=== PATIENT | male | born 1980 | race Caucasian/White ===

== ENCOUNTER 2022-09-04 14:53 | Inpatient (IN) | payer OTHER ==
[2022-09-04] MEDS ORDERED: MORPHINE SULFATE 4 MG/ML SYRINGE IV STA (15:35)
[2022-09-04] MEDS ORDERED: ACETAMINOPHEN IV (For NPO) 1,000 MG in EMPTY BAG 1 BAG IVPB STA ×2 (15:35→20:22)
--- NOTE | 2022-09-04 15:41 | ED ---
General Adult HPI - General Chief complaint: Abdominal Pain Stated complaint: Abd pain Time Seen by Provider: 09/04/22 15:05 Source: patient, EMS Mode of arrival: EMS Limitations: no limitations - History of Present Illness Initial comments: Dictation was produced using [employer] dictation software. please excuse any grammatical, word or spelling errors. Chief Complaint: 41-year-old male presents to the emergency department for abdominal pain. He is 24 hours status post colonoscopy History of Present Illness: Patient is a 41-year-old male yesterday he had a colonoscopy. He had 2 polyps removed. He does report that there were a couple clips placed. Patient states that shortly after he began experiencing severe abdominal pain. He also complains of fevers. Prior to the procedure patient has felt at baseline. Patient complains of nausea and diarrhea. Patient denies any respiratory infectious symptoms. The ROS documented in this emergency department record has been reviewed and confirmed by me. Those systems with pertinent positive or negative responses have been documented in the HPI. All other systems are other negative and/or noncontributory. PHYSICAL EXAM: General Impression: Alert and oriented x3, acute distress secondary to pain HEENT: Normocephalic atraumatic, extra-ocular movements intact, pupils equal and reactive to light bilaterally, mucous membranes moist. Cardiovascular: Heart regular rate and rhythm Chest: Able to complete full sentences, no retractions, no tachypnea Abdomen: guarding, diffuse abdominal tenderness worse in the left lower quadrant, non-distended, no organomegaly Musculoskeletal: Pulses present and equal in all extremities, no peripheral edema Motor: no focal deficits noted Neurological: CN II-XII grossly intact, no focal motor or sensory deficits noted Skin: Intact with no visualized rashes Psych: Normal affect and mood ED course: 41 y Old male presents emergency Department with fever of abdominal pain status post colonoscopy yesterday vital signs upon arrival shows temperature 101.8, rest of vital signs within acceptable limits. Nursing notes and chart review was performed My EKG interpretation: Ventricular rate 97, sinus rhythm,. 152, QRS 76, QTC 361. No MT prolongation, no QTC prolongation, no ST or T-wave changes noted. No old EKG for comparison Overall, this EKG is unremarkable Laboratory evaluation obtained. CBC, coag panel, walk panel was obtained. Of note patient has mild lactic acidosis 2.4. Slightly elevated liver enzymes. 4 panel viral PCR is negative. Computed tomography scan abdomen and pelvis shows limited pneumoperitoneum with fat stranding and wall thickening around the sigmoid colon site for colitis first diverticulitis. Case was discussed with Dr. Montague who is stone decorator for Dr. Adams the GI specialist that performed the colonoscopy yesterday. 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 He does however request the patient be admitted with antibiotics and medical monitoring.Case is also discussed with Dr. Sapp, on-call surgeon who is willing to consult on the patient. She did come and evaluate the patient at the bedside. Further recommendations pending Was pt. sent in by a medical professional or institution (, PA, TUBER HELPER, urgent care, hospital, or shelter...) When possible be specific @ -No Did you speak to anyone other than the patient for history (EMS, parent, family, police, friend...)? What history was obtained from this source @ -EMS Did you review nursing and triage notes (agree or disagree)? Why? @ -I reviewed and agree with nursing and triage notes Were old charts reviewed (outside hosp., previous admission, EMS record, old EKG, old radiological studies, urgent care reports/EKG's, shelter records)? Report findings @ -No old charts were reviewed Differential Diagnosis (chest pain, altered mental status, abdominal pain women, abdominal pain men, vaginal bleeding, weakness, fever, dyspnea, syncope, headache, dizziness, GI bleed, back pain, seizure, CVA, palpatations, mental health)? @ -Differential Abdominal Pain Men: Appendicitis, cholecystitis, diverticulosis, ischemic bowel, pancreatitis, hepatitis, UTI, gastroenteritis, AAA, incarcerated hernia, bowel obstruction, constipation, inflammatory bowel, hepatitis, peptic ulcer disease, splenic infarction, perforated viscus, testicular torsion, this is not meant to be an all-inclusive list EKG interpreted by me (3pts min.). @ -As above X-rays interpreted by me (1pt min.). @ -None done CT interpreted by me (1pt min.). @ -As above U/S interpreted by me (1pt. min.). @ -None done What testing was considered but not performed or refused? (CT, X-rays, U/S, labs)? Why? @ -X-ray was considered however patient is getting a computed tomography scan What meds were considered but not given or refused? Why? @ -None Did you discuss the management of the patient with other professionals (professionals i.e. , PA, TUBER HELPER, lab, RT, psych nurse, protective services social worker, molasses preparer, teacher, risk control officer, pillowcase cleaner)? Give summary @ -See above Was smoking cessation discussed for >3mins.? @ -No Was critical care preformed (if so, how long)? @ -No Were there social determinants of health that impacted care today? How? (Ho melessness, low income, unemployed, alcoholism, drug addiction, transportation, low edu. Level, literacy, decrease access to med. care, care home, rehab)? @ -No Was there de-escalation of care discussed even if they declined (Discuss DNR or withdrawal of care, Hospice)? DNR status @ -No What co-morbidities impacted this encounter? (DM, HTN, Smoking, COPD, CAD, Cancer, CVA, ARF, Chemo, Hep., AIDS, mental health diagnosis, sleep apnea, morbid obesity)? @ -None Was patient admitted / discharged? Hospital course, mention meds given and route, prescriptions, significant lab abnormalities, going to OR and other pertinent info. @ -See above Undiagnosed new problem with uncertain prognosis? @ -No Drug Therapy requiring intensive monitoring for toxicity (Heparin, Nitro, Insulin, Cardizem)? @ -No Were any procedures done? @ -No Diagnosis/symptom? @ -Post-polypectomy syndrome, iatrogenic pneumoperitoneum versus peritonitis Acute, or Chronic, or Acute on Chronic? @ -Acute Uncomplicated (without systemic symptoms) or Complicated (systemic symptoms)? @ -Complicated Side effects of treatment? @ -No Exacerbation, Progression, or Severe Exacerbation? @ -No Poses a threat to life or bodily function? How? (Chest pain, [place], [place], pneumonia, PE, COPD, DKA, ARF, appy, cholecystitis, CVA, Diverticulitis, Homicidal, Suicidal, threat to staff... and all critical care pts) @ -Yes - Related Data Allergies Allergy/AdvReac Type Severity Reaction Status Date / Time No Known Allergies Allergy Verified 09/04/22 16:26 Review of Systems ROS Statement: Those systems with pertinent positive or pertinent negative responses have been documented in the HPI. ROS Other: All systems not noted in ROS Statement are negative. General Exam Limitations: no limitations Course Vital Signs 09/04/22 09/04/22 09/04/22 14:59 15:00 15:01 Temperature 101.8 F H Pulse Rate 99 102 H 101 H Respiratory 24 20 20 Rate Blood Pressure 141/93 O2 Sat by Pulse 96 96 Oximetry 09/04/22 09/04/22 09/04/22 15:30 16:00 16:30 Temperature Pulse Rate 98 100 100 Respiratory 20 20 20 Rate Blood Pressure 133/90 148/96 135/92 O2 Sat by Pulse 97 98 Oximetry 09/04/22 09/04/22 17:00 17:46 Temperature 100.3 F H Pulse Rate 106 H Respiratory Rate Blood Pressure 123/88 O2 Sat by Pulse 95 Oximetry Medical Decision Making - Lab Data Result diagrams: 09/04/22 15:31 09/04/22 15:31 Lab Results 09/04/22 09/04/22 09/04/22 Range/Units 15:31 15:31 15:31 WBC 6.5 (3.8-10.6) k/uL RBC 3.93 L (4.30-5.90) m/uL Hgb 13.4 (13.0-17.5) gm/dL Hct 40.1 (39.0-53.0) % MCV 102.1 H (80.0-100.0) fL MCH 34.0 (25.0-35.0) pg MCHC 33.3 (31.0-37.0) g/dL RDW 14.2 (11.5-15.5) % Plt Count 174 (150-450) k/uL MPV 8.1 Neutrophils % 87 % Lymphocytes % 6 % Monocytes % 5 % Eosinophils % 1 % Basophils % 0 % Neutrophils # 5.7 (1.3-7.7) k/uL Lymphocytes # 0.4 L (1.0-4.8) k/uL Monocytes # 0.3 (0-1.0) k/uL Eosinophils # 0.0 (0-0.7) k/uL Basophils # 0.0 (0-0.2) k/uL Macrocytosis Slight PT 10.6 (9.0-12.0) sec INR 1.0 (<1.2) APTT 23.2 (22.0-30.0) sec Sodium 134 L (137-145) mmol/L Potassium 5.4 H (3.5-5.1) mmol/L Chloride 102 (98-107) mmol/L Carbon Dioxide 25 (22-30) mmol/L Anion Gap 7 mmol/L BUN 11 (9-20) mg/dL Creatinine 1.19 (0.66-1.25) mg/dL Est GFR (CKD-EPI)AfAm 88 (>60 ml/min/1.73 sqM) Est GFR (CKD-EPI)NonAf 76 (>60 ml/min/1.73 sqM) Glucose 151 H (74-99) mg/dL Lactic Ac Sepsis Rflx Plasma Lactic Acid Jose Angel (0.7-2.0) mmol/L Calcium 9.0 (8.4-10.2) mg/dL Total Bilirubin 3.0 H (0.2-1.3) mg/dL AST 124 H (17-59) U/L ALT 90 H (4-49) U/L Alkaline Phosphatase 152 H (38-126) U/L Total Protein 8.2 (6.3-8.2) g/dL Albumin 4.5 (3.5-5.0) g/dL Lipase 18 L (23-300) U/L Influenza Type A (PCR) (Not Detectd) Influenza Type B (PCR) (Not Detectd) RSV (PCR) (Not Detectd) SARS-CoV-2 (PCR) (Not Detectd) 09/04/22 09/04/22 09/04/22 Range/Units 15:31 15:31 16:57 WBC (3.8-10.6) k/uL RBC (4.30-5.90) m/uL Hgb (13.0-17.5) gm/dL Hct (39.0-53.0) % MCV (80.0-100.0) fL MCH (25.0-35.0) pg MCHC (31.0-37.0) g/dL RDW (11.5-15.5) % Plt Count (150-450) k/uL MPV Neutrophils % % Lymphocytes % % Monocytes % % Eosinophils % % Basophils % % Neutrophils # (1.3-7.7) k/uL Lymphocytes # (1.0-4.8) k/uL Monocytes # (0-1.0) k/uL Eosinophils # (0-0.7) k/uL Basophils # (0-0.2) k/uL Macrocytosis PT (9.0-12.0) sec INR (<1.2) APTT (22.0-30.0) sec Sodium (137-145) mmol/L Potassium (3.5-5.1) mmol/L Chloride (98-107) mmol/L Carbon Dioxide (22-30) mmol/L Anion Gap mmol/L BUN (9-20) mg/dL Creatinine (0.66-1.25) mg/dL Est GFR (CKD-EPI)AfAm (>60 ml/min/1.73 sqM) Est GFR (CKD-EPI)NonAf (>60 ml/min/1.73 sqM) Glucose (74-99) mg/dL Lactic Ac Sepsis Rflx Y Plasma Lactic Acid Jose Angel 2.4 H* (0.7-2.0) mmol/L Calcium (8.4-10.2) mg/dL Total Bilirubin (0.2-1.3) mg/dL AST (17-59) U/L ALT (4-49) U/L Alkaline Phosphatase (38-126) U/L Total Protein (6.3-8.2) g/dL Albumin (3.5-5.0) g/dL Lipase (23-300) U/L Influenza Type A (PCR) Not Detected (Not Detectd) Influenza Type B (PCR) Not Detected (Not Detectd) RSV (PCR) Not Detected (Not Detectd) SARS-CoV-2 (PCR) Not Detected (Not Detectd) Critical Care Time Critical Care Time: Yes Total Critical Care Time: 33 Disposition Clinical Impression: Abdominal pain, Pneumoperitoneum Disposition: ADMITTED IP TO THIS [facility] Condition: Serious Referrals: None,Stated [Primary Care Provider] - 1-2 days Decision Time: 19:03
[2022-09-04 16:41] LABS: Albumin 4.5 g/dL (3.5-5.0); Potassium 5.4 mmol/L (3.5-5.1); Total Protein 8.2 g/dL (6.3-8.2)
[2022-09-04 16:51] LABS: Partial Thromboplastin Time 23.2 sec (22.0-30.0); Prothrombin Time 10.6 sec (9.0-12.0)
[2022-09-04 16:56] LABS: Basophils % (A) 0 %; Eosinophils % (A) 1 %; HCT 40.1 % (39.0-53.0); HGB 13.4 gm/dL (13.0-17.5); Lymphocytes # (A) 0.4 k/uL (1.0-4.8); Lymphocytes % (A) 6 %; MCHC 33.3 g/dL (31.0-37.0); MCV 102.1 fL (80.0-100.0); Macrocytosis Slight; Mean Platelet Volume 8.1; Monocytes # (A) 0.3 k/uL (0-1.0); Monocytes % (A) 5 %; Neutrophils # (A) 5.7 k/uL (1.3-7.7); Neutrophils % (A) 87 %; Platelet Count 174 k/uL (150-450); RBC 3.93 m/uL (4.30-5.90); RDW 14.2 % (11.5-15.5); WBC 6.5 k/uL (3.8-10.6)
[2022-09-04] MEDS ORDERED: ONDANSETRON 4 MG/2 ML VIAL IVP STA (17:09)
[2022-09-04] MEDS ORDERED: PIPERACILLIN-TAZOBACTAM 3.375 GM in SODIUM CHLORIDE 0.9% 100 ML IVPB STA ×2 (17:30→20:21)
--- NOTE | 2022-09-04 17:35 | CT ---
EXAMINATION TYPE: CT abdomen pelvis w con DATE OF EXAM: 09/04/2022 COMPARISON: None HISTORY: abd pain, post op colonoscopy with clip placement CT DLP: 1709.8 mGycm Automated exposure control for dose reduction was used. CONTRAST: Performed with IV Contrast, patient injected with 100 mL of Isovue 300. Images obtained from the diaphragm to the floor the pelvis with the IV contrast. There is some patchy atelectasis at the lung bases. Heart size is normal. No pericardial effusion. Th ere are clips from cholecystectomy. Bile ducts are not dilated. No focal liver defect. Spleen is inta ct. The stomach is intact. There is no pancreatic mass. There is no adrenal mass. Kidneys show satisfactory contrast opacification. No hydronephrosis. Ureter s are not dilated. No retroperitoneal adenopathy. There is bilateral hip prosthesis. Bony pelvis is i ntact. The bladder distends smoothly. No evidence of a pelvic mass. There are a few sigmoid diverticu la. There is mild wall thickening and fat stranding around the proximal sigmoid colon and the descend ing colon. There is small amount of free air on the left side adjacent to the splenic flexure and the stomach. There is minimal free air anterior to the stomach. The lumbar vertebrae have normal alignment. Posterior elements are intact. No compression fracture. B deangelo pelvis is intact. IMPRESSION: There is limited pneumoperitoneum. Fat stranding and wall thickening involving the sigmoid colon cons istent with diverticulitis or colitis. Single surgical clip noted in the mid sigmoid colon consistent with the history of colonoscopy and surgical clip. Mild subsegmental atelectasis at the lung bases. Exam was discussed with emergency room attending staff at 5:30 PM.
[2022-09-04] MEDS ORDERED: HYDROmorphone 1 MG/ML 1 ML SYRINGE IVP STA (17:59)
[2022-09-04] MEDS ORDERED: ONDANSETRON 4 MG/2 ML VIAL IVP PRN (18:55)
[2022-09-04] MEDS ORDERED: NALOXONE 0.4 MG/ML 1 ML VIAL IV PRN (18:55)
[2022-09-04] MEDS: SODIUM CHLORIDE 0.9% 1,000 ML IV SCH (19:35)
--- NOTE | 2022-09-04 19:43 | P.GSHP ---
History of Present Illness H&P Date: 09/04/22 Chief Complaint: foci of free air on CT s/p colonoscopy 41 M who underwent colonoscopy on 09/03 at [facility] as part of an ongoing work up for electrolyte dyscrasia, joint pain & diarrhea. Underwent hot snare polypectomy at the time of colonoscopy. Yesterday on drive home felt cramping diffuse abdominal pain, which increased in severity this morning. Hasn't eaten since prior to colonoscopy prep; had a bit of water this morning. Passing clear liquid stools. Associated nausea. Pain progressively got worse throughout the day & came to ER to get evaluated. CT was concerning for foci of free air along sigmoid colon. ER physician was in touch with endoscopist at [facility]; suspected post polypectomy syndrome. On ride to hospital, bumps in road worsened pain. Dilaudid helped briefly with pain. - Constitutional Comment: sweating Constitutional: Reports anorexia, Reports fever, Reports poor appetite, Reports weakness - Cardiovascular Cardiovascular: Reports high blood pressure, Reports shortness of breath - Respiratory Respiratory: Reports pain on inspiration - Gastrointestinal Gastrointestinal: Reports abdominal pain, Reports loss of appetite, Reports nausea - Musculoskeletal Comment: Chronic pain. Severe gout. - Psychiatric Psychiatric: Reports anxiety - Endocrine Comment: Electrolyte dyscrasia. Past Medical History Additional Past Medical History / Comment(s): Gout, HTN, Electrolyte abnormality Past Surgical History: Joint Replacement Additional Past Surgical History / Comment(s): Bilateral hip replacement, Left shoulder replacement, Denies abdominal surgeries, Colonoscopy Past Psychological History: Anxiety Smoking Status: Vaper Past Alcohol Use History: Occasional Past Drug Use History: Marijuana - Past Family History Father Additional Family Medical History / Comment(s): Diverticulitis, Gout, HTN Medications and Allergies Home Medications Medication Instructions Recorded Confirmed Type Calcium Carbonate [Tums] 1,000 mg PO BID 09/04/22 09/04/22 History Gabapentin [Neurontin] 300 mg PO BID 09/04/22 09/04/22 History Magnesium Oxide [Mag-Ox] 400 mg PO BID 09/04/22 09/04/22 History Multivitamins, Thera [Multivitamin 1 tab PO DAILY 09/04/22 09/04/22 History (formulary)] Potassium Chloride [Potassium 30 meq PO BID 09/04/22 09/04/22 History Chloride ER] Sildenafil Citrate 50 mg PO DAILY PRN 09/04/22 09/04/22 History allopurinoL [Zyloprim] 200 mg PO DAILY 09/04/22 09/04/22 History calcitrioL [Calcitriol] 0.25 mcg PO DAILY 09/04/22 09/04/22 History hydrOXYzine HCL [Atarax] 25 mg PO TID PRN 09/04/22 09/04/22 History lisinopriL [Zestril] 20 mg PO DAILY 09/04/22 09/04/22 History Allergies Allergy/AdvReac Type Severity Reaction Status Date / Time No Known Allergies Allergy Verified 09/04/22 19:08 Surgical - Exam Vital Signs Pulse Resp 99 24 09/04/22 14:59 09/04/22 14:59 - General moderate distress, severe pain - Eyes no icteric - ENT poor pen[facility] - Respiratory normal respiratory effort, clear to auscultation - Cardiovascular Rhythm: regular - Abdomen Diffuse tenderness to palpation, peritoneal. Abdomen: tender, no surgical scars, guarding, distended - Integumentary Diaphoretic - Psychiatric oriented to person, oriented to place, memory intact Results - Labs 09/04/22 15:31 09/04/22 15:31 Abnormal Lab Results - Last 24 Hours (Table) 09/04/22 09/04/22 09/04/22 Range/Units 15:31 15:31 15:31 RBC 3.93 L (4.30-5.90) m/uL MCV 102.1 H (80.0-100.0) fL Lymphocytes # 0.4 L (1.0-4.8) k/uL Sodium 134 L (137-145) mmol/L Potassium 5.4 H (3.5-5.1) mmol/L Glucose 151 H (74-99) mg/dL Plasma Lactic Acid Jose Angel 2.4 H* (0.7-2.0) mmol/L Total Bilirubin 3.0 H (0.2-1.3) mg/dL AST 124 H (17-59) U/L ALT 90 H (4-49) U/L Alkaline Phosphatase 152 H (38-126) U/L Lipase 18 L (23-300) U/L Diabetes panel 09/04/22 Range/Units 15:31 Sodium 134 L (137-145) mmol/L Potassium 5.4 H (3.5-5.1) mmol/L Chloride 102 (98-107) mmol/L Carbon Dioxide 25 (22-30) mmol/L BUN 11 (9-20) mg/dL Creatinine 1.19 (0.66-1.25) mg/dL Glucose 151 H (74-99) mg/dL Calcium 9.0 (8.4-10.2) mg/dL AST 124 H (17-59) U/L ALT 90 H (4-49) U/L Alkaline Phosphatase 152 H (38-126) U/L Total Protein 8.2 (6.3-8.2) g/dL Albumin 4.5 (3.5-5.0) g/dL Calcium panel 09/04/22 Range/Units 15:31 Calcium 9.0 (8.4-10.2) mg/dL Albumin 4.5 (3.5-5.0) g/dL Pituitary panel 09/04/22 Range/Units 15:31 Sodium 134 L (137-145) mmol/L Potassium 5.4 H (3.5-5.1) mmol/L Chloride 102 (98-107) mmol/L Carbon Dioxide 25 (22-30) mmol/L BUN 11 (9-20) mg/dL Creatinine 1.19 (0.66-1.25) mg/dL Glucose 151 H (74-99) mg/dL Calcium 9.0 (8.4-10.2) mg/dL Adrenal panel 09/04/22 Range/Units 15:31 Sodium 134 L (137-145) mmol/L Potassium 5.4 H (3.5-5.1) mmol/L Chloride 102 (98-107) mmol/L Carbon Dioxide 25 (22-30) mmol/L BUN 11 (9-20) mg/dL Creatinine 1.19 (0.66-1.25) mg/dL Glucose 151 H (74-99) mg/dL Calcium 9.0 (8.4-10.2) mg/dL Total Bilirubin 3.0 H (0.2-1.3) mg/dL AST 124 H (17-59) U/L ALT 90 H (4-49) U/L Alkaline Phosphatase 152 H (38-126) U/L Total Protein 8.2 (6.3-8.2) g/dL Albumin 4.5 (3.5-5.0) g/dL - Imaging Abdominal x-ray: report reviewed, image reviewed (CT shows foci of free air along colon & anterior stomach. Diverticula present.) Assessment and Plan Assessment: Abdominal pain with signs of peritonitis Foci of pneumoperitoneum on CT S/P colonoscopy with polypectomy 09/03 ([facility]) Plan: To OR for diagnostic laparoscopy, possible laparotomy, possible bowel resection, possible ostomy. Post-op admission. Time with Patient: Less than 30 (About 30 minutes spent discussing history, diagnosis & surgery. Details of procedure along with risks & benefits disucssed with patient & his girlfriend. Need for possible colostomy also discussed. Quesions answered.)
[2022-09-04] MEDS: HYDROmorphone 1 MG/ML 1 ML SYRINGE IVP PRN ×2 (19:45→23:39)
[2022-09-04] MEDS ORDERED: DEXAMETHASONE SOD PHOSPHATE 4 MG/ML 1 ML VIAL IV ONE (20:00)
[2022-09-04] MEDS ORDERED: LIDOCAINE 1% (10MG/ML) FOR IV START INTRADERMA PRN (20:00)
[2022-09-04] MEDS ORDERED: LACTATED RINGERS 1,000 ML IV SCH (20:00)
[2022-09-04] MEDS ORDERED: PROPOFOL 10 MG/ML 20 ML VIAL IV ONE (20:10)
[2022-09-04] MEDS ORDERED: MIDAZOLAM 2 MG/2 ML VIAL ONE (20:10)
[2022-09-04] MEDS ORDERED: GLYCOPYRROLATE 0.2 MG/ML 2 ML VIAL ONE (20:10)
[2022-09-04] MEDS ORDERED: fentaNYL (PF) 50 MCG/ML 2 ML AMP ONE (20:10)
[2022-09-04] MEDS ORDERED: LACTATED RINGERS 1,000 ML IV ONE ×3 (20:10→22:38)
[2022-09-04] MEDS ORDERED: SODIUM CHLORIDE 0.9% 1,000 ML IV ONE (20:10)
[2022-09-04] MEDS ORDERED: SUCCINYLCHOLINE CHLORIDE 200 MG/10 ML VIAL IV ONE (20:10)
[2022-09-04] MEDS ORDERED: NEOSTIGMINE 1 MG/ML 10 ML VIAL ONE (20:10)
[2022-09-04] MEDS ORDERED: LIDOCAINE 2% INJ 20 MG/ML (2 ML VIAL) ONE (20:10)
[2022-09-04] MEDS ORDERED: ROCURONIUM 10 MG/ML (5 ML VIAL) IV ONE (20:10)
[2022-09-04] MEDS ORDERED: KETAMINE 10 MG/ML 20 ML VIAL ONE (20:10)
[2022-09-04] MEDS ORDERED: KETOROLAC 15 MG/ML 1 ML VIAL IVP PRN (22:38)
--- NOTE | 2022-09-04 22:48 | P.OP ---
Date of Procedure: 09/04/22 Preoperative Diagnosis: Abdominal pain with signs of peritonitis Focal pneumoperitoneum on CT S/P Colonoscopy 09/03 Postoperative Diagnosis: Pin hole perforation of sigmoid colon Procedure(s) Performed: Diagnostic laparoscopy, converted to laparotomy with oversew of pinpoint perforation Anesthesia: GETA Surgeon: Sylwia Sapp Estimated Blood Loss (ml): 25 Pathology: none sent Condition: stable Disposition: PACU (Please see dictation for full details.)
[2022-09-05 01:00] LABS: Appearance,Urine Clear (Clear); Bilirubin,Urine Negative (Negative); Blood,Urine Negative (Negative); Color,Urine Yellow; Glucose,Urine (UA) 1+ (Negative); Ketones,Urine Negative (Negative); Leukocyte Esterase,Urine Negative (Negative); Nitrite,Urine Negative (Negative); Protein,Urine Negative (Negative); Specific Gravity,Urine 1.037 (1.001-1.035); Urobilinogen,Urine <2.0 mg/dL (<2.0)
[2022-09-05] MEDS: HYDROmorphone 1 MG/ML 1 ML SYRINGE IVP PRN ×8 (02:38→23:42)
[2022-09-05] MEDS: PIPERACILLIN-TAZOBACTAM 3.375 GM in SODIUM CHLORIDE 0.9% 100 ML IVPB SCH ×3 (04:31→20:06)
[2022-09-05] MEDS: SODIUM CHLORIDE 0.9% 1,000 ML IV SCH ×5 (04:31→15:51)
[2022-09-05] MEDS ORDERED: HYDROmorphone 0.5 MG/0.5 ML SYRINGE IVP PRN (07:00)
[2022-09-05] MEDS ORDERED: ONDANSETRON 4 MG/2 ML VIAL IVP PRN (07:00)
[2022-09-05] MEDS: PANTOPRAZOLE 40 MG/10 ML VIAL IV SCH (08:34)
[2022-09-05] MEDS ORDERED: ENOXAPARIN 30 MG/0.3 ML SYRINGE SQ SCH (09:00)
[2022-09-05 09:29] LABS: African American GFR (CKD) 72.3 (60.0-200.0); Albumin 3.6 g/dL (3.8-4.9); Albumin/Globulin Ratio 1.44 (1.60-3.17); Anion Gap 9.9 mmol/L (10.00-18.00); BUN/Creat Ratio 10.14 Ratio (12.00-20.00); Blood Urea Nitrogen 14.2 mg/dL (9.0-27.0); Calcium 7.9 mg/dL (8.7-10.3); Carbon Dioxide 23.1 mmol/L (20.0-27.5); Globulin 2.5 g/dL (1.6-3.3); Magnesium 1.2 mg/dL (1.5-2.4); Non-African American GFR(CKD) 62.4 (60.0-200.0); Phosphorus 4.4 mg/dL (2.4-5.1); Potassium 5.3 mmol/L (3.5-5.5); Total Bilirubin 2.3 mg/dL (0.30-1.20); Total Protein 6.1 g/dL (6.2-8.2)
[2022-09-05 10:51] LABS: Basophils # (A) 0.02 X 10*3/uL (0.00-0.10); Basophils % (A) 0.2 %; Eosinophils # (A) 0 X 10*3/uL (0.04-0.35); Eosinophils % (A) 0 %; HCT 32.8 % (39.6-50.0); HGB 10.7 g/dL (13.0-17.0); Immature Grans, Automated 0.2 %; Lymphocytes # (A) 0.52 X 10*3/uL (0.90-5.00); Lymphocytes % (A) 5.2 %; MCH 34.3 pg (27.0-32.0); MCHC 32.6 g/dL (32.0-37.0); MCV 105.1 fL (80.0-97.0); Mean Platelet Volume 10.3 fL (9.5-12.2); Monocytes # (A) 0.78 X 10*3/uL (0.20-1.00); Monocytes % (A) 7.8 %; NRBC Per 100 WBC 0 /100 WBCS (0.0-0.0); Neutrophils # (A) 8.62 X 10*3/uL (1.80-7.70); Neutrophils % (A) 86.6 %; Platelet Count 164 X 10*3/uL (140-440); RBC 3.12 X 10*6/uL (4.40-5.60); RBC Morphology NORMAL; RDW 13.9 % (11.5-14.5); WBC 9.96 X 10*3/uL (4.50-10.00)
[2022-09-05] MEDS: GABAPENTIN 300 MG CAP PO SCH ×2 (11:35→20:48)
[2022-09-05] MEDS: allopurinoL 100 MG TAB PO SCH (11:35)
[2022-09-05] MEDS: lisinopriL 20 MG TAB PO SCH (11:35)
[2022-09-05] MEDS ORDERED: MAGNESIUM OXIDE 400 MG TAB PO STA (12:24)
--- NOTE | 2022-09-05 12:35 | P.PN ---
Subjective Progress Note Date: 09/05/22 Principal diagnosis: Microperforation of sigmoid colon S/P Colonoscopy 09/03 ([facility]) 41 M who underwent colonoscopy on 09/[address] [facility] as part of an ongoing work up for electrolyte dyscrasia, joint pain & diarrhea. Underwent hot snare polypectomy at the time of colonoscopy. Yesterday on drive home felt cramping diffuse abdominal pain, which increased in severity this morning. Hasn't eaten since prior to colonoscopy prep; had a bit of water this morning. Passing clear liquid stools. Associated nausea. Pain progressively got worse throughout the day & came to ER to get evaluated. CT was concerning for foci of free air along sigmoid colon. ER physician was in touch with endoscopist at [facility]; suspected post polypectomy syndrome. On ride to hospital, bumps in road worsened pain. Dilaudid helped briefly with pain. Taken to OR for diagnostic laparoscopy, succus noted in the pelvis & converted to open. Small pin point perforation with liquid stool spillage noted. Perforation was tiny & oversewn. Liver was noted to be extensively nodular & cirrhotic appearing. Overnight did well. Pain as expected. Feels better than he did yesterday. No nausea. Objective - Vital Signs Vital signs: Vital Signs Temp 98.3 F 09/05/22 06:50 Pulse 84 09/05/22 06:50 Resp 17 09/05/22 06:50 BP 118/81 09/05/22 06:50 Pulse Ox 98 09/05/22 06:50 FiO2 Intake & Output 09/04/22 09/05/22 09/05/22 18:59 06:59 18:59 Intake Total 2250 100 Output Total 1075 Balance 1175 100 Weight 83.915 kg 83.915 kg Intake: IV 2250 Intake, IV Titration 100 Amount Piperacillin-Tazobactam 3 100 .375 gm In Sodium Chloride 0.9% 100 ml @ 25 mls/hr IVPB Q8H [facility] Rx#: [id number] Output: Urine 1050 Estimated Blood Loss 25 Other: Voiding Method Indwelling Catheter Indwelling Catheter - Constitutional Constitutional Comment(s): Non toxic appearing General appearance: Present: cooperative - EENT Eyes: Absent: scleral icterus ENT: Present: hearing grossly normal. Absent: hard of hearing - Respiratory Respiratory: bilateral: CTA - Cardiovascular Rhythm: regular - Gastrointestinal Gastrointestinal Comment(s): Appropriately tender to palpation, much improved from yesterday; no longer peritoneal. General gastrointestinal: Present: soft. Absent: distended - Genitourinary Genitourinary Comment(s): Bishop in place. Concentrated urine. - Integumentary Integumentary Comment(s): Dry, no longer diaphoretic. - Neurologic Neurologic Comment(s): No gross deficits - Psychiatric Psychiatric Comment(s): Alert & oriented, cooperative - Labs CBC & Chem 7: 09/05/22 04:07 09/05/22 04:07 Labs: Abnormal Lab Results - Last 24 Hours (Table) 09/04/22 09/04/22 09/04/22 Range/Units 15:31 15:31 15:31 RBC 3.93 L (4.30-5.90) m/uL MCV 102.1 H (80.0-100.0) fL Lymphocytes # 0.4 L (1.0-4.8) k/uL Sodium 134 L (137-145) mmol/L Potassium 5.4 H (3.5-5.1) mmol/L Anion Gap (10.00-18.00) mmol/L BUN/Creatinine Ratio (12.00-20.00) Ratio Glucose 151 H (74-99) mg/dL Plasma Lactic Acid Jose Angel 2.4 H* (0.7-2.0) mmol/L Calcium (8.7-10.3) mg/dL Magnesium (1.5-2.4) mg/dL Total Bilirubin 3.0 H (0.2-1.3) mg/dL AST 124 H (17-59) U/L ALT 90 H (4-49) U/L Alkaline Phosphatase 152 H (38-126) U/L Total Protein (6.2-8.2) g/dL Albumin (3.8-4.9) g/dL Albumin/Globulin Ratio (1.60-3.17) g/dL Lipase 18 L (23-300) U/L Ur Specific Proctor (1.001-1.035) Urine Glucose (UA) (Negative) 09/04/22 09/05/22 09/05/22 Range/Units 18:57 00:45 04:07 RBC (4.30-5.90) m/uL MCV (80.0-100.0) fL Lymphocytes # (1.0-4.8) k/uL Sodium (137-145) mmol/L Potassium (3.5-5.1) mmol/L Anion Gap 9.90 L (10.00-18.00) mmol/L BUN/Creatinine Ratio 10.14 L (12.00-20.00) Ratio Glucose 158 H (74-99) mg/dL Plasma Lactic Acid Jose Angel 2.3 H* (0.7-2.0) mmol/L Calcium 7.9 L (8.7-10.3) mg/dL Magnesium 1.2 L (1.5-2.4) mg/dL Total Bilirubin 2.30 H (0.2-1.3) mg/dL AST 52 H (17-59) U/L ALT 62 H (4-49) U/L Alkaline Phosphatase (38-126) U/L Total Protein 6.1 L (6.2-8.2) g/dL Albumin 3.6 L (3.8-4.9) g/dL Albumin/Globulin Ratio 1.44 L (1.60-3.17) g/dL Lipase (23-300) U/L Ur Specific Proctor 1.037 H (1.001-1.035) Urine Glucose (UA) 1+ H (Negative) Assessment and Plan Assessment: Abdominal pain with signs of peritonitis Foci of pneumoperitoneum on CT S/P colonoscopy with polypectomy 09/03 ([facility]) Plan: OK for NPO x medications. Continue NGT to LIS for another 24 hours. Will optimize pain control by adding Ultram, Flexeril; will avoid Tylenol products due to liver. Bishop to be removed. IVF to continue while NPO. Encourage IS, ambulation; discussed goal is to get out of bed into chair today. IS while awake; deep breathing. AM labs ordered. Magnesium supplementation. Time with Patient: Less than 30
[2022-09-05] MEDS: BENZOCAINE SPRAY 1 CAN MUCOUS MEM PRN ×2 (12:59→20:08)
[2022-09-05] MEDS: CYCLOBENZAPRINE 5 MG TAB PO SCH ×2 (17:09→22:08)
[2022-09-05] MEDS: metroNIDAZOLE-NS PMX 500 MG in SALINE 1 100ML.BAG IVPB SCH ×2 (17:42→23:43)
--- NOTE | 2022-09-05 17:46 | P.CONS ---
History of Present Illness - Reason for Consult Consult date: 09/05/22 Medical management Requesting physician: Sylwia Sapp - Chief Complaint Abdominal pain - History of Present Illness This is a pleasant 41-year-old patient who is from out of town. Chronic stable medical conditions include gout, hypertension, anxiety and chronic pain for which he takes Neurontin. Patient yesterday underwent colonoscopy in [facility]. Polyp was removed.. Following that patient drove up to [place] on with his girlfriend. Yesterday evening started having increasing abdominal pain. Started becoming uncomfortable. Nausea. Decided to come to the ER. Computed tomography scan the ER showed limited pneumoperitoneum. Single surgical clip was noted in the mid sigmoid colon. Fat stranding and wall thickening involving the sigmoid colon was also noted. underwent laparotomy with oversew of the pinpoint perforation by . She did notice some spillage of stool in the abdomen. Today patient has NG tube to suction. Having abdominal pain. No flatus. On IV Zosyn. Patient is also noted to have a cirrhotic liver. Review of systems: GEN.: Tired EYES: None HEENT: NG tube NECK: None RESPIRATORY: None CARDIOVASCULAR: None GASTROINTESTINAL: As above GENITOURINARY: None MUSCULOSKELETAL: None LYMPHATICS: None HEMATOLOGICAL: None PSYCHIATRY: None NEUROLOGICAL: None Past medical history to include: Hypertension, gout, chronic pain Social history: Works at [employer]. Alcohol rarely. Smoking. Does use marijuana Physical examination: VITAL SIGNS: 101.8, 101, 20, 147/93, 96% room air upon presentation GENERAL: BMI 25.1, resting in bed uncomfortable. EYES: Pupils equal. Conjunctiva normal. HEENT: External appearance of nose and ears normal, oral cavity grossly normal. NECK: JVD not raised; masses not palpable. HEART: First and second heart sounds are normal; no edema. LUNGS: Respiratory rate normal; clear to auscultation. ABDOMEN: Soft, tender, no guarding rigidity, dressing over the midline incision, liver spleen not palpable, no masses palpable. PSYCH: Alert and oriented x3; mood and affect anxiousl. MUSCULOSKELETAL:No Clubbing/cyanosis;muscles-grossly intact NEUROLOGICAL: Cranial nerves grossly intact; no facial asymmetry, power and sensation grossly intact. LYMPHATICS: No lymph nodes palpable in the axilla and neck INVESTIGATIONS, reviewed in the clinical context: White count 6.5 hemoglobin 13.4 platelets 174 sodium 134 potassium 5.4 creatinine 1.19 Lactic acid 2.4 AST 124 ALT 90 Influenza type A/type B/RSV/COVID-19: Not detected EKG tracing personally reviewed by me-normal sinus rhythm Assessment and plan: -Acute microperforation of the colon following removal of large polyp at an outside facility.oversew of the microperforation. Surgeon:Dr Church -Secondary peritonitis secondary to stool overspill IV Zosyn. IV Flagyl. -Cirrhosis discovered during laboratory. Abdominal ultrasound for fatty liver screening. Ferritin. Also check for hepatitis B surface antigen, antibody to hepatitis B surface antigen, hepatitis B core antibody, hepatitis C virus antibody. -Chronic gout Allopurinol -Essential hypertension Zestril -Chronic pain Neurontin Care was discussed with the patient. Questions answered. IV fluids. IV Zosyn. IV Flagyl. Resume home medications. Workup for cirrhosis. Care was discussed with the surgeon on the case. Thank you Past Medical History Past Medical History: Osteoarthritis (OA) Additional Past Medical History / Comment(s): Gout, HTN, Electrolyte abnormality History of Any Multi-Drug Resistant Organisms: None Reported Past Surgical History: Joint Replacement Additional Past Surgical History / Comment(s): Bilateral hip replacement, Left shoulder replacement, Denies abdominal surgeries, Colonoscopy Past Psychological History: Anxiety Smoking Status: Vaper Past Alcohol Use History: Occasional Past Drug Use History: Marijuana - Past Family History Father Additional Family Medical History / Comment(s): Diverticulitis, Gout, HTN Medications and Allergies Home Medications Medication Instructions Recorded Confirmed Type Calcium Carbonate [Tums] 1,000 mg PO BID 09/04/22 09/04/22 History Gabapentin [Neurontin] 300 mg PO BID 09/04/22 09/04/22 History Magnesium Oxide [Mag-Ox] 400 mg PO BID 09/04/22 09/04/22 History Multivitamins, Thera [Multivitamin 1 tab PO DAILY 09/04/22 09/04/22 History (formulary)] Potassium Chloride [Potassium 30 meq PO BID 09/04/22 09/04/22 History Chloride ER] Sildenafil Citrate 50 mg PO DAILY PRN 09/04/22 09/04/22 History allopurinoL [Zyloprim] 200 mg PO DAILY 09/04/22 09/04/22 History calcitrioL [Calcitriol] 0.25 mcg PO DAILY 09/04/22 09/04/22 History hydrOXYzine HCL [Atarax] 25 mg PO TID PRN 09/04/22 09/04/22 History lisinopriL [Zestril] 20 mg PO DAILY 09/04/22 09/04/22 History Allergies Allergy/AdvReac Type Severity Reaction Status Date / Time No Known Allergies Allergy Verified 09/04/22 19:08 Physical Exam Vitals: Vital Signs Temp Pulse Pulse Pulse Resp BP BP 09/05/22 06:50 98.3 F 84 17 118/81 09/05/22 01:13 95 102/64 09/05/22 00:58 98 115/75 09/05/22 00:43 99 136/84 09/05/22 00:28 99 116/72 09/05/22 00:13 99 117/78 09/04/22 23:58 91 121/66 09/04/22 23:43 93 121/87 09/04/22 23:35 98.1 F 91 20 124/87 09/04/22 23:28 92 124/87 09/04/22 23:16 18 09/04/22 23:03 103 H 18 09/04/22 22:48 111 H 18 09/04/22 22:33 97.3 F L 130 H 18 09/04/22 19:00 98 16 111/80 09/04/22 18:30 103 H 18 119/80 09/04/22 18:00 102 H 16 125/76 09/04/22 17:46 100.3 F H 09/04/22 17:30 104 H 20 122/72 09/04/22 17:00 106 H 123/88 09/04/22 16:30 100 20 135/92 09/04/22 16:00 100 20 148/96 09/04/22 15:30 98 20 133/90 09/04/22 15:01 101.8 F H 101 H 20 141/93 09/04/22 15:00 102 H 20 09/04/22 14:59 99 24 BP Pulse Ox 09/05/22 06:50 98 09/05/22 01:13 95 09/05/22 00:58 95 09/05/22 00:43 92 L 09/05/22 00:28 98 09/05/22 00:13 95 09/04/22 23:58 95 09/04/22 23:43 92 L 09/04/22 23:35 95 09/04/22 23:28 94 L 09/04/22 23:16 138/88 98 09/04/22 23:03 143/86 09/04/22 22:48 140/83 100 09/04/22 22:33 155/84 100 09/04/22 19:00 95 09/04/22 18:30 95 09/04/22 18:00 96 09/04/22 17:46 09/04/22 17:30 95 09/04/22 17:00 95 09/04/22 16:30 98 09/04/22 16:00 09/04/22 15:30 97 09/04/22 15:01 96 09/04/22 15:00 96 09/04/22 14:59 Intake and Output 09/04/22 09/05/22 09/05/22 22:59 06:59 14:59 Intake Total 2250 100 Output Total 525 550 Balance 1725 -550 100 Intake: IV 2250 Intake, IV Titration 100 Amount Piperacillin-Tazobactam 3 100 .375 gm In Sodium Chloride 0.9% 100 ml @ 25 mls/hr IVPB Q8H [facility] Rx#: [id number] Output: Urine 500 550 Estimated Blood Loss 25 Other: Voiding Method Indwelling Catheter Indwelling Catheter Weight 83.915 kg Results CBC & Chem 7: 09/05/22 04:07 09/05/22 04:07 Labs: Abnormal Lab Results - Last 24 Hours (Table) 09/04/22 09/04/22 09/04/22 Range/Units 15:31 15:31 15:31 RBC 3.93 L (4.30-5.90) m/uL Hgb (13.0-17.0) g/dL Hct (39.6-50.0) % MCV 102.1 H (80.0-100.0) fL MCH (27.0-32.0) pg Neutrophils # (1.80-7.70) X 10*3/uL Lymphocytes # 0.4 L (1.0-4.8) k/uL Eosinophils # (0.04-0.35) X 10*3/uL Sodium 134 L (137-145) mmol/L Potassium 5.4 H (3.5-5.1) mmol/L Anion Gap (10.00-18.00) mmol/L BUN/Creatinine Ratio (12.00-20.00) Ratio Glucose 151 H (74-99) mg/dL Plasma Lactic Acid Jose Angel 2.4 H* (0.7-2.0) mmol/L Calcium (8.7-10.3) mg/dL Magnesium (1.5-2.4) mg/dL Total Bilirubin 3.0 H (0.2-1.3) mg/dL AST 124 H (17-59) U/L ALT 90 H (4-49) U/L Alkaline Phosphatase 152 H (38-126) U/L Total Protein (6.2-8.2) g/dL Albumin (3.8-4.9) g/dL Albumin/Globulin Ratio (1.60-3.17) g/dL Lipase 18 L (23-300) U/L Ur Specific Commiskey (1.001-1.035) Urine Glucose (UA) (Negative) 09/04/22 09/05/22 09/05/22 Range/Units 18:57 00:45 04:07 RBC 3.12 L (4.30-5.90) m/uL Hgb 10.7 L (13.0-17.0) g/dL Hct 32.8 L (39.6-50.0) % MCV 105.1 H (80.0-100.0) fL MCH 34.3 H (27.0-32.0) pg Neutrophils # 8.62 H (1.80-7.70) X 10*3/uL Lymphocytes # 0.52 L (1.0-4.8) k/uL Eosinophils # 0 L (0.04-0.35) X 10*3/uL Sodium (137-145) mmol/L Potassium (3.5-5.1) mmol/L Anion Gap (10.00-18.00) mmol/L BUN/Creatinine Ratio (12.00-20.00) Ratio Glucose (74-99) mg/dL Plasma Lactic Acid Jose Angel 2.3 H* (0.7-2.0) mmol/L Calcium (8.7-10.3) mg/dL Magnesium (1.5-2.4) mg/dL Total Bilirubin (0.2-1.3) mg/dL AST (17-59) U/L ALT (4-49) U/L Alkaline Phosphatase (38-126) U/L Total Protein (6.2-8.2) g/dL Albumin (3.8-4.9) g/dL Albumin/Globulin Ratio (1.60-3.17) g/dL Lipase (23-300) U/L Ur Specific [place] 1.037 H (1.001-1.035) Urine Glucose (UA) 1+ H (Negative) 09/05/22 Range/Units 04:07 RBC (4.30-5.90) m/uL Hgb (13.0-17.0) g/dL Hct (39.6-50.0) % MCV (80.0-100.0) fL MCH (27.0-32.0) pg Neutrophils # (1.80-7.70) X 10*3/uL Lymphocytes # (1.0-4.8) k/uL Eosinophils # (0.04-0.35) X 10*3/uL Sodium (137-145) mmol/L Potassium (3.5-5.1) mmol/L Anion Gap 9.90 L (10.00-18.00) mmol/L BUN/Creatinine Ratio 10.14 L (12.00-20.00) Ratio Glucose 158 H (74-99) mg/dL Plasma Lactic Acid Jose Angel (0.7-2.0) mmol/L Calcium 7.9 L (8.7-10.3) mg/dL Magnesium 1.2 L (1.5-2.4) mg/dL Total Bilirubin 2.30 H (0.2-1.3) mg/dL AST 52 H (17-59) U/L ALT 62 H (4-49) U/L Alkaline Phosphatase (38-126) U/L Total Protein 6.1 L (6.2-8.2) g/dL Albumin 3.6 L (3.8-4.9) g/dL Albumin/Globulin Ratio 1.44 L (1.60-3.17) g/dL Lipase (23-300) U/L Ur Specific [place] (1.001-1.035) Urine Glucose (UA) (Negative)
[2022-09-06] MEDS: HYDROmorphone 1 MG/ML 1 ML SYRINGE IVP PRN ×7 (02:42→21:57)
[2022-09-06] MEDS: SODIUM CHLORIDE 0.9% 1,000 ML IV SCH ×6 (03:16→15:18)
[2022-09-06] MEDS: PIPERACILLIN-TAZOBACTAM 3.375 GM in SODIUM CHLORIDE 0.9% 100 ML IVPB SCH ×3 (04:29→21:11)
[2022-09-06 06:51] LABS: Basophils % (A) 0 %; Eosinophils % (A) 0 %; HCT 28.1 % (39.0-53.0); Lymphocytes # (A) 0.9 k/uL (1.0-4.8); Lymphocytes % (A) 12 %; MCH 33.8 pg (25.0-35.0); MCHC 32.4 g/dL (31.0-37.0); MCV 104.2 fL (80.0-100.0); Macrocytosis Slight; Mean Platelet Volume 8.3; Monocytes # (A) 0.4 k/uL (0-1.0); Monocytes % (A) 6 %; Neutrophils # (A) 5.5 k/uL (1.3-7.7); Neutrophils % (A) 80 %; Platelet Count 143 k/uL (150-450); RDW 14.2 % (11.5-15.5); WBC 6.9 k/uL (3.8-10.6)
[2022-09-06 06:52] LABS: HGB 9.1 gm/dL (13.0-17.5)
[2022-09-06] MEDS: PANTOPRAZOLE 40 MG/10 ML VIAL IV SCH (08:14)
[2022-09-06] MEDS: metroNIDAZOLE-NS PMX 500 MG in SALINE 1 100ML.BAG IVPB SCH ×2 (08:39→15:13)
[2022-09-06] MEDS: allopurinoL 100 MG TAB PO SCH (08:40)
[2022-09-06] MEDS: CYCLOBENZAPRINE 5 MG TAB PO SCH ×3 (08:40→21:14)
[2022-09-06] MEDS: ENOXAPARIN 40 MG/0.4 ML SYRINGE SQ SCH (08:40)
[2022-09-06] MEDS: GABAPENTIN 300 MG CAP PO SCH ×2 (08:40→21:14)
[2022-09-06] MEDS: lisinopriL 20 MG TAB PO SCH (08:40)
--- NOTE | 2022-09-06 09:08 | US ---
EXAMINATION TYPE: US abdomen limited DATE OF EXAM: 09/06/2022 COMPARISON: NONE CLINICAL HISTORY: cirrhosis. pain exam limitations due to bowel gas and bandage from incision down mi ddle of abdomen. TECHNIQUE: Multiple sonographic images of the right upper quadrant are obtained. FINDINGS: EXAM MEASUREMENTS: Liver Length: 19.5 cm Gallbladder Wall: .3 cm CBD: .3 cm Right Kidney: 10.2 x 4.1 x 4.2 cm Pancreas: Obscured by bowel gas Liver: Increased attenuation Gallbladder: Stones visualized Evidence for sonographic Almanza's sign: no CBD: wnl Right Kidney: No hydronephrosis or masses seen IMPRESSION: 1. Contracted gallbladder with a single small gallstone. 2. Limited evaluation of pancreas. 3. Liver grossly normal.
[2022-09-06 09:59] LABS: Magnesium 1.5 mg/dL (1.5-2.4)
[2022-09-06 10:15] LABS: Hepatitis B Surface AB- Quant 3.5 mIU/mL; Hepatitis B Surface Antibody Nonreactive (Nonreactive)
[2022-09-06 10:28] LABS: Hepatitis B Surface Antigen Nonreactive (Nonreactive)
[2022-09-06 10:45] LABS: African American GFR (CKD) 96.8 (60.0-200.0); Anion Gap 8.4 mmol/L (10.00-18.00); BUN/Creat Ratio 13.91 Ratio (12.00-20.00); Blood Urea Nitrogen 15.3 mg/dL (9.0-27.0); Calcium 7.4 mg/dL (8.7-10.3); Carbon Dioxide 23.6 mmol/L (20.0-27.5); Non-African American GFR(CKD) 83.5 (60.0-200.0); Phosphorus 2.7 mg/dL (2.4-5.1); Potassium 3.7 mmol/L (3.5-5.5)
[2022-09-06] MEDS ORDERED: MAGNESIUM OXIDE 400 MG TAB PO STA (15:00)
--- NOTE | 2022-09-06 15:14 | P.PN ---
Subjective Progress Note Date: 09/06/22 Principal diagnosis: Microperforation of sigmoid colon S/P Colonoscopy 09/03 ([facility]) 41 M who underwent colonoscopy on 09/03 at [facility] as part of an ongoing work up for electrolyte dyscrasia, joint pain & diarrhea. Underwent hot snare polypectomy at the time of colonoscopy. Yesterday on drive home felt cramping diffuse abdominal pain, which increased in severity this morning. Hasn't eaten since prior to colonoscopy prep; had a bit of water this morning. Passing clear liquid stools. Associated nausea. Pain progressively got worse throughout the day & came to ER to get evaluated. CT was concerning for foci of free air along sigmoid colon. ER physician was in touch with endoscopist at [facility]; suspected post polypectomy syndrome. On ride to hospital, bumps in road worsened pain. Dilaudid helped briefly with pain. Taken to OR for diagnostic laparoscopy, succus noted in the pelvis & converted to open. Small pin point perforation with liquid stool spillage noted. Perforation was tiny & oversewn. Liver was noted to be extensively nodular & cirrhotic appearing. US completed yesterday; limited due to surgical dressings. Continues to feel better every day. OOB to chair yesterday; has not walked yet. Pain appears better controlled. Bishop out yesterday & urinating. Feels like he may have a BM today. Eager to have more water, maybe try clears. NGT with minimal output. Objective - Vital Signs Vital signs: Vital Signs Temp 99.2 F 09/06/22 06:49 Pulse 74 09/06/22 06:49 Resp 18 09/06/22 06:49 BP 133/84 09/06/22 06:49 Pulse Ox 95 09/06/22 06:49 FiO2 Intake & Output 09/05/22 09/06/22 09/06/22 18:59 06:59 18:59 Intake Total 100 Output Total 950 625 Balance -850 -625 Intake: Intake, IV Titration 100 Amount Piperacillin-Tazobactam 3 100 .375 gm In Sodium Chloride 0.9% 100 ml @ 25 mls/hr IVPB Q8H COUNTS INCLUDE 234 BEDS AT THE [facility] Rx#: [id number] Output: Urine 950 625 Other: Voiding Method Indwelling Catheter - Constitutional General appearance: Present: cooperative, no acute distress - EENT Eyes: Absent: scleral icterus - Respiratory Respiratory: bilateral: CTA - Cardiovascular Rhythm: regular - Gastrointestinal Gastrointestinal Comment(s): Active bowel sounds; appropriate post-operative/susannah-incisional abdominal pain. Incision with elisabeth; healing, no s/s infection. General gastrointestinal: Present: normal bowel sounds, soft. Absent: distended - Labs CBC & Chem 7: 09/06/22 05:28 09/06/22 05:28 Labs: Abnormal Lab Results - Last 24 Hours (Table) 09/05/22 09/06/22 Range/Units 04:07 05:28 RBC 3.12 L 2.70 L (4.40-5.60) X 10*6/uL Hgb 10.7 L 9.1 L D (13.0-17.0) g/dL Hct 32.8 L 28.1 L (39.6-50.0) % MCV 105.1 H 104.2 H (80.0-97.0) fL MCH 34.3 H (27.0-32.0) pg Plt Count 143 L (150-450) k/uL Neutrophils # 8.62 H (1.80-7.70) X 10*3/uL Lymphocytes # 0.52 L 0.9 L (0.90-5.00) X 10*3/uL Eosinophils # 0 L (0.04-0.35) X 10*3/uL Microbiology - Last 24 Hours (Table) 09/04/22 15:31 Blood Culture - Preliminary Blood No Growth after 24 hours - Imaging and Cardiology US - abdomen: report reviewed Assessment and Plan Assessment: Abdominal pain with signs of peritonitis Foci of pneumoperitoneum on CT S/P colonoscopy with polypectomy 09/03 ([facility]) S/P diagnostic laparoscopy converted to open laparotomy with oversew of pinpoint perforation 09/04 Plan: Will remove NGT. OK to start clear liquids. OK to saline/hep lock IVF once tolerating PO. AM labs ordered. Magnesium supplementation. Discussion regarding importance of ambulating & getting out of bed; PT consulted. Dressing removed; incision can stay open to air unless irritating against gown, then dressing can be place. Appreciate medical consultation & input. Time with Patient: Less than 30
--- NOTE | 2022-09-06 19:49 | P.OP ---
Date of Procedure: 09/04/22 Preoperative Diagnosis: Abdominal pain with signs of peritonitis Focal pneumoperitoneum on CT S/P Colonoscopy 09/03 ([facility]) Postoperative Diagnosis: Pin point perforation of sigmoid colon with spillage of stool Procedure(s) Performed: Diagnostic laparoscopy, converted to laparotomy with oversew of pinpoint perforation of sigmoid colon Anesthesia: JOSE Surgeon: Sylwia Sapp [employer] Developer #1: Beth Frost Estimated Blood Loss (ml): 25 Pathology: none sent Condition: stable Disposition: PACU Indications for Procedure: Was seen & evaluated in the ED. Underwent colonoscopy with hot snare polypectomy the day prior. Worsening abdominal pain since the procedure, which prompted the ED visit. CT concerning for microperforation. Clinically, patient showed signs of peritonitis. Surgery was discussed with patient & his significant other, along with risks & benefits. Questions encouraged & answered. Wished to proceed with surgery. Operative Findings: Diagnostic laparoscopy converted to laparotomy when succus was noted within the pelvis. Laparotomy was performed and small pin point perforation in the sigmoid colon was found with liquid stool leaking into abdominal cavity. Remainder of colon was pink & healthy; tissue around pin point perforation healthy. Small microperforation was oversewn & omtentum placed over the top. Description of Procedure: Brent was taken to the operative suite where he was placed in a supine position. General anesthesia was administered by the anesthesia team; his heart rate, blood pressure & pulse oximetry was monitored throughout the entire case. Standard timeout was taken & appropriate SCIP antibiotics were administered. Abdomen was prepped & draped in standard sterile fashion. An infraumbilical incision was made & dissected down to level of anterior abdominal fascia. Entrance into abdominal cavity was gained using the open modified Dolly technique. A 12 mm port was placed under direct supervision and abdomen was insufflated without issues. On inspection, there was no injury noted from initial trochar placement. On inspection of the abdomen, succus was immediately encountered within the pelvis. At this time the decision was made to convert to open. Midline incision was made & carried down through the subcutaneous tissue with electrocautery. Anterior abdominal wall was excised & entrance was made into the abdominal cavity. Incision was opened superiorly & inferiorly. Abdomen was irrigated & colon was inspected. The pinpoint perforation was noted. The left colon was mobilized using a combination of blunt & sharp dissection. Remainder of left colon appeared pink & healthy, no obvious pathology. Transverse & right colon were inspected & without pathology. Liver was palpated & noted to be extensively nodular & cirrhotic appearing; no pola masses palpated. Small bowel was run from Ligament of Treitz to terminal ileum; intact without pathology. Pinpoint perforation was so tiny with surrounding healthy colonic tissue, it was oversewn. Area of colon was manually stressed and no further spillage noted. The anterior stomach was evaluated and no pathology was noted. Abdomen was once again irrigated with copious amounts of sterile saline. On re-evaluation, no further spillage was appreciated. Area had a little inflammatory oozing noted so surgicell was placed. Adequate hemostasis was achieved. Midline fascia was closed using running bidirectional 1 PDS. Midline wound was irrigated & deep subcutaneous layer as well as dermal layer was closed using interrupted 2-0 PDS. Skin was closed with elisabeth & sterile dressing applied. Counts were reported to be correct. Tolerated procedure well & was extubated without incident. Was transferred from operating room to PACU in stable condition.
[2022-09-06] MEDS: KETOROLAC 15 MG/ML 1 ML VIAL IVP PRN (20:05)
--- NOTE | 2022-09-06 20:56 | P.PN ---
Progress Note - Text Progress Note Date: 09/06/22 - Chief Complaint Abdominal pain - History of Present Illness This is a pleasant 41-year-old patient who is from out of town. Chronic stable medical conditions include gout, hypertension, anxiety and chronic pain for which he takes Neurontin. Patient yesterday underwent colonoscopy in [facility], [place]. Polyp was removed.. Following that patient drove up to [place] on with his girlfriend. Yesterday evening started having increasing abdominal pain. Started becoming uncomfortable. Nausea. Decided to come to the ER. Computed tomography scan the ER showed limited pneumoperitoneum. Single surgical clip was noted in the mid sigmoid colon. Fat stranding and wall thickening involving the sigmoid colon was also noted. underwent laparotomy with oversew of the pinpoint perforation by . She did notice some spillage of stool in the abdomen. Today patient has NG tube to suction. Having abdominal pain. No flatus. On IV Zosyn. Patient is also noted to have a cirrhotic liver. 09/06/2022: NG tube discontinued. Started on clear liquids. Minimal flatus. Results of ultrasound liver discussed. Patient did confirm that he drank heavily for 3-4 years. Not prior to that. Following his divorce. He will follow-up with a biologist in [place]. Abdominal pain. On IV Zosyn and Flagyl. Active Medications Allopurinol (Allopurinol 100 Mg Tab) 200 mg PO DAILY [facility] Last Admin: 09/06/22 08:40 Dose: 200 mg Benzocaine (Benzocaine [place] 1 Can) 1 spray MUCOUS MEM QID PRN; Protocol PRN Reason: Mouth Irritation Last Admin: 09/05/22 20:08 Dose: 1 spray Cyclobenzaprine HCl (Cyclobenzaprine 5 Mg Tab) 5 mg PO TID [facility] Last Admin: 09/06/22 15:13 Dose: 5 mg Enoxaparin Sodium (Enoxaparin 40 Mg/0.4 Ml Syringe) 40 mg SQ DAILY [facility] Last Admin: 09/06/22 08:40 Dose: 40 mg Gabapentin (Gabapentin 300 Mg Cap) 300 mg PO BID [facility] Last Admin: 09/06/22 08:40 Dose: 300 mg Hydromorphone HCl (Hydromorphone 1 Mg/Ml 1 Ml Syringe) 1 mg IVP Q3HR PRN PRN Reason: Severe Pain (Scale 7 to 10) Last Admin: 09/06/22 17:54 Dose: 1 mg Piperacillin Sod/Tazobactam (Sod 3.375 gm/ Sodium Chloride) 100 mls @ 25 mls/hr IVPB Q8H [facility]; Protocol Last Admin: 09/06/22 11:30 Dose: 25 mls/hr Sodium Chloride (Saline 0.9%) 1,000 mls @ 130 mls/hr IV .[id number] [facility] Last Admin: 09/06/22 15:18 Dose: 130 mls/hr Metronidazole 500 mg/ IV (Solution) 100 mls @ 100 mls/hr IVPB Q8HR [facility]; Protoc ol Last Admin: 09/06/22 15:13 Dose: 100 mls/hr Ketorolac Tromethamine (Ketorolac 15 Mg/Ml 1 Ml Vial) 15 mg IVP Q8HR PRN PRN Reason: mild pain Stop: 09/09/22 19:49 Last Admin: 09/06/22 20:05 Dose: 15 mg Lisinopril (Lisinopril 20 Mg Tab) 20 mg PO DAILY [facility] Last Admin: 09/06/22 08:40 Dose: 20 mg Naloxone HCl (Naloxone 0.4 Mg/Ml 1 Ml Vial) 0.2 mg IV Q2M PRN PRN Reason: Opioid Reversal Ondansetron HCl (Ondansetron 4 Mg/2 Ml Vial) 4 mg IVP Q8HR PRN PRN Reason: Nausea And Vomiting Last Admin: 09/04/22 19:46 Dose: 4 mg Pantoprazole Sodium (Pantoprazole 40 Mg/10 Ml Vial) 40 mg IV DAILY [facility] Last Admin: 09/06/22 08:14 Dose: 40 mg Past medical history to include: Hypertension, gout, chronic pain Social history: Works at [employer]. Alcohol rarely. Smoking. Does use marijuana Physical examination: VITAL SIGNS: 97.9, 92, 18, 1 26 x 80, 94% room air GENERAL: in bed uncomfortable. EYES: Pupils equal. Conjunctiva normal. HEENT: External appearance of nose and ears normal, oral cavity grossly normal. NG tube discontinued NECK: JVD not raised; masses not palpable. HEART: First and second heart sounds are normal; no edema. LUNGS: Respiratory rate normal; clear to auscultation. ABDOMEN: Soft, tender, no guarding rigidity, dressing over the midline incision, liver spleen not palpable, no masses palpable. PSYCH: Alert and oriented x3; mood and affect anxiousl. INVESTIGATIONS, reviewed in the clinical context: Liver ultrasound: Contracted gallbladder with single small gallstone. Liver grossly normal reported. 09/06/2022: White count 6.9 hemoglobin 9.1 platelets 143 progression 3.7 creatinine 1.1 Hepatitis B surface antigen/hepatitis B surface antibody/hepatitis B core total antibody: Nonreactive White count 6.5 hemoglobin 13.4 platelets 174 sodium 134 potassium 5.4 creatinine 1.19 Lactic acid 2.4 AST 124 ALT 90 Influenza type A/type B/RSV/COVID-19: Not detected EKG tracing personally reviewed by me-normal sinus rhythm Assessment and plan: -Acute microperforation of the colon following removal of large polyp at an outside facility.oversew of the microperforation. Surgeon:Dr Church. Started on clear liquid diet. -Secondary peritonitis secondary to stool overspill IV Zosyn. IV Flagyl. -Cirrhosis discovered during surgery Abdominal ultrasound nonspecific.. Ferritin. Results discussed with the patient. He'll follow-up with a biologist [place] upon return. -Chronic gout Allopurinol -Essential hypertension Zestril -Chronic pain Neurontin Discussed with patient IV fluids. IV Zosyn. IV Flagyl. NG tube discontinued. Thank you
[2022-09-06] MEDS ORDERED: ACETAMINOPHEN TAB 500 MG TAB PO STA (22:37)
[2022-09-07] MEDS: metroNIDAZOLE-NS PMX 500 MG in SALINE 1 100ML.BAG IVPB SCH ×4 (00:01→23:11)
[2022-09-07] MEDS: HYDROmorphone 1 MG/ML 1 ML SYRINGE IVP PRN ×7 (01:08→22:30)
[2022-09-07] MEDS: PIPERACILLIN-TAZOBACTAM 3.375 GM in SODIUM CHLORIDE 0.9% 100 ML IVPB SCH ×3 (04:02→19:56)
[2022-09-07] MEDS: SODIUM CHLORIDE 0.9% 1,000 ML IV SCH ×3 (04:03→16:50)
[2022-09-07] MEDS: KETOROLAC 15 MG/ML 1 ML VIAL IVP PRN ×4 (04:03→23:10)
[2022-09-07 05:22] LABS: Ionized Calcium 4.3 mg/dL (4.5-5.3)
[2022-09-07] MEDS: CYCLOBENZAPRINE 5 MG TAB PO SCH ×3 (08:50→21:37)
[2022-09-07] MEDS: allopurinoL 100 MG TAB PO SCH (08:50)
[2022-09-07] MEDS: GABAPENTIN 300 MG CAP PO SCH ×2 (08:50→21:37)
[2022-09-07] MEDS: lisinopriL 20 MG TAB PO SCH (08:50)
[2022-09-07 08:51] LABS: HCT 33.8 % (39.6-50.0); HGB 10.5 g/dL (13.0-17.0); MCHC 31.1 g/dL (32.0-37.0); MCV 109.4 fL (80.0-97.0); Mean Platelet Volume 10.8 fL (9.5-12.2); NRBC Per 100 WBC 0 /100 WBCS (0.0-0.0); Platelet Count 162 X 10*3/uL (140-440); RBC 3.09 X 10*6/uL (4.40-5.60); RDW 14.1 % (11.5-14.5); WBC 7.32 X 10*3/uL (4.50-10.00)
[2022-09-07] MEDS: PANTOPRAZOLE 40 MG/10 ML VIAL IV SCH (08:51)
[2022-09-07] MEDS: ENOXAPARIN 40 MG/0.4 ML SYRINGE SQ SCH (08:53)
[2022-09-07 08:59] LABS: African American GFR (CKD) 84.6 (60.0-200.0); Anion Gap 13.3 mmol/L (10.00-18.00); BUN/Creat Ratio 10.98 Ratio (12.00-20.00); Blood Urea Nitrogen 13.5 mg/dL (9.0-27.0); Calcium 7.3 mg/dL (8.7-10.3); Carbon Dioxide 19.9 mmol/L (20.0-27.5); Magnesium 1.4 mg/dL (1.5-2.4); Phosphorus 2.7 mg/dL (2.4-5.1); Potassium 3.6 mmol/L (3.5-5.5)
--- NOTE | 2022-09-07 09:01 | XR ---
EXAMINATION TYPE: XR chest 2V DATE OF EXAM: 09/07/2022 COMPARISON: None HISTORY: Rule out pneumonia TECHNIQUE: Frontal and lateral views of the chest are obtained. FINDINGS: The heart is not enlarged and there is no pulmonary vascular congestion. There is a patchy airspace opacity in the right lower lobe. Bandlike opacity in the left lung likely atelectasis or sc ar. No pneumothorax. No free intraperitoneal air. Left shoulder prosthesis, degenerative changes of t he right shoulder and spine, but no acute osseous abnormality. IMPRESSION: Right lower lobe pneumonia.
[2022-09-07] MEDS: CALCIUM CARB-VIT D 500 MG-5 MCG TAB PO SCH ×2 (11:42→18:03)
[2022-09-07] MEDS: MAGNESIUM OXIDE 400 MG TAB PO SCH ×2 (11:42→21:37)
[2022-09-07 12:22] LABS: Appearance,Urine Clear (Clear); Bilirubin,Urine Negative (Negative); Blood,Urine Negative (Negative); Color,Urine Yellow; Glucose,Urine (UA) Negative (Negative); Ketones,Urine Trace (Negative); Leukocyte Esterase,Urine Small (Negative); Nitrite,Urine Negative (Negative); Protein,Urine 1+ (Negative); RBC,Urine <1 /hpf (0-5); Specific Gravity,Urine 1.024 (1.001-1.035); Urobilinogen,Urine <2.0 mg/dL (<2.0); WBC,Urine 1 /hpf (0-5)
--- NOTE | 2022-09-07 12:30 | P.PN ---
Subjective Progress Note Date: 09/07/22 Principal diagnosis: Microperforation of sigmoid colon S/P Colonoscopy 09/03 ([facility]) 41 M who underwent colonoscopy on 09/03 at [facility] as part of an ongoing work up for electrolyte dyscrasia, joint pain & diarrhea. Underwent hot snare polypectomy at the time of colonoscopy. Yesterday on drive home felt cramping diffuse abdominal pain, which increased in severity this morning. Hasn't eaten since prior to colonoscopy prep; had a bit of water this morning. Passing clear liquid stools. Associated nausea. Pain progressively got worse throughout the day & came to ER to get evaluated. CT was concerning for foci of free air along sigmoid colon. ER physician was in touch with endoscopist at [facility]; suspected post polypectomy syndrome. On ride to hospital, bumps in road worsened pain. Dilaudid helped briefly with pain. Taken to OR for diagnostic laparoscopy, succus noted in the pelvis & converted to open. Small pin point perforation with liquid stool spillage noted. Perforation was tiny & oversewn. Liver was noted to be extensively nodular & cirrhotic appearing. Continues to not want to get out of bed. Not working with IS. Fevers overnight; CXR obtained. Appears to be developing pneumonia. Incisional pain control continues to be an issue. Objective - Vital Signs Vital signs: Vital Signs Temp 100.6 F H 09/07/22 08:22 Pulse 94 09/07/22 07:27 Resp 17 09/07/22 07:27 BP 149/97 09/07/22 07:27 Pulse Ox 91 L 09/07/22 07:27 FiO2 Intake & Output 09/06/22 09/07/22 09/07/22 18:59 06:59 18:59 Output Total 800 Balance -800 Output: Urine 800 Other: Voiding Method Toilet # Voids 1 # Bowel Movements 1 - Constitutional General appearance: Present: no acute distress - EENT Eyes: Present: anicteric sclerae, poor dentition - Respiratory Respiratory: bilateral: CTA - Cardiovascular Rhythm: regular - Gastrointestinal Gastrointestinal Comment(s): Tenderness to palpation, mostly along midline incision. No signs of peritonitis. General gastrointestinal: Present: normal bowel sounds, soft. Absent: distended - Neurologic Neurologic Comment(s): No gross deficits. - Labs CBC & Chem 7: 09/07/22 03:38 09/07/22 03:38 Labs: Abnormal Lab Results - Last 24 Hours (Table) 09/06/22 09/07/22 09/07/22 Range/Units 05:28 03:38 03:38 RBC 3.09 L (4.40-5.60) X 10*6/uL Hgb 10.5 L (13.0-17.0) g/dL Hct 33.8 L (39.6-50.0) % MCV 109.4 H (80.0-97.0) fL MCH 34.0 H (27.0-32.0) pg MCHC 31.1 L (32.0-37.0) g/dL Carbon Dioxide 19.9 L (20.0-27.5) mmol/L Anion Gap 8.40 L (10.00-18.00) mmol/L BUN/Creatinine Ratio 10.98 L (12.00-20.00) Ratio Calcium 7.4 L 7.3 L (8.7-10.3) mg/dL Ionized Calcium Harleen 4.3 L (4.5-5.3) mg/dL Magnesium 1.4 L (1.5-2.4) mg/dL Ferritin 851.0 H (22.0-322.0) ng/mL Microbiology - Last 24 Hours (Table) 09/04/22 15:31 Blood Culture - Preliminary Blood No Growth after 48 hours - Imaging and Cardiology Chest x-ray: report reviewed, image reviewed Assessment and Plan Assessment: Abdominal pain with signs of peritonitis Foci of pneumoperitoneum on CT S/P colonoscopy with polypectomy 09/03 ([facility]) S/P diagnostic laparoscopy converted to open laparotomy with oversew of pinpoint perforation 09/04 Right pneumonia, new Plan: Continue clears for now. OK to saline/hep lock IVF once tolerating PO. AM labs ordered. Magnesium & calcium supplementation ordered. Discussion regarding importance of ambulating & getting out of bed; PT consulted. UA, Sputum Cx ordered 2/2 fevers, new signs of PNA on CXR. On zosyn, flagyl. Regimented pain schedule. If no improvement over next 24-48 hours, will repeat CT abdomen. Appreciate medical consultation & input. Time with Patient: Less than 30
--- NOTE | 2022-09-07 18:16 | P.PN ---
Progress Note - Text Progress Note Date: 09/07/22 - Chief Complaint Abdominal pain Hospital course This is a pleasant 41-year-old patient who is from out of town. Chronic stable medical conditions include gout, hypertension, anxiety and chronic pain for which he takes Neurontin. Patient yesterday underwent colonoscopy in [facility]. Polyp was removed.. Following that patient drove up to [place] on with his girlfriend. Yesterday evening started having increasing abdominal pain. Started becoming uncomfortable. Nausea. Decided to come to the ER. Computed tomography scan the ER showed limited pneumoperitoneum. Single surgical clip was noted in the mid sigmoid colon. Fat stranding and wall thickening involving the sigmoid colon was also noted. underwent laparotomy with oversew of the pinpoint perforation by . She did notice some spillage of stool in the abdomen. Today patient has NG tube to suction. Having abdominal pain. No flatus. On IV Zosyn. Patient is also noted to have a cirrhotic liver. 09/06/2022: NG tube discontinued. Started on clear liquids. Minimal flatus. Results of ultrasound liver discussed. Patient did confirm that he drank heavily for 3-4 years. Not prior to that. Following his divorce. He will follow-up with a squeegee finisher in [place]. Abdominal pain. On IV Zosyn and Flagyl. September 07: had some loose BM. NG tube discontinued. Started on clear liquids. Asked sit up in a chair. Abdominal pain. Having low-grade fever. On IV Zosyn and Flagyl. Active Medications Allopurinol (Allopurinol 100 Mg Tab) 200 mg PO DAILY [facility] Last Admin: 09/07/22 08:50 Dose: 200 mg Benzocaine (Benzocaine [place] 1 Can) 1 spray MUCOUS MEM QID PRN; Protocol PRN Reason: Mouth Irritation Last Admin: 09/05/22 20:08 Dose: 1 spray Cyclobenzaprine HCl (Cyclobenzaprine 5 Mg Tab) 5 mg PO TID [facility] Last Admin: 09/07/22 16:54 Dose: 5 mg Enoxaparin Sodium (Enoxaparin 40 Mg/0.4 Ml Syringe) 40 mg SQ DAILY [facility] Last Admin: 09/07/22 08:53 Dose: 40 mg Gabapentin (Gabapentin 300 Mg Cap) 300 mg PO BID [facility] Last Admin: 09/07/22 08:50 Dose: 300 mg Hydromorphone HCl (Hydromorphone 1 Mg/Ml 1 Ml Syringe) 1 mg IVP Q3HR PRN PRN Reason: Severe Pain (Scale 7 to 10) Last Admin: 09/07/22 16:49 Dose: 1 mg Piperacillin Sod/Tazobactam (Sod 3.375 gm/ Sodium Chloride) 100 mls @ 25 mls/hr IVPB Q8H [facility]; Protocol Last Admin: 09/07/22 13:24 Dose: 25 mls/hr Sodium Chloride (Saline 0.9%) 1,000 mls @ 130 mls/hr IV .Q7H42M [facility] Last Admin: 09/07/22 16:50 Dose: 130 mls/hr Metronidazole 500 mg/ IV (Solution) 100 mls @ 100 mls/hr IVPB Q8HR [facility]; Protocol Last Admin: 09/07/22 18:04 Dose: 100 mls/hr Ketorolac Tromethamine (Ketorolac 15 Mg/Ml 1 Ml Vial) 15 mg IVP Q6HR PRN PRN Reason: mild pain Stop: 09/11/22 19:47 Last Admin: 09/07/22 18:05 Dose: 15 mg Lisinopril (Lisinopril 20 Mg Tab) 20 mg PO DAILY [facility] Last Admin: 09/07/22 08:50 Dose: 20 mg Magnesium Oxide (Magnesium Oxide 400 Mg Tab) 400 mg PO BID [facility] Last Admin: 09/07/22 11:42 Dose: 400 mg Naloxone HCl (Naloxone 0.4 Mg/Ml 1 Ml Vial) 0.2 mg IV Q2M PRN PRN Reason: Opioid Reversal Ondansetron HCl (Ondansetron 4 Mg/2 Ml Vial) 4 mg IVP Q8HR PRN PRN Reason: Nausea And Vomiting Last Admin: 09/04/22 19:46 Dose: 4 mg Pantoprazole Sodium (Pantoprazole 40 Mg/10 Ml Vial) 40 mg IV DAILY [facility] Last Admin: 09/07/22 08:51 Dose: 40 mg Past medical history to include: Hypertension, gout, chronic pain Social history: Works at [employer]. Alcohol rarely. Smoking. Does use marijuana Physical examination: VITAL SIGNS: 100.8, 94, 17, 149/97, 91% room air GENERAL: in bed EYES: Pupils equal. Conjunctiva normal. HEENT: External appearance of nose and ears normal, oral cavity grossly normal. NG tube discontinued NECK: JVD not raised; masses not palpable. HEART: First and second heart sounds are normal; no edema. LUNGS: Respiratory rate normal; clear to auscultation. ABDOMEN: Soft, tender, no guarding rigidity, dressing over the midline incision, liver spleen not palpable, no masses palpable. PSYCH: Alert and oriented x3; mood and affect anxiousl. INVESTIGATIONS, reviewed in the clinical context: September 07: White count 7.3 hemoglobin 10.5 potassium 3.6 creatinine 1.2 magnesium 1.4 Liver ultrasound: Contracted gallbladder with single small gallstone. Liver grossly normal reported. 09/06/2022: White count 6.9 hemoglobin 9.1 platelets 143 progression 3.7 creatinine 1.1 Hepatitis B surface antigen/hepatitis B surface antibody/hepatitis B core total antibody: Nonreactive White count 6.5 hemoglobin 13.4 platelets 174 sodium 134 potassium 5.4 creatinine 1.19 Lactic acid 2.4 AST 124 ALT 90 Influenza type A/type B/RSV/COVID-19: Not detected EKG tracing personally reviewed by me-normal sinus rhythm Assessment and plan: -Acute microperforation of the colon following removal of large polyp at an outside facility.oversew of the microperforation. Surgeon:Dr Church. clear liquid diet. -Secondary peritonitis secondary to stool overspill, having low-grade fever: Slow to respond IV Zosyn. IV Flagyl. -Cirrhosis discovered during surgery Abdominal ultrasound nonspecific.. Results discussed with the patient. He'll follow-up with a squeegee finisher in [place] upon return. -Chronic gout Allopurinol -Essential hypertension Zestril -Chronic pain Neurontin -Hypoalbuminemia Replace IV fluids. IV Zosyn. IV Flagyl. Clear liquids
[2022-09-08] MEDS: metroNIDAZOLE-NS PMX 500 MG in SALINE 1 100ML.BAG IVPB SCH ×3 (00:37→15:04)
[2022-09-08 01:16] LABS: Appearance,Urine Clear (Clear); Bilirubin,Urine Negative (Negative); Blood,Urine Negative (Negative); Color,Urine Yellow; Glucose,Urine (UA) Negative (Negative); Ketones,Urine Trace (Negative); Leukocyte Esterase,Urine Trace (Negative); Mucus,Urine Rare /hpf; Nitrite,Urine Negative (Negative); Protein,Urine 1+ (Negative); RBC,Urine <1 /hpf (0-5); Specific Gravity,Urine 1.022 (1.001-1.035); Squamous Epithelial Cell,Urine <1 /hpf (0-4); Urobilinogen,Urine <2.0 mg/dL (<2.0); WBC,Urine 1 /hpf (0-5)
[2022-09-08] MEDS: HYDROmorphone 1 MG/ML 1 ML SYRINGE IVP PRN ×7 (01:27→21:11)
[2022-09-08] MEDS: SODIUM CHLORIDE 0.9% 1,000 ML IV SCH ×3 (02:33→16:48)
[2022-09-08] MEDS: KETOROLAC 15 MG/ML 1 ML VIAL IVP PRN ×4 (04:18→22:47)
[2022-09-08] MEDS: PIPERACILLIN-TAZOBACTAM 3.375 GM in SODIUM CHLORIDE 0.9% 100 ML IVPB SCH ×3 (04:19→21:11)
[2022-09-08] MEDS ORDERED: DEXTROSE 5% IVPB STA ×2 (08:27)
[2022-09-08] MEDS ORDERED: MAGNESIUM SULFATE IVPB STA ×2 (08:27)
[2022-09-08] MEDS ORDERED: WATER IVPB STA ×2 (08:27)
[2022-09-08] MEDS: GABAPENTIN 300 MG CAP PO SCH ×2 (08:37→21:11)
[2022-09-08] MEDS: CYCLOBENZAPRINE 5 MG TAB PO SCH ×3 (08:37→21:11)
[2022-09-08] MEDS: lisinopriL 20 MG TAB PO SCH (08:37)
[2022-09-08] MEDS: MAGNESIUM OXIDE 400 MG TAB PO SCH ×2 (08:37→21:11)
[2022-09-08] MEDS: allopurinoL 100 MG TAB PO SCH (08:37)
[2022-09-08] MEDS: ENOXAPARIN 40 MG/0.4 ML SYRINGE SQ SCH (08:37)
[2022-09-08] MEDS: traMADol 50 MG TAB PO PRN ×2 (08:52→15:04)
[2022-09-08] MEDS: PANTOPRAZOLE 40 MG/10 ML VIAL IV SCH (08:53)
[2022-09-08] MEDS ORDERED: traMADol 50 MG TAB PO SCH (09:00)
--- NOTE | 2022-09-08 09:06 | XR ---
EXAMINATION TYPE: XR chest 2V DATE OF EXAM: 09/08/2022 COMPARISON: 09/07/2022 HISTORY: Iatrogenic pneumoperitoneum, fever TECHNIQUE: Frontal and lateral views of the chest are obtained. FINDINGS: There is no focal air space opacity, pleural effusion, or pneumothorax seen. The cardiac silhouette size is within normal limits left shoulder arthroplasty. No acute osseous abnormalities. N o pneumoperitoneum visualized. IMPRESSION: No acute cardiopulmonary process.
[2022-09-08 10:21] LABS: Magnesium 1.3 mg/dL (1.5-2.4); Phosphorus 2.5 mg/dL (2.4-5.1)
[2022-09-08] MEDS: MAGNESIUM SULFATE-D5W PMX 1 GM in DEXTROSE/WATER 1 100ML.BAG IVPB SCH ×2 (10:33→11:58)
--- NOTE | 2022-09-08 10:47 | CT ---
EXAMINATION TYPE: CT abdomen pelvis w con DATE OF EXAM: 09/08/2022 COMPARISON: 09/04/2022 HISTORY: febrile, r/o colon leak CT DLP: combined dlp 2430.8 mGycm CONTRAST: CT scan of the abdomen and pelvis is performed without Oral Contrast and with IV Contrast, patient in jected with 100 cc mL of Isovue 370. FINDINGS: LUNG BASES-: There are small bilateral pleural effusions and compressive atelectasis. LIVER/GB: Small gallstone is identified. No space occupying hepatic lesion. Biliary tree is of nor mal caliber. PANCREAS: No inflammation. No distinct mass. SPLEEN: No splenic enlargement. No lesion seen. ADRENALS: No nodule. No thickening. KIDNEYS/BLADDER: No hydronephrosis. No nephrolithiasis. No distinct renal mass. Urinary bladder g rossly unremarkable. BOWEL: Midline skin elisabeth noted. Small amount of free air within the low abdomen at the level of th e urinary bladder and just superior to this level. There is mild distention and wall thickening of th e colon particularly at the distal transverse colon and descending colon may reflect ileus. There is free fluid noted adjacent to the liver and spleen as well as within the pelvis. Fluid collection with in the right lower quadrant measures 6.7 x 5.7 cm and does not appear to reflect an abscess at this t desiree. I cannot exclude leak. Small bowel appears normal caliber. GENITAL ORGANS: No gross abnormality. LYMPH NODES: No greater than 1cm abdominal or pelvic lymph nodes are appreciated. AORTA: No significant abnormality. OSSEOUS STRUCTURES: Bilateral hip prostheses resulting in pelvic streak artifact limiting portions of the study. OTHER: No significant additional abnormality is seen. IMPRESSION: 1. Small amount of free air within the pelvis and just superior to this level could be postoperative in nature however I cannot exclude a bowel leak. There is evidence of ascites since prior examination with more confluence component right lower quadrant however abscess is not believed to be present. A s noted above I cannot exclude leak at this time. Correlate for large bowel ileus.
[2022-09-08 10:50] LABS: African American GFR (CKD) 108.6 (60.0-200.0); Anion Gap 11.9 mmol/L (10.00-18.00); BUN/Creat Ratio 9.4 Ratio (12.00-20.00); Blood Urea Nitrogen 9.4 mg/dL (9.0-27.0); Calcium 6.9 mg/dL (8.7-10.3); Carbon Dioxide 17.1 mmol/L (20.0-27.5); Non-African American GFR(CKD) 93.7 (60.0-200.0); Potassium 2.7 mmol/L (3.5-5.5)
--- NOTE | 2022-09-08 11:13 | CT ---
EXAMINATION TYPE: CT angio chest DATE OF EXAM: 09/08/2022 COMPARISON: None HISTORY: febrile, r/o pneumonia CT DLP: combined dlp 2430.8 mGycm CONTRAST: CT chest with contrast and 3D reconstruction with MIP imaging is performed with IV Contrast, patient injected with 100 cc mL of Isovue 370. Contrast-enhanced CT of the chest was performed through the course of the pulmonary arteries with nasreen g and mediastinal window settings submitted. 3D reconstruction with MIP imaging was also performed. PULMONARY ARTERIES: The pulmonary arteries and their major tributaries are patent. I do not see matthias dence for sizable filling defect to suggest pulmonary embolic process. LUNGS: Small bilateral pleural effusions with compressive atelectasis seen at the lung bases. The nasreen gs are otherwise clear. MEDIASTINUM: Thoracic aorta is of normal caliber,however, evaluation is limited given timing of the contrast bolus. If there is concern for thoracic aortic pathology consider MUKUL. Correlate clinicall y . The heart is not enlarged. No evidence for mediastinal mass. No mediastinal lymph nodes greater than 1cm. HILAR STRUCTURES: No evidence for mass. No hilar lymph nodes greater than 1 cm. UPPER ABDOMEN: No significant abnormality is seen. IMPRESSION: 1. No evidence for Pulmonary embolism at this time.
[2022-09-08 11:35] VITALS: BMI 25.0
[2022-09-08 11:37] LABS: HCT 28.2 % (39.6-50.0); HGB 9.4 g/dL (13.0-17.0); MCH 33.8 pg (27.0-32.0); MCHC 33.3 g/dL (32.0-37.0); MCV 101.4 fL (80.0-97.0); Mean Platelet Volume 10.2 fL (9.5-12.2); NRBC Per 100 WBC 0 /100 WBCS (0.0-0.0); Platelet Count 142 X 10*3/uL (140-440); RBC 2.78 X 10*6/uL (4.40-5.60); RDW 13.1 % (11.5-14.5); WBC 6.64 X 10*3/uL (4.50-10.00)
[2022-09-08] MEDS: POTASSIUM CHLORIDE ER 20 MEQ TAB.ER PO SCH ×2 (11:48→13:05)
[2022-09-08] MEDS ORDERED: POTASSIUM BICARBONATE/CIT AC 20 MEQ TABLET.EFF PO SCH (12:00)
[2022-09-08] MEDS ORDERED: POTASSIUM CHLORIDE ER 20 MEQ TAB.ER PO STA (12:25)
--- NOTE | 2022-09-08 12:38 | P.PN ---
Subjective Progress Note Date: 09/08/22 Principal diagnosis: Microperforation of sigmoid colon S/P Colonoscopy 09/03 ([facility]) 41 M who underwent colonoscopy on 09/03 at [facility] as part of an ongoing work up for electrolyte dyscrasia, joint pain & diarrhea. Underwent hot snare polypectomy at the time of colonoscopy. Yesterday on drive home felt cramping diffuse abdominal pain, which increased in severity this morning. Hasn't eaten since prior to colonoscopy prep; had a bit of water this morning. Passing clear liquid stools. Associated nausea. Pain progressively got worse throughout the day & came to ER to get evaluated. CT was concerning for foci of free air along sigmoid colon. ER physician was in touch with endoscopist at [facility]; suspected post polypectomy syndrome. On ride to hospital, bumps in road worsened pain. Dilaudid helped briefly with pain. Taken to OR for diagnostic laparoscopy, succus noted in the pelvis & converted to open. Small pin point perforation with liquid stool spillage noted. Perforation was tiny & oversewn. Liver was noted to be extensively nodular & cirrhotic appearing. Continues to not want to get out of bed. Not working with IS. Fevers overnight. No leukocytosis, no tachycardia. Objective - Vital Signs Vital signs: Vital Signs Temp 100.5 F H 09/08/22 07:49 Pulse 83 09/08/22 06:54 Resp 18 09/08/22 06:54 BP 151/99 09/08/22 06:54 Pulse Ox 97 09/08/22 04:37 FiO2 Intake & Output 09/07/22 09/08/22 09/08/22 18:59 06:59 18:59 Intake Total 100 Balance 100 Intake: Oral 100 Other: Voiding Method Toilet Toilet # Voids 5 2 - Constitutional General appearance: Present: cooperative, no acute distress - EENT Eyes: Absent: scleral icterus - Respiratory Respiratory: bilateral: CTA - Cardiovascular Rhythm: regular - Gastrointestinal Gastrointestinal Comment(s): No tenderness to palpation when distracted. Midline incision healing well; elisabeth in place. No s/s infection. General gastrointestinal: Present: decreased bowel sounds, soft. Absent: distended, rigid - Integumentary Integumentary Comment(s): Dry, no diaphoresis. - Labs CBC & Chem 7: 09/08/22 05:52 09/08/22 05:52 Labs: Abnormal Lab Results - Last 24 Hours (Table) 09/07/22 09/07/22 09/07/22 Range/Units 03:38 03:38 11:50 RBC 3.09 L (4.40-5.60) X 10*6/uL Hgb 10.5 L (13.0-17.0) g/dL Hct 33.8 L (39.6-50.0) % MCV 109.4 H (80.0-97.0) fL MCH 34.0 H (27.0-32.0) pg MCHC 31.1 L (32.0-37.0) g/dL Carbon Dioxide 19.9 L (20.0-27.5) mmol/L BUN/Creatinine Ratio 10.98 L (12.00-20.00) Ratio Calcium 7.3 L (8.7-10.3) mg/dL Magnesium 1.4 L (1.5-2.4) mg/dL Urine Protein 1+ H (Negative) Urine Ketones Trace H (Negative) Ur Leukocyte Esterase Small H (Negative) Urine Mucus (None) /hpf 09/08/22 Range/Units 00:55 RBC (4.40-5.60) X 10*6/uL Hgb (13.0-17.0) g/dL Hct (39.6-50.0) % MCV (80.0-97.0) fL MCH (27.0-32.0) pg MCHC (32.0-37.0) g/dL Carbon Dioxide (20.0-27.5) mmol/L BUN/Creatinine Ratio (12.00-20.00) Ratio Calcium (8.7-10.3) mg/dL Magnesium (1.5-2.4) mg/dL Urine Protein 1+ H (Negative) Urine Ketones Trace H (Negative) Ur Leukocyte Esterase Trace H (Negative) Urine Mucus Rare H (None) /hpf Microbiology - Last 24 Hours (Table) 09/04/22 15:31 Blood Culture - Preliminary Blood No Growth after 72 hours - Imaging and Cardiology Chest x-ray: image reviewed Assessment and Plan Assessment: Abdominal pain with signs of peritonitis Foci of pneumoperitoneum on CT S/P colonoscopy with polypectomy 09/03 ([facility]) S/P diagnostic laparoscopy converted to open laparotomy with oversew of pinpoint perforation 09/04 Right pneumonia, new Plan: Continue clears for now. OK to saline/hep lock IVF once tolerating PO. AM labs ordered. Magnesium supplementation ordered. Discussion regarding importance of ambulating & getting out of bed; PT consulted. UA, Sputum Cx ordered 2/2 fevers, new signs of PNA on CXR. On zosyn, flagyl. Regimented pain schedule. Will consider pain mgmt consult if CTs negative. CT CAP with contrast ordered. Will need Endocrinology eval as an outpatient. Appreciate medical consultation & input. Time with Patient: Less than 30
[2022-09-08] MEDS ORDERED: POTASSIUM CHLORIDE 10 MEQ in WATER FOR INJECTION 1 100ML.BAG IVPB SCH (13:00)
--- NOTE | 2022-09-08 20:40 | P.PN ---
Progress Note - Text Progress Note Date: 09/08/22 - Chief Complaint Abdominal pain Hospital course This is a pleasant 41-year-old patient who is from out of town. Chronic stable medical conditions include gout, hypertension, anxiety and chronic pain for which he takes Neurontin. Patient yesterday underwent colonoscopy in [facility]. Polyp was removed.. Following that patient drove up to [place] on with his girlfriend. Yesterday evening started having increasing abdominal pain. Started becoming uncomfortable. Nausea. Decided to come to the ER. Computed tomography scan the ER showed limited pneumoperitoneum. Single surgical clip was noted in the mid sigmoid colon. Fat stranding and wall thickening involving the sigmoid colon was also noted. underwent laparotomy with oversew of the pinpoint perforation by . She did notice some spillage of stool in the abdomen. Today patient has NG tube to suction. Having abdominal pain. No flatus. On IV Zosyn. Patient is also noted to have a cirrhotic liver. 09/06/2022: NG tube discontinued. Started on clear liquids. Minimal flatus. Results of ultrasound liver discussed. Patient did confirm that he drank heavily for 3-4 years. Not prior to that. Following his divorce. He will follow-up with a comb setter in [place]. Abdominal pain. On IV Zosyn and Flagyl. September 07: had some loose BM. NG tube discontinued. Started on clear liquids. Asked sit up in a chair. Abdominal pain. Having low-grade fever. On IV Zosyn and Flagyl. September 08: Barely eating. On clear liquid diet. Abdominal pain persist. No nausea vomiting. Spiked fever this morning. ID consulted. On IV Zosyn and [place] gyl. Had some loose stools. Active Medications Allopurinol (Allopurinol 100 Mg Tab) 200 mg PO DAILY [facility] Last Admin: 09/08/22 08:37 Dose: 200 mg Benzocaine (Benzocaine [place] 1 Can) 1 spray MUCOUS MEM QID PRN; Protocol PRN Reason: Mouth Irritation Last Admin: 09/05/22 20:08 Dose: 1 spray Cyclobenzaprine HCl (Cyclobenzaprine 5 Mg Tab) 5 mg PO TID [facility] Last Admin: 09/08/22 15:04 Dose: 5 mg Enoxaparin Sodium (Enoxaparin 40 Mg/0.4 Ml Syringe) 40 mg SQ DAILY [facility] Last Admin: 09/08/22 08:37 Dose: 40 mg Gabapentin (Gabapentin 300 Mg Cap) 300 mg PO BID [facility] Last Admin: 09/08/22 08:37 Dose: 300 mg Hydromorphone HCl (Hydromorphone 1 Mg/Ml 1 Ml Syringe) 1 mg IVP Q3HR PRN PRN Reason: Severe Pain (Scale 7 to 10) Last Admin: 09/08/22 17:59 Dose: 1 mg Piperacillin Sod/Tazobactam (Sod 3.375 gm/ Sodium Chloride) 100 mls @ 25 mls/hr IVPB Q8H [facility]; Protocol Last Admin: 09/08/22 11:49 Dose: 25 mls/hr Sodium Chloride (Saline 0.9%) 1,000 mls @ 130 mls/hr IV .Q7H42M [facility] Last Admin: 09/08/22 16:48 Dose: 130 mls/hr Metronidazole 500 mg/ IV (Solution) 100 mls @ 100 mls/hr IVPB Q8HR [facility]; Protocol Last Admin: 09/08/22 15:04 Dose: 100 mls/hr Ketorolac Tromethamine (Ketorolac 15 Mg/Ml 1 Ml Vial) 15 mg IVP Q6HR PRN PRN Reason: mild pain Stop: 09/11/22 19:47 Last Admin: 09/08/22 16:48 Dose: 15 mg Lisinopril (Lisinopril 20 Mg Tab) 20 mg PO DAILY [facility] Last Admin: 09/08/22 08:37 Dose: 20 mg Magnesium Oxide (Magnesium Oxide 400 Mg Tab) 400 mg PO BID [facility] Last Admin: 09/08/22 08:37 Dose: 400 mg Naloxone HCl (Naloxone 0.4 Mg/Ml 1 Ml Vial) 0.2 mg IV Q2M PRN PRN Reason: Opioid Reversal Ondansetron HCl (Ondansetron 4 Mg/2 Ml Vial) 4 mg IVP Q8HR PRN PRN Reason: Nausea And Vomiting Last Admin: 09/04/22 19:46 Dose: 4 mg Pantoprazole Sodium (Pantoprazole 40 Mg/10 Ml Vial) 40 mg IV DAILY [facility] Last Admin: 09/08/22 08:53 Dose: 40 mg Tramadol HCl (Tramadol 50 Mg Tab) 50 mg PO QID PRN PRN Reason: Mild to Moderate Pain (1 - 6) Last Admin: 09/08/22 15:04 Dose: 50 mg Past medical history to include: Hypertension, gout, chronic pain Social history: Works at [employer]. Alcohol rarely. Smoking. Does use marijuana Physical examination: VITAL SIGNS: 102.1, 83, 18, 1 51 x 99, 98% room air GENERAL: in bed a bit uncomfortable EYES: Pupils equal. Conjunctiva normal. HEENT: External appearance of nose and ears normal, oral cavity grossly normal. NG tube discontinued NECK: JVD not raised; masses not palpable. HEART: First and second heart sounds are normal; no edema. LUNGS: Respiratory rate normal; clear to auscultation. ABDOMEN: Soft, tender, no guarding rigidity, dressing over the midline incision, liver spleen not palpable, no masses palpable. PSYCH: Alert and oriented x3; mood and affect anxiousl. INVESTIGATIONS, reviewed in the clinical context: September 08: White count 6.6 hemoglobin 9.4 platelets 142 progression 2.7 creatinine 1.0 September 07: White count 7.3 hemoglobin 10.5 potassium 3.6 creatinine 1.2 magnesium 1.4 Liver ultrasound: Contracted gallbladder with single small gallstone. Liver grossly normal reported. 09/06/2022: White count 6.9 hemoglobin 9.1 platelets 143 progression 3.7 creatinine 1.1 Hepatitis B surface antigen/hepatitis B surface antibody/hepatitis B core total antibody: Nonreactive White count 6.5 hemoglobin 13.4 platelets 174 sodium 134 potassium 5.4 cr eatinine 1.19 Lactic acid 2.4 AST 124 ALT 90 Influenza type A/type B/RSV/COVID-19: Not detected EKG tracing personally reviewed by me-normal sinus rhythm Assessment and plan: -Acute microperforation of the colon following removal of large polyp at an outside facility.oversew of the microperforation. Surgeon:Dr Church. clear liquid diet. -Secondary peritonitis secondary to stool overspill, having low-grade fever: Not improving IV Zosyn. IV Flagyl. Consult ID -Cirrhosis discovered during surgery Abdominal ultrasound nonspecific.. Results discussed with the patient. He'll follow-up with a comb setter in [place] upon return. -Chronic gout Allopurinol -Essential hypertension Zestril -Chronic pain Neurontin -Hypoalbuminemia Replace -Severe hypokalemia from diarrhea: New diagnosis Replace potassium. Change IV fluids to LR. replace potassium. Change IV fluids to LR. Continue with IV Zosyn and IV Flagyl. Consult ID.
[2022-09-08] MEDS: LACTATED RINGERS 1,000 ML IV SCH (21:11)
--- NOTE | 2022-09-08 21:19 | P.CONS ---
History of Present Illness - Reason for Consult Consult date: 09/08/22 Persistent fever Requesting physician: Tod Jeffery - Chief Complaint Abdominal pain x few days - History of Present Illness Patient is a 41-year-old male who did have a screening colonoscopy done at [facility] on 09/03/2022 patient mention he did have 2 polyps removed and one was a large 1 in the mid sigmoid area with did apply some surgical clips patient mention started having abdominal pain few Hours after he did have the procedure done,patient mention he was already back in [place] and hence decided not to call back to the [facility] where the patient was brought into the ER at [facility] by EMS on 09/04/2022 at 1541, patient did have CT of abdominal pelvis that was suggestive possible focal perforation sigmoid colon patient was evaluated by general surgery he did have a diagnostic laparoscopic that was converted to laparotomy with overall severe on the pinpoint perforation of the sigmoid colon as there was evidence of spillage of the stool into the peritoneal cavity no OR cultures were done, patient was afebrile on presentation to the hospital however the patient has been spiking fever since 09/05/2022 with persistent fever for the last 2 days that has prompted this infectious disease consultation. On today's evaluation that is 09/08/2022 the patient. Potassium has slight improved as he has only temperature 100.5F patient denies having any headache or URI symptoms denies having any chest pain or shortness with occasional cough patient be complaining of abdominal pain more of a sharp 78 out of 10 and no radiation some nausea but no vomiting no diarrhea and no urinary symptoms, patient did have a normal white count during this hospital stay, patient did have a CT angiogram of the chest that was negative for PE did show some compressive atelectasis and effusion CT abdominal pelvis that shows fluid in the pelvis and a free air which she is attributing it to the recent surgery did not mention any suspicious for abscess, patient did have a negative UA Review of Systems Positive point has been mentioned in the HPI rest of the systems are negative Past Medical History Past Medical History: Osteoarthritis (OA) Additional Past Medical History / Comment(s): Gout, HTN, Electrolyte abnormality History of Any Multi-Drug Resistant Organisms: None Reported Past Surgical History: Joint Replacement Additional Past Surgical History / Comment(s): Bilateral hip replacement, Left shoulder replacement, Denies abdominal surgeries, Colonoscopy Past Psychological History: Anxiety Smoking Status: Vaper Past Alcohol Use History: Occasional Past Drug Use History: Marijuana - Past Family History Father Additional Family Medical History / Comment(s): Diverticulitis, Gout, HTN Medications and Allergies Home Medications Medication Instructions Recorded Confirmed Type Calcium Carbonate [Tums] 1,000 mg PO BID 09/04/22 09/04/22 History Gabapentin [Neurontin] 300 mg PO BID 09/04/22 09/04/22 History Magnesium Oxide [Mag-Ox] 400 mg PO BID 09/04/22 09/04/22 History Multivitamins, Thera [Multivitamin 1 tab PO DAILY 09/04/22 09/04/22 History (formulary)] Potassium Chloride [Potassium 30 meq PO BID 09/04/22 09/04/22 History Chloride ER] Sildenafil Citrate 50 mg PO DAILY PRN 09/04/22 09/04/22 History allopurinoL [Zyloprim] 200 mg PO DAILY 09/04/22 09/04/22 History calcitrioL [Calcitriol] 0.25 mcg PO DAILY 09/04/22 09/04/22 History hydrOXYzine HCL [Atarax] 25 mg PO TID PRN 09/04/22 09/04/22 History lisinopriL [Zestril] 20 mg PO DAILY 09/04/22 09/04/22 History oxyCODONE ER [OxyCONTIN] 5 mg PO Q12HR 3 Days #20 tab 09/12/22 Rx Allergies Allergy/AdvReac Type Severity Reaction Status Date / Time No Known Allergies Allergy Verified 09/04/22 19:08 Physical Exam Vitals: Vital Signs Temp Pulse Pulse Resp BP Pulse Ox 09/08/22 12:02 98.2 F 09/08/22 07:49 100.5 F H 09/08/22 06:54 99.1 F 83 18 151/99 09/08/22 05:45 102.8 F H 09/08/22 05:15 102.1 F H 09/08/22 04:37 99.7 F H 94 155/97 97 09/08/22 04:20 101.6 F H 96 18 146/93 97 09/08/22 03:20 103.0 F H 105 H 18 154/96 97 09/07/22 23:59 102.2 F H 09/07/22 23:58 99.8 F H 96 136/89 96 09/07/22 22:10 101.0 F H 95 17 169/103 98 09/07/22 21:00 102.3 F H 09/07/22 19:40 101.2 F H 88 16 158/101 96 09/07/22 14:00 99.5 F 92 18 137/84 09/07/22 13:01 100.7 F H Intake and Output 09/07/22 09/08/22 09/08/22 22:59 06:59 14:59 Intake Total 100 Balance 100 Intake: Oral 100 Other: Voiding Method Toilet # Voids 5 2 Weight 83.915 kg GENERAL DESCRIPTION: Middle-aged male lying in bed, no distress. No tachypnea or accessory muscle of respiration use. HEENT: Shows Pallor , no scleral icterus. Oral mucous membrane is dry. No pharyngeal erythema or thrush NECK: Trachea central, no thyromegaly. LUNGS: Unlabored breathing. Clear to auscultation anteriorly. No wheeze or crackle. HEART: S1, S2, regular rate and rhythm. No loud murmur ABDOMEN: Soft, mild distention and tenderness EXTREMITIES: No edema of feet. SKIN: No rash, no masses palpable. NEUROLOGICAL: The patient is awake, alert, oriented x3, mood and affect normal. Results CBC & Chem 7: 09/09/22 03:31 09/11/22 12:35 Labs: Abnormal Lab Results - Last 24 Hours (Table) 09/08/22 09/08/22 09/08/22 Range/Units 00:55 05:52 05:52 RBC 2.78 L (4.40-5.60) X 10*6/uL Hgb 9.4 L (13.0-17.0) g/dL Hct 28.2 L (39.6-50.0) % MCV 101.4 H (80.0-97.0) fL MCH 33.8 H (27.0-32.0) pg Sodium 133 L (135-145) mmol/L Potassium 2.7 L* (3.5-5.5) mmol/L Carbon Dioxide 17.1 L (20.0-27.5) mmol/L BUN/Creatinine Ratio 9.40 L (12.00-20.00) Ratio Calcium 6.9 L (8.7-10.3) mg/dL Magnesium 1.3 L (1.5-2.4) mg/dL Urine Protein 1+ H (Negative) Urine Ketones Trace H (Negative) Ur Leukocyte Esterase Trace H (Negative) Urine Mucus Rare H (None) /hpf Microbiology - Last 24 Hours (Table) 09/04/22 15:31 Blood Culture - Preliminary Blood No Growth after 72 hours Assessment and Plan (1) Postoperative abdominal pain with fever Status: Acute Code(s): R10.9 - UNSPECIFIED ABDOMINAL PAIN; R50.82 - POSTPROCEDURAL FEVER; G89.18 - OTHER ACUTE POSTPROCEDURAL PAIN SNOMED Code(s): 36683123 Plan: 1patient with a postoperative fever in this patient who did have a recent colonoscopy done at the [facility] and subsequently presented to hospital with abdominal pain started a few hours after procedure and did have evidence of pinpoint perforation of the sigmoid colon status post laparotomy and oversewing of the perforation, there was a documentation of spillage of the sigmoid colon contained into the peritoneal cavity, however no OR cultures available blood culture has been negative so far patient did have a normal white count and does not look toxic. We need to cover for the enteric gram-negative both anaerobes and anaerobes, patient did have a CT angiogram of the chest was negative for PE or pneumonia, CT of abdominal pelvis tissue some free but no mention of any a bscess. 2we will continue the patient on Zosyn as the patient developed toxic fever pattern seemed to be improving and the patient did have a normal white count. 3we will recheck his inflammatory markers with a.m. lab if any worsening white count or worsening fever we'll add gram-positive coverage. We will follow on clinical condition and cultures to further adjust medication if needed Thank you for this consultation will follow this patient with you Time with Patient: Greater than 30
[2022-09-09] MEDS: metroNIDAZOLE-NS PMX 500 MG in SALINE 1 100ML.BAG IVPB SCH ×4 (00:28→23:53)
[2022-09-09] MEDS: HYDROmorphone 1 MG/ML 1 ML SYRINGE IVP PRN ×7 (00:29→20:57)
[2022-09-09] MEDS: PIPERACILLIN-TAZOBACTAM 3.375 GM in SODIUM CHLORIDE 0.9% 100 ML IVPB SCH ×3 (03:46→20:58)
[2022-09-09] MEDS: KETOROLAC 15 MG/ML 1 ML VIAL IVP PRN ×2 (06:13→23:52)
[2022-09-09] MEDS: LACTATED RINGERS 1,000 ML IV SCH ×4 (06:14→23:59)
[2022-09-09] MEDS: allopurinoL 100 MG TAB PO SCH (08:01)
[2022-09-09] MEDS: MAGNESIUM OXIDE 400 MG TAB PO SCH ×2 (08:01→20:58)
[2022-09-09] MEDS: GABAPENTIN 300 MG CAP PO SCH ×2 (08:01→20:58)
[2022-09-09] MEDS: CYCLOBENZAPRINE 5 MG TAB PO SCH ×3 (08:01→22:04)
[2022-09-09] MEDS: lisinopriL 20 MG TAB PO SCH (08:01)
[2022-09-09] MEDS: ENOXAPARIN 40 MG/0.4 ML SYRINGE SQ SCH (08:02)
[2022-09-09] MEDS: PANTOPRAZOLE 40 MG/10 ML VIAL IV SCH (08:05)
[2022-09-09 10:47] LABS: Basophils # (A) 0.02 X 10*3/uL (0.00-0.10); Basophils % (A) 0.4 %; Eosinophils # (A) 0.23 X 10*3/uL (0.04-0.35); Eosinophils % (A) 4.4 %; HCT 30.7 % (39.6-50.0); Immature Grans, Automated 1.4 %; Lymphocytes # (A) 0.78 X 10*3/uL (0.90-5.00); Lymphocytes % (A) 15.1 %; MCH 33.6 pg (27.0-32.0); MCHC 32.6 g/dL (32.0-37.0); Mean Platelet Volume 10.7 fL (9.5-12.2); Monocytes # (A) 1.04 X 10*3/uL (0.20-1.00); Monocytes % (A) 20.1 %; NRBC Per 100 WBC 0 /100 WBCS (0.0-0.0); Neutrophils # (A) 3.03 X 10*3/uL (1.80-7.70); Neutrophils % (A) 58.6 %; Platelet Count 140 X 10*3/uL (140-440); RBC 2.98 X 10*6/uL (4.40-5.60); RDW 13.5 % (11.5-14.5); WBC 5.17 X 10*3/uL (4.50-10.00)
[2022-09-09 11:10] LABS: C Reactive Protein 19.2 mg/dL (0.00-0.80)
[2022-09-09 11:31] LABS: African American GFR (CKD) 119.5 (60.0-200.0); Albumin 3.2 g/dL (3.8-4.9); Albumin/Globulin Ratio 1.21 (1.60-3.17); Anion Gap 13.4 mmol/L (10.00-18.00); BUN/Creat Ratio 7.39 Ratio (12.00-20.00); Blood Urea Nitrogen 6.8 mg/dL (9.0-27.0); Calcium 7.5 mg/dL (8.7-10.3); Carbon Dioxide 18.3 mmol/L (20.0-27.5); Globulin 2.6 g/dL (1.6-3.3); Non-African American GFR(CKD) 103.1 (60.0-200.0); Potassium 2.9 mmol/L (3.5-5.5); Total Bilirubin 0.9 mg/dL (0.30-1.20); Total Protein 5.8 g/dL (6.2-8.2)
[2022-09-09] MEDS: POTASSIUM CHLORIDE ER 20 MEQ TAB.ER PO SCH ×2 (12:54→15:45)
--- NOTE | 2022-09-09 16:35 | P.PN ---
Subjective Progress Note Date: 09/09/22 Principal diagnosis: Postop fever Patient is a 41-year-old male who did have a screening colonoscopy done at [facility] on 09/03/2022 patient mention he did have 2 polyps removed , subsequently developing abdominal pain presenting to the ER CT of abdominal pelvis concerning for perforation of the sigmoid colon patient was taken to the OR status post laparotomy with overseeing of pinpoint perforation, did have a postop fever. On today's evaluation is 09/09/2022, the patient overall fever pattern has improved and no fever this morning patient is breathing comfortably currently on room air has been complaining of abdominal pain the controlled with the pain me dication no nausea vomiting did have some loose stools Objective - Vital Signs Vital signs: Vital Signs Temp 99.1 F 09/09/22 06:48 Pulse 94 09/09/22 06:48 Resp 18 09/09/22 09:11 BP 136/90 09/09/22 06:48 Pulse Ox 99 09/09/22 02:00 FiO2 Intake & Output 09/08/22 09/09/22 09/09/22 18:59 06:59 18:59 Weight 83.915 kg Other: Voiding Method Toilet Toilet # Voids 3 3 - Exam GENERAL DESCRIPTION: An elderly male lying in bed in no distress RESPIRATORY SYSTEM: Unlabored breathing , decreased breath sounds at bases HEART: S1 S2 regular rate and rhythm , ABDOMEN: Soft , mild distention and tenderness EXTREMITIES: No edema feet - Labs CBC & Chem 7: 09/09/22 03:31 09/09/22 03:31 Labs: Abnormal Lab Results - Last 24 Hours (Table) 09/08/22 09/08/22 09/09/22 Range/Units 05:52 05:52 03:31 RBC 2.78 L 2.98 L (4.40-5.60) X 10*6/uL Hgb 9.4 L 10.0 L (13.0-17.0) g/dL Hct 28.2 L 30.7 L (39.6-50.0) % MCV 101.4 H 103.0 H (80.0-97.0) fL MCH 33.8 H 33.6 H (27.0-32.0) pg Immature Gran # 0.07 H (0.00-0.04) X 10*3/uL Lymphocytes # 0.78 L (0.90-5.00) X 10*3/uL Monocytes # 1.04 H (0.20-1.00) X 10*3/uL Sodium 133 L (135-145) mmol/L Potassium 2.7 L* (3.5-5.5) mmol/L Carbon Dioxide 17.1 L (20.0-27.5) mmol/L BUN/Creatinine Ratio 9.40 L (12.00-20.00) Ratio Calcium 6.9 L (8.7-10.3) mg/dL Magnesium 1.3 L (1.5-2.4) mg/dL Microbiology - Last 24 Hours (Table) 09/08/22 05:52 Blood Culture - Preliminary Blood No Growth after 24 hours 09/04/22 15:31 Blood Culture - Preliminary Blood No Growth after 96 hours Assessment and Plan (1) Postoperative fever Current Visit: Yes Status: Acute Code(s): R50.82 - POSTPROCEDURAL FEVER SNOMED Code(s): 736184772 (2) Postoperative abdominal pain with fever Current Visit: Yes Status: Acute Code(s): R10.9 - UNSPECIFIED ABDOMINAL PAIN; R50.82 - POSTPROCEDURAL FEVER; G89.18 - OTHER ACUTE POSTPROCEDURAL PAIN SNOMED Code(s): 97437581 Plan: 1patient with a postoperative fever in this patient who did have a recent colonoscopy done at the [facility] and subsequently presented to hospital with abdominal pain started a few hours after procedure and did have evidence of pinpoint perforation of the sigmoid colon status post laparotomy and oversewing of the perforation, there was a documentation of spillage of the sigmoid colon contained into the peritoneal cavity, however no OR cultures available blood culture has been negative so far patient did have a normal white count and does not look toxic. We need to cover for the enteric gram-negative both anaerobes and anaerobes, patient did have a CT angiogram of the chest was negative for PE CT of abdominal pelvis tissue some free but no mention of any abscess. 2the patient fever has resolved and the white count has been normal we will keep the patient on Zosyn and monitor clinical course closely
--- NOTE | 2022-09-09 19:05 | P.PN ---
Progress Note - Text Progress Note Date: 09/09/22 - Chief Complaint Abdominal pain Hospital course This is a pleasant 41-year-old patient who is from out of town. Chronic stable medical conditions include gout, hypertension, anxiety and chronic pain for which he takes Neurontin. Patient yesterday underwent colonoscopy in [facility]. Polyp was removed.. Following that patient drove up to [place] on with his girlfriend. Yesterday evening started having increasing abdominal pain. Started becoming uncomfortable. Nausea. Decided to come to the ER. Computed tomography scan the ER showed limited pneumoperitoneum. Single surgical clip was noted in the mid sigmoid colon. Fat stranding and wall thickening involving the sigmoid colon was also noted. underwent laparotomy with oversew of the pinpoint perforation by . She did notice some spillage of stool in the abdomen. Today patient has NG tube to suction. Having abdominal pain. No flatus. On IV Zosyn. Patient is also noted to have a cirrhotic liver. 09/06/2022: NG tube discontinued. Started on clear liquids. Minimal flatus. Results of ultrasound liver discussed. Patient did confirm that he drank heavily for 3-4 years. Not prior to that. Following his divorce. He will follow-up with a customer care assistant in [place]. Abdominal pain. On IV Zosyn and Flagyl. September 07: had some loose BM. NG tube discontinued. Started on clear liquids. Asked sit up in a chair. Abdominal pain. Having low-grade fever. On IV Zosyn and Flagyl. September 08: Barely eating. On clear liquid diet. Abdominal pain persist. No nausea vomiting. Spiked fever this morning. ID consulted. On IV Zosyn and Fla gyl. Had some loose stools. September 09: Remains on clear liquid diet. Some decrease in bowel pain. Some diarrhea. Fever has come down. There is on IV Flagyl and IV Zosyn. IV fluids. Computed tomography scan done yesterday showed some ascites. Some question about large bowel ileus. Chest CTA was negative for PE. Active Medications Allopurinol (Allopurinol 100 Mg Tab) 200 mg PO DAILY SHERLY Last Admin: 09/09/22 08:01 Dose: 200 mg Benzocaine (Benzocaine [place] 1 Can) 1 spray MUCOUS MEM QID PRN; Protocol PRN Reason: Mouth Irritation Last Admin: 09/05/22 20:08 Dose: 1 spray Calcitriol (Calcitriol 0.25 Mcg Cap) 0.25 mcg PO DAILY [facility] Last Admin: 09/09/22 18:13 Dose: 0.25 mcg Calcium Carbonate/Glycine (Calcium Carbonate 500 Mg Chewable) 1,000 mg PO BID [facility] Cyclobenzaprine HCl (Cyclobenzaprine 5 Mg Tab) 5 mg PO TID [facility] Last Admin: 09/09/22 15:45 Dose: 5 mg Enoxaparin Sodium (Enoxaparin 40 Mg/0.4 Ml Syringe) 40 mg SQ DAILY [facility] Last Admin: 09/09/22 08:02 Dose: 40 mg Gabapentin (Gabapentin 300 Mg Cap) 300 mg PO BID [facility] Last Admin: 09/09/22 08:01 Dose: 300 mg Hydromorphone HCl (Hydromorphone 1 Mg/Ml 1 Ml Syringe) 1 mg IVP Q3HR PRN PRN Reason: Severe Pain (Scale 7 to 10) Last Admin: 09/09/22 17:29 Dose: 1 mg Piperacillin Sod/Tazobactam (Sod 3.375 gm/ Sodium Chloride) 100 mls @ 25 mls/hr IVPB Q8H [facility]; Protocol Last Admin: 09/09/22 12:54 Dose: 25 mls/hr Metronidazole 500 mg/ IV (Solution) 100 mls @ 100 mls/hr IVPB Q8HR [facility]; Protocol Last Admin: 09/09/22 17:41 Dose: 100 mls/hr Lactated Ringer's (Lactated Ringers) 1,000 mls @ 150 mls/hr IV .Q6H40M [facility] Last Admin: 09/09/22 17:51 Dose: Not Given Ketorolac Tromethamine (Ketorolac 15 Mg/Ml 1 Ml Vial) 15 mg IVP Q6HR PRN PRN Reason: mild pain Stop: 09/11/22 19:47 Last Admin: 09/09/22 06:13 Dose: 15 mg Lisinopril (Lisinopril 20 Mg Tab) 20 mg PO DAILY [facility] Last Admin: 09/09/22 08:01 Dose: 20 mg Magnesium Oxide (Magnesium Oxide 400 Mg Tab) 400 mg PO BID [facility] Last Admin: 09/09/22 08:01 Dose: 400 mg Magnesium Oxide (Magnesium Oxide 400 Mg Tab) 400 mg PO BID [facility] Naloxone HCl (Naloxone 0.4 Mg/Ml 1 Ml Vial) 0.2 mg IV Q2M PRN PRN Reason: Opioid Reversal Ondansetron HCl (Ondansetron 4 Mg/2 Ml Vial) 4 mg IVP Q8HR PRN PRN Reason: Nausea And Vomiting Last Admin: 09/04/22 19:46 Dose: 4 mg Pantoprazole Sodium (Pantoprazole 40 Mg/10 Ml Vial) 40 mg IV DAILY [facility] Last Admin: 09/09/22 08:05 Dose: 40 mg Potassium Chloride (Potassium Chloride Er 10 Meq Tab.Er.Prt) 30 meq PO BID [facility] Tramadol HCl (Tramadol 50 Mg Tab) 50 mg PO QID PRN PRN Reason: Mild to Moderate Pain (1 - 6) Last Admin: 09/08/22 15:04 Dose: 50 mg Past medical history to include: Hypertension, gout, chronic pain Social history: Works at [employer]. Alcohol rarely. Smoking. Does use marijuana Physical examination: VITAL SIGNS: Afebrile, 94, 17, 136.90, 97% room air GENERAL: Laying in bed, appears more comfortable EYES: Pupils equal. Conjunctiva normal. HEENT: External appearance of nose and ears normal, oral cavity grossly normal. NG tube discontinued NECK: JVD not raised; masses not palpable. HEART: First and second heart sounds are normal; no edema. LUNGS: Respiratory rate normal; clear to auscultation. ABDOMEN: Soft, less tender, no guarding rigidity, dressing over the midline incision, liver spleen not palpable, no masses palpable. PSYCH: Alert and oriented x3; mood and affect anxiousl. INVESTIGATIONS, reviewed in the clinical context: September 09: White count 5.1 hemoglobin 10 potassium 2.9 creatinine 0.9 Computed tomography scan abdomen [September 08]: Some ascites. Questions large bowel ileus Chest CTA [September 08]: Negative for PE September 08: White count 6.6 hemoglobin 9.4 platelets 142 progression 2.7 creatinine 1.0 September 07: White count 7.3 hemoglobin 10.5 potassium 3.6 creatinine 1.2 magnesium 1.4 Liver ultrasound: Contracted gallbladder with single small gallstone. Liver grossly normal reported. 09/06/2022: White count 6.9 hemoglobin 9.1 platelets 143 progression 3.7 creatinine 1.1 Hepatitis B surface antigen/hepatitis B surface antibody/hepatitis B core total antibody: Nonreactive White count 6.5 hemoglobin 13.4 platelets 174 sodium 134 potassium 5.4 creatinine 1.19 Lactic acid 2.4 AST 124 ALT 90 Influenza type A/type B/RSV/COVID-19: Not detected EKG tracing personally reviewed by me-normal sinus rhythm Assessment and plan: -Acute microperforation of the colon following removal of large polyp at an outside facility.oversew of the microperforation. Surgeon:Dr Church. clear liquid diet. -Secondary peritonitis secondary to stool overspill, having low-grade fever: Slow improvement, no further fever IV Zosyn. IV Flagyl. -Cirrhosis discovered during surgery Abdominal ultrasound nonspecific.. Results discussed with the patient. He'll follow-up with a customer care assistant in [place] upon return. -Chronic gout Allopurinol -Essential hypertension Zestril -Chronic pain Neurontin -Hypoalbuminemia Replace -Severe hypokalemia from diarrhea: Slow to respond fluids to LR. Aggressive replacement of potassium replace potassium. Lactated Ringer's.. Continue with IV Zosyn and IV Flagyl. Clinically doing better
--- NOTE | 2022-09-09 19:24 | P.PN ---
Subjective Progress Note Date: 09/09/22 Principal diagnosis: Microperforation of sigmoid colon S/P Colonoscopy 09/03 ([facility]) 41 M who underwent colonoscopy on 09/03 at [facility] as part of an ongoing work up for electrolyte dyscrasia, joint pain & diarrhea. Underwent hot snare polypectomy at the time of colonoscopy. Yesterday on drive home felt cramping diffuse abdominal pain, which increased in severity this morning. Hasn't eaten since prior to colonoscopy prep; had a bit of water this morning. Passing clear liquid stools. Associated nausea. Pain progressively got worse throughout the day & came to ER to get evaluated. CT was concerning for foci of free air along sigmoid colon. ER physician was in touch with endoscopist at [facility]; suspected post polypectomy syndrome. On ride to hospital, bumps in road worsened pain. Dilaudid helped briefly with pain. Taken to OR for diagnostic laparoscopy, succus noted in the pelvis & converted to open. Small pin point perforation with liquid stool spillage noted. Perforation was tiny & oversewn. Liver was noted to be extensively nodular & cirrhotic appearing. Walked in halls today. Using IS more. Pain improved. Afebrile. No leukocytosis, no tachycardia. Tolerating softs. Urinating without issues. Liquid stools. No SOB, KASSANDRA. Objective - Vital Signs Vital signs: Vital Signs Temp 99.1 F 09/09/22 06:48 Pulse 94 09/09/22 06:48 Resp 18 09/09/22 09:11 BP 136/90 09/09/22 06:48 Pulse Ox 99 09/09/22 02:00 FiO2 Intake & Output 09/08/22 09/09/22 09/09/22 18:59 06:59 18:59 Weight 83.915 kg Other: Voiding Method Toilet Toilet # Voids 3 3 - Constitutional General appearance: Present: cooperative, no acute distress - EENT Eyes: Present: anicteric sclerae ENT: Present: hearing grossly normal - Respiratory Respiratory: bilateral: CTA - Cardiovascular Rhythm: regular - Gastrointestinal Gastrointestinal Comment(s): Improved tenderness to palpation; no signs of peritonitis. General gastrointestinal: Present: soft. Absent: distended, rigid - Integumentary Integumentary Comment(s): Dry, no diaphoresis. - Psychiatric Psychiatric Comment(s): Flat affect. - Labs CBC & Chem 7: 09/09/22 03:31 09/09/22 03:31 Labs: Abnormal Lab Results - Last 24 Hours (Table) 09/08/22 09/08/22 Range/Units 05:52 05:52 RBC 2.78 L (4.40-5.60) X 10*6/uL Hgb 9.4 L (13.0-17.0) g/dL Hct 28.2 L (39.6-50.0) % MCV 101.4 H (80.0-97.0) fL MCH 33.8 H (27.0-32.0) pg Sodium 133 L (135-145) mmol/L Potassium 2.7 L* (3.5-5.5) mmol/L Carbon Dioxide 17.1 L (20.0-27.5) mmol/L BUN/Creatinine Ratio 9.40 L (12.00-20.00) Ratio Calcium 6.9 L (8.7-10.3) mg/dL Magnesium 1.3 L (1.5-2.4) mg/dL Microbiology - Last 24 Hours (Table) 09/08/22 05:52 Blood Culture - Preliminary Blood No Growth after 24 hours 09/04/22 15:31 Blood Culture - Preliminary Blood No Growth after 96 hours Assessment and Plan Assessment: Abdominal pain with signs of peritonitis Foci of pneumoperitoneum on CT S/P colonoscopy with polypectomy 09/03 ([facility]) S/P diagnostic laparoscopy converted to open laparotomy with oversew of pinpoint perforation 09/04 Right pneumonia, new Plan: Advance to fulls for dinner; if tolerates, can trial softs in AM. OK to saline/hep lock IVF once tolerating PO. AM labs ordered. Home electrolytes re-started. Discussion regarding importance of ambulating & getting out of bedd. Discussed regimented PO pain schedule; limit dilaudid in hopes of transitioning to outpatient regimen. Appreciate medical consultation & input. Time with Patient: Less than 30
[2022-09-09] MEDS: traMADol 50 MG TAB PO PRN (19:48)
[2022-09-09] MEDS: CALCIUM CARBONATE 500 MG CHEWABLE PO SCH (20:58)
[2022-09-09] MEDS ORDERED: MAGNESIUM OXIDE 400 MG TAB PO SCH (21:00)
[2022-09-10] MEDS: HYDROmorphone 1 MG/ML 1 ML SYRINGE IVP PRN ×5 (00:37→22:03)
[2022-09-10] MEDS: PIPERACILLIN-TAZOBACTAM 3.375 GM in SODIUM CHLORIDE 0.9% 100 ML IVPB SCH ×3 (03:36→20:29)
[2022-09-10 06:36] LABS: African American GFR (CKD) >90 (>60 ml/min/1.73 sqM); Anion Gap 6 mmol/L; Blood Urea Nitrogen 4 mg/dL (9-20); Calcium 7.5 mg/dL (8.4-10.2); Carbon Dioxide 19 mmol/L (22-30); Chloride 111 mmol/L (98-107); Glucose 82 mg/dL (74-99); Non-African American GFR(CKD) >90 (>60 ml/min/1.73 sqM); Potassium 2.9 mmol/L (3.5-5.1); Sodium 136 mmol/L (137-145)
[2022-09-10] MEDS: LACTATED RINGERS 1,000 ML IV SCH ×2 (06:47→11:12)
[2022-09-10] MEDS: POTASSIUM CHLORIDE ER 10 MEQ TAB.ER.PRT PO SCH ×2 (08:49→20:29)
[2022-09-10] MEDS: MAGNESIUM OXIDE 400 MG TAB PO SCH ×2 (08:49→20:29)
[2022-09-10] MEDS: PANTOPRAZOLE 40 MG/10 ML VIAL IV SCH (08:50)
[2022-09-10] MEDS: GABAPENTIN 300 MG CAP PO SCH ×2 (08:50→20:29)
[2022-09-10] MEDS: CYCLOBENZAPRINE 5 MG TAB PO SCH ×3 (08:50→21:42)
[2022-09-10] MEDS: CALCIUM CARBONATE 500 MG CHEWABLE PO SCH ×2 (08:50→20:29)
[2022-09-10] MEDS: ENOXAPARIN 40 MG/0.4 ML SYRINGE SQ SCH (08:50)
[2022-09-10] MEDS: lisinopriL 20 MG TAB PO SCH (08:50)
[2022-09-10] MEDS: traMADol 50 MG TAB PO PRN ×2 (08:50→14:03)
[2022-09-10] MEDS: allopurinoL 100 MG TAB PO SCH (08:50)
[2022-09-10] MEDS: metroNIDAZOLE-NS PMX 500 MG in SALINE 1 100ML.BAG IVPB SCH ×2 (08:57→16:25)
[2022-09-10] MEDS ORDERED: POTASSIUM CHLORIDE ER 20 MEQ TAB.ER PO STA (12:28)
--- NOTE | 2022-09-10 13:08 | P.PN ---
Subjective Progress Note Date: 09/10/22 Principal diagnosis: Postop fever Patient is a 41-year-old male who did have a screening colonoscopy done at [facility] on 09/03/2022 patient mention he did have 2 polyps removed , subsequently developing abdominal pain presenting to the ER CT of abdominal pelvis concerning for perforation of the sigmoid colon patient was taken to the OR status post laparotomy with overseeing of pinpoint perforation, did have a postop fever. On today's evaluation is 09/10/2022, the patient is afebrile this morning patient is breathing comfortably on room air, the patient abdominal pain has decreased in intensity and currently controlled with pain medication patient denies having any nausea or vomiting has been tolerating his clear liquid diet and did have some loose stools Objective - Vital Signs Vital signs: Vital Signs Temp 98.6 F 09/10/22 06:47 Pulse 83 09/10/22 06:47 Resp 15 09/10/22 06:47 BP 164/107 09/10/22 06:47 Pulse Ox 98 09/10/22 06:47 FiO2 Intake & Output 09/09/22 09/10/22 09/10/22 18:59 06:59 18:59 Intake Total 950 Balance 950 Intake: Oral 950 Other: Voiding Method Toilet Toilet # Voids 2 4 1 - Exam GENERAL DESCRIPTION: An elderly male lying in bed in no distress RESPIRATORY SYSTEM: Unlabored breathing , decreased breath sounds at bases HEART: S1 S2 regular rate and rhythm , ABDOMEN: Soft , mild distention and tenderness EXTREMITIES: No edema feet - Labs CBC & Chem 7: 09/09/22 03:31 09/10/22 05:52 Labs: Abnormal Lab Results - Last 24 Hours (Table) 09/09/22 09/10/22 Range/Units 03:31 05:52 Sodium 134 L 136 L (135-145) mmol/L Potassium 2.9 L 2.9 L (3.5-5.5) mmol/L Chloride 111 H (98-107) mmol/L Carbon Dioxide 18.3 L 19 L (20.0-27.5) mmol/L BUN 6.8 L 4 L (9.0-27.0) mg/dL BUN/Creatinine Ratio 7.39 L (12.00-20.00) Ratio Calcium 7.5 L 7.5 L (8.7-10.3) mg/dL Total Protein 5.8 L (6.2-8.2) g/dL Albumin 3.2 L (3.8-4.9) g/dL Albumin/Globulin Ratio 1.21 L (1.60-3.17) g/dL Microbiology - Last 24 Hours (Table) 09/08/22 05:52 Blood Culture - Preliminary Blood No Growth after 48 hours 09/04/22 15:31 Blood Culture - Preliminary Blood No Growth after 120 hours Assessment and Plan (1) Postoperative fever Current Visit: Yes Status: Acute Code(s): R50.82 - POSTPROCEDURAL FEVER SNOMED Code(s): 954911286 (2) Postoperative abdominal pain with fever Current Visit: Yes Status: Acute Code(s): R10.9 - UNSPECIFIED ABDOMINAL PAIN; R50.82 - POSTPROCEDURAL FEVER; G89.18 - OTHER ACUTE POSTPROCEDURAL PAIN SNOMED Code(s): 91281156 Plan: 1patient with a postoperative fever in this patient who did have a recent colonoscopy done at the [facility] and subsequently presented to hospital with abdominal pain started a few hours after procedure and did have evidence of pinpoint perforation of the sigmoid colon status post laparotomy and oversewing of the perforation, there was a documentation of spillage of the sigmoid colon contained into the peritoneal cavity, however no OR cultures available blood culture has been negative so far patient did have a normal white count and does not look toxic. We need to cover for the enteric gram-negative both anaerobes and anaerobes, patient did have a CT angiogram of the chest was negative for PE CT of abdominal pelvis tissue some free but no mention of any abscess. 2the patient fever has resolved and the white count has been normal , cultures have been negative so far we will continue patient on Zosyn and monitor clinical course closely Time with Patient: Less than 30
[2022-09-10] MEDS: SODIUM CHLORIDE 0.9% 1,000 ML IV SCH (13:48)
--- NOTE | 2022-09-10 18:17 | P.PN ---
Subjective Progress Note Date: 09/10/22 Principal diagnosis: Microperforation of sigmoid colon S/P Colonoscopy 09/03 ([facility]) 41 M who underwent colonoscopy on 09/03 at [facility] as part of an ongoing work up for electrolyte dyscrasia, joint pain & diarrhea. Underwent hot snare polypectomy at the time of colonoscopy. Yesterday on drive home felt cramping diffuse abdominal pain, which increased in severity this morning. Hasn't eaten since prior to colonoscopy prep; had a bit of water this morning. Passing clear liquid stools. Associated nausea. Pain progressively got worse throughout the day & came to ER to get evaluated. CT was concerning for foci of free air along sigmoid colon. ER physician was in touch with endoscopist at [facility]; suspected post polypectomy syndrome. On ride to hospital, bumps in road worsened pain. Dilaudid helped briefly with pain. Taken to OR for diagnostic laparoscopy, succus noted in the pelvis & converted to open. Small pin point perforation with liquid stool spillage noted. Perforation was tiny & oversewn. Liver was noted to be extensively nodular & cirrhotic appearing. Walked in halls today. Using IS more. Pain greatly improved, using less diluadid. Afebrile. No leukocytosis, no tachycardia. Tolerating softs. Urinating without issues. Liquid stools. No SOB, KASSANDRA. Objective - Vital Signs Vital signs: Vital Signs Temp 98.6 F 09/10/22 06:47 Pulse 83 09/10/22 06:47 Resp 15 09/10/22 06:47 BP 164/107 09/10/22 06:47 Pulse Ox 98 09/10/22 06:47 FiO2 Intake & Output 09/09/22 09/10/22 09/10/22 18:59 06:59 18:59 Intake Total 950 Balance 950 Intake: Oral 950 Other: Voiding Method Toilet Toilet # Voids 2 4 - Constitutional General appearance: Present: cooperative, no acute distress - EENT Eyes: Present: anicteric sclerae - Respiratory Respiratory: bilateral: CTA - Cardiovascular Rhythm: regular - Gastrointestinal Gastrointestinal Comment(s): Appropriately TTP, elisabeth in place. General gastrointestinal: Present: soft. Absent: distended, rigid - Neurologic Neurologic Comment(s): No gross deficits. - Psychiatric Psychiatric: Present: appropriate affect - Labs CBC & Chem 7: 09/09/22 03:31 09/10/22 05:52 Labs: Abnormal Lab Results - Last 24 Hours (Table) 09/09/22 09/09/22 09/09/22 Range/Units 03:31 03:31 03:31 RBC 2.98 L (4.40-5.60) X 10*6/uL Hgb 10.0 L (13.0-17.0) g/dL Hct 30.7 L (39.6-50.0) % MCV 103.0 H (80.0-97.0) fL MCH 33.6 H (27.0-32.0) pg Immature Gran # 0.07 H (0.00-0.04) X 10*3/uL Lymphocytes # 0.78 L (0.90-5.00) X 10*3/uL Monocytes # 1.04 H (0.20-1.00) X 10*3/uL Sodium 134 L (135-145) mmol/L Potassium 2.9 L (3.5-5.5) mmol/L Chloride (98-107) mmol/L Carbon Dioxide 18.3 L (20.0-27.5) mmol/L BUN 6.8 L (9.0-27.0) mg/dL BUN/Creatinine Ratio 7.39 L (12.00-20.00) Ratio Calcium 7.5 L (8.7-10.3) mg/dL C-Reactive Protein 19.20 H (0.00-0.80) mg/dL Total Protein 5.8 L (6.2-8.2) g/dL Albumin 3.2 L (3.8-4.9) g/dL Albumin/Globulin Ratio 1.21 L (1.60-3.17) g/dL Procalcitonin 1.09 H (0.02-0.09) ng/mL 09/10/22 Range/Units 05:52 RBC (4.40-5.60) X 10*6/uL Hgb (13.0-17.0) g/dL Hct (39.6-50.0) % MCV (80.0-97.0) fL MCH (27.0-32.0) pg Immature Gran # (0.00-0.04) X 10*3/uL Lymphocytes # (0.90-5.00) X 10*3/uL Monocytes # (0.20-1.00) X 10*3/uL Sodium 136 L (135-145) mmol/L Potassium 2.9 L (3.5-5.5) mmol/L Chloride 111 H (98-107) mmol/L Carbon Dioxide 19 L (20.0-27.5) mmol/L BUN 4 L (9.0-27.0) mg/dL BUN/Creatinine Ratio (12.00-20.00) Ratio Calcium 7.5 L (8.7-10.3) mg/dL C-Reactive Protein (0.00-0.80) mg/dL Total Protein (6.2-8.2) g/dL Albumin (3.8-4.9) g/dL Albumin/Globulin Ratio (1.60-3.17) g/dL Procalcitonin (0.02-0.09) ng/mL Microbiology - Last 24 Hours (Table) 09/08/22 05:52 Blood Culture - Preliminary Blood No Growth after 48 hours 09/04/22 15:31 Blood Culture - Preliminary Blood No Growth after 120 hours Assessment and Plan Assessment: Abdominal pain with signs of peritonitis Foci of pneumoperitoneum on CT S/P colonoscopy with polypectomy 09/03 ([facility]) S/P diagnostic laparoscopy converted to open laparotomy with oversew of pinpoint perforation 09/04 Right pneumonia, new Plan: Tolerating diet, advanced to regular today. OK to saline/hep lock IVF once tolerating PO. AM labs ordered. Home electrolytes re-started. Discussion regarding importance of ambulating & getting out of bedd. Discussed regimented PO pain schedule; limit dilaudid in hopes of transitioning to outpatient regimen. Anticipate discharge over weekend if electrolytes are controlled. Appreciate medical consultation & input. Dr. Reyna to cover Wednesday - Wednesday.
--- NOTE | 2022-09-10 19:28 | P.PN ---
Progress Note - Text Progress Note Date: 09/10/22 - Chief Complaint Abdominal pain Hospital course This is a pleasant 41-year-old patient who is from out of town. Chronic stable medical conditions include gout, hypertension, anxiety and chronic pain for which he takes Neurontin. Patient yesterday underwent colonoscopy in [facility]. Polyp was removed.. Following that patient drove up to [place] on with his girlfriend. Yesterday evening started having increasing abdominal pain. Started becoming uncomfortable. Nausea. Decided to come to the ER. Computed tomography scan the ER showed limited pneumoperitoneum. Single surgical clip was noted in the mid sigmoid colon. Fat stranding and wall thickening involving the sigmoid colon was also noted. underwent laparotomy with oversew of the pinpoint perforation by . She did notice some spillage of stool in the abdomen. Today patient has NG tube to suction. Having abdominal pain. No flatus. On IV Zosyn. Patient is also noted to have a cirrhotic liver. 09/06/2022: NG tube discontinued. Started on clear liquids. Minimal flatus. Results of ultrasound liver discussed. Patient did confirm that he drank heavily for 3-4 years. Not prior to that. Following his divorce. He will follow-up with a materials handling equipment operator in [address]. Abdominal pain. On IV Zosyn and Flagyl. September 07: had some loose BM. NG tube discontinued. Started on clear liquids. Asked sit up in a chair. Abdominal pain. Having low-grade fever. On IV Zosyn and Flagyl. September 08: Barely eating. On clear liquid diet. Abdominal pain persist. No nausea vomiting. Spiked fever this morning. ID consulted. On IV Zosyn and Fla gyl. Had some loose stools. September 09: Remains on clear liquid diet. Some decrease in bowel pain. Some diarrhea. Fever has come down. There is on IV Flagyl and IV Zosyn. IV fluids. Computed tomography scan done yesterday showed some ascites. Some question about large bowel ileus. Chest CTA was negative for PE. September 10: No fever. Feeling better. Some liquid stool. Replace potassium. Continue with IV Flagyl and IV Zosyn. Feeling better. Active Medications Allopurinol (Allopurinol 100 Mg Tab) 200 mg PO DAILY [facility] Last Admin: 09/10/22 08:50 Dose: 200 mg Benzocaine (Benzocaine [place] 1 Can) 1 spray MUCOUS MEM QID PRN; Protocol PRN Reason: Mouth Irritation Last Admin: 09/05/22 20:08 Dose: 1 spray Calcitriol (Calcitriol 0.25 Mcg Cap) 0.25 mcg PO DAILY [facility] Last Admin: 09/10/22 08:51 Dose: 0.25 mcg Calcium Carbonate/Glycine (Calcium Carbonate 500 Mg Chewable) 1,000 mg PO BID [facility] Last Admin: 09/10/22 08:50 Dose: 1,000 mg Cyclobenzaprine HCl (Cyclobenzaprine 5 Mg Tab) 5 mg PO TID [facility] Last Admin: 09/10/22 16:25 Dose: 5 mg Enoxaparin Sodium (Enoxaparin 40 Mg/0.4 Ml Syringe) 40 mg SQ DAILY [facility] Last Admin: 09/10/22 08:50 Dose: 40 mg Gabapentin (Gabapentin 300 Mg Cap) 300 mg PO BID [facility] Last Admin: 09/10/22 08:50 Dose: 300 mg Hydromorphone HCl (Hydromorphone 1 Mg/Ml 1 Ml Syringe) 1 mg IVP Q3HR PRN PRN Reason: Severe Pain (Scale 7 to 10) Last Admin: 09/10/22 18:27 Dose: 1 mg Piperacillin Sod/Tazobactam (Sod 3.375 gm/ Sodium Chloride) 100 mls @ 25 mls/hr IVPB Q8H [facility]; Protocol Last Admin: 09/10/22 11:15 Dose: 25 mls/hr Metronidazole 500 mg/ IV (Solution) 100 mls @ 100 mls/hr IVPB Q8HR [facility]; Protocol Last Admin: 09/10/22 16:25 Dose: 100 mls/hr Sodium Chloride (Saline 0.9%) 1,000 mls @ 75 mls/hr IV .[id number] [facility] Last Admin: 09/10/22 13:48 Dose: 75 mls/hr Ketorolac Tromethamine (Ketorolac 15 Mg/Ml 1 Ml Vial) 15 mg IVP Q6HR PRN PRN Reason: mild pain Stop: 09/11/22 19:47 Last Admin: 09/09/22 23:52 Dose: 15 mg Lisinopril (Lisinopril 20 Mg Tab) 20 mg PO DAILY [facility] Last Admin: 09/10/22 08:50 Dose: 20 mg Magnesium Oxide (Magnesium Oxide 400 Mg Tab) 400 mg PO BID [facility] Last Admin: 09/10/22 08:49 Dose: 400 mg Naloxone HCl (Naloxone 0.4 Mg/Ml 1 Ml Vial) 0.2 mg IV Q2M PRN PRN Reason: Opioid Reversal Ondansetron HCl (Ondansetron 4 Mg/2 Ml Vial) 4 mg IVP Q8HR PRN PRN Reason: Nausea And Vomiting Last Admin: 09/04/22 19:46 Dose: 4 mg Pantoprazole Sodium (Pantoprazole 40 Mg/10 Ml Vial) 40 mg IV DAILY [facility] Last Admin: 09/10/22 08:50 Dose: 40 mg Potassium Chloride (Potassium Chloride Er 10 Meq Tab.Er.Prt) 30 meq PO BID [facility] Last Admin: 09/10/22 08:49 Dose: 30 meq Tramadol HCl (Tramadol 50 Mg Tab) 50 mg PO QID PRN PRN Reason: Mild to Moderate Pain (1 - 6) Last Admin: 09/10/22 14:03 Dose: 50 mg Past medical history to include: Hypertension, gout, chronic pain Social history: Works at [employer]. Alcohol rarely. Smoking. Does use marijuana Physical examination: VITAL SIGNS: Afebrile, 83, 15, 09/11/1983, 99% room air GENERAL: Laying in bed, comfortable EYES: Pupils equal. Conjunctiva normal. HEENT: External appearance of nose and ears normal, oral cavity grossly normal. NG tube discontinued NECK: JVD not raised; masses not palpable. HEART: First and second heart sounds are normal; no edema. LUNGS: Respiratory rate normal; clear to auscultation. ABDOMEN: Soft, mild tender, no guarding rigidity, dressing over the midline incision, liver spleen not palpable, no masses palpable. PSYCH: Alert and oriented x3; mood and affect anxiousl. INVESTIGATIONS, reviewed in the clinical context: September 10: Potassium 2.9 September 09: White count 5.1 hemoglobin 10 potassium 2.9 creatinine 0.9 Computed tomography scan abdomen [September 08]: Some ascites. Questions large bowel ileus Chest CTA [September 08]: Negative for PE Liver ultrasound: Contracted gallbladder with single small gallstone. Liver grossly normal reported. 09/06/2022: White count 6.9 hemoglobin 9.1 platelets 143 progression 3.7 creatinine 1.1 Hepatitis B surface antigen/hepatitis B surface antibody/hepatitis B core total antibody: Nonreactive White count 6.5 hemoglobin 13.4 platelets 174 sodium 134 potassium 5.4 creatinine 1.19 Lactic acid 2.4 AST 124 ALT 90 Influenza type A/type B/RSV/COVID-19: Not detected EKG tracing personally reviewed by me-normal sinus rhythm Assessment and plan: -Acute microperforation of the colon following removal of large polyp at an outside facility.oversew of the microperforation. Surgeon:Dr Church. clear liquid diet. -Secondary peritonitis secondary to stool overspill, having low-grade fever: Improving IV Zosyn. IV Flagyl. -Cirrhosis discovered during surgery Abdominal ultrasound nonspecific.. Results discussed with the patient. He'll follow-up with a materials handling equipment operator in [place] [address] upon return. -Chronic gout Allopurinol -Essential hypertension Zestril -Chronic pain Neurontin -Hypoalbuminemia Replace -Severe hypokalemia from diarrhea: Slow to respond Aggressive replacement of potassium replace potassium. Continue with IV Zosyn and IV Flagyl. Increase activity. Better.
[2022-09-10] MEDS: KETOROLAC 15 MG/ML 1 ML VIAL IVP PRN (20:30)
[2022-09-11] MEDS: metroNIDAZOLE-NS PMX 500 MG in SALINE 1 100ML.BAG IVPB SCH ×3 (00:01→17:47)
[2022-09-11] MEDS: HYDROmorphone 1 MG/ML 1 ML SYRINGE IVP PRN ×6 (01:16→21:21)
[2022-09-11] MEDS: SODIUM CHLORIDE 0.9% 1,000 ML IV SCH ×2 (02:00→13:23)
[2022-09-11] MEDS: PIPERACILLIN-TAZOBACTAM 3.375 GM in SODIUM CHLORIDE 0.9% 100 ML IVPB SCH ×3 (04:22→21:20)
[2022-09-11] MEDS: allopurinoL 100 MG TAB PO SCH (08:55)
[2022-09-11] MEDS: lisinopriL 20 MG TAB PO SCH (08:56)
[2022-09-11] MEDS: POTASSIUM CHLORIDE ER 10 MEQ TAB.ER.PRT PO SCH ×2 (08:56→20:00)
[2022-09-11] MEDS: GABAPENTIN 300 MG CAP PO SCH ×2 (08:56→21:19)
[2022-09-11] MEDS: MAGNESIUM OXIDE 400 MG TAB PO SCH ×2 (08:56→21:19)
[2022-09-11] MEDS: CYCLOBENZAPRINE 5 MG TAB PO SCH ×3 (08:56→22:41)
[2022-09-11] MEDS: ENOXAPARIN 40 MG/0.4 ML SYRINGE SQ SCH (08:57)
[2022-09-11] MEDS: CALCIUM CARBONATE 500 MG CHEWABLE PO SCH ×2 (09:25→21:19)
[2022-09-11] MEDS: PANTOPRAZOLE 40 MG/10 ML VIAL IV SCH (09:25)
[2022-09-11 13:29] LABS: African American GFR (CKD) >90 (>60 ml/min/1.73 sqM); Anion Gap 7 mmol/L; Blood Urea Nitrogen 2 mg/dL (9-20); Calcium 7.5 mg/dL (8.4-10.2); Carbon Dioxide 22 mmol/L (22-30); Chloride 107 mmol/L (98-107); Glucose 118 mg/dL (74-99); Non-African American GFR(CKD) >90 (>60 ml/min/1.73 sqM); Potassium 3.3 mmol/L (3.5-5.1); Sodium 136 mmol/L (137-145)
[2022-09-11] MEDS ORDERED: POTASSIUM CHLORIDE ER 20 MEQ TAB.ER PO STA (14:47)
--- NOTE | 2022-09-11 14:48 | P.PN ---
Progress Note - Text Progress Note Date: 09/11/22 - Chief Complaint Abdominal pain Hospital course This is a pleasant 41-year-old patient who is from out of town. Chronic stable medical conditions include gout, hypertension, anxiety and chronic pain for which he takes Neurontin. Patient yesterday underwent colonoscopy in [facility] [place]. Polyp was removed.. Following that patient drove up to [place] on with his girlfriend. Yesterday evening started having increasing abdominal pain. Started becoming uncomfortable. Nausea. Decided to come to the ER. Computed tomography scan the ER showed limited pneumoperitoneum. Single surgical clip was noted in the mid sigmoid colon. Fat stranding and wall thickening involving the sigmoid colon was also noted. underwent laparotomy with oversew of the pinpoint perforation by . She did notice some spillage of stool in the abdomen. Today patient has NG tube to suction. Having abdominal pain. No flatus. On IV Zosyn. Patient is also noted to have a cirrhotic liver. 09/06/2022: NG tube discontinued. Started on clear liquids. Minimal flatus. Results of ultrasound liver discussed. Patient did confirm that he drank heavily for 3-4 years. Not prior to that. Following his divorce. He will follow-up with a substance abuse specialist in [place]. Abdominal pain. On IV Zosyn and Flagyl. September 07: had some loose BM. NG tube discontinued. Started on clear liquids. Asked sit up in a chair. Abdominal pain. Having low-grade fever. On IV Zosyn and Flagyl. September 08: Barely eating. On clear liquid diet. Abdominal pain persist. No nausea vomiting. Spiked fever this morning. ID consulted. On IV Zosyn and Fla gyl. Had some loose stools. September 09: Remains on clear liquid diet. Some decrease in bowel pain. Some diarrhea. Fever has come down. There is on IV Flagyl and IV Zosyn. IV fluids. Computed tomography scan done yesterday showed some ascites. Some question about large bowel ileus. Chest CTA was negative for PE. September 10: No fever. Feeling better. Some liquid stool. Replace potassium. Continue with IV Flagyl and IV Zosyn. Feeling better. September 11: Had half a sandwich earlier today. Some loose stool. Slight abdominal distention. No nausea vomiting. On IV Flagyl and Zosyn. Does feel better. No fever. Patient did ambulate. In the room Active Medications Allopurinol (Allopurinol 100 Mg Tab) 200 mg PO DAILY [facility] Last Admin: 09/11/22 08:55 Dose: 200 mg Benzocaine (Benzocaine [place] 1 Can) 1 spray MUCOUS MEM QID PRN; Protocol PRN Reason: Mouth Irritation Last Admin: 09/05/22 20:08 Dose: 1 spray Calcitriol (Calcitriol 0.25 Mcg Cap) 0.25 mcg PO DAILY [facility] Last Admin: 09/11/22 08:57 Dose: 0.25 mcg Calcium Carbonate/Glycine (Calcium Carbonate 500 Mg Chewable) 1,000 mg PO BID [facility] Last Admin: 09/11/22 09:25 Dose: 1,000 mg Cyclobenzaprine HCl (Cyclobenzaprine 5 Mg Tab) 5 mg PO TID [facility] Last Admin: 09/11/22 08:56 Dose: 5 mg Enoxaparin Sodium (Enoxaparin 40 Mg/0.4 Ml Syringe) 40 mg SQ DAILY [facility] Last Admin: 09/11/22 08:57 Dose: 40 mg Gabapentin (Gabapentin 300 Mg Cap) 300 mg PO BID [facility] Last Admin: 09/11/22 08:56 Dose: 300 mg Hydromorphone HCl (Hydromorphone 1 Mg/Ml 1 Ml Syringe) 1 mg IVP Q3HR PRN PRN Reason: Severe Pain (Scale 7 to 10) Last Admin: 09/11/22 13:20 Dose: 1 mg Piperacillin Sod/Tazobactam (Sod 3.375 gm/ Sodium Chloride) 100 mls @ 25 mls/hr IVPB Q8H [facility]; Protocol Last Admin: 09/11/22 13:22 Dose: 25 mls/hr Metronidazole 500 mg/ IV (Solution) 100 mls @ 100 mls/hr IVPB Q8HR [facility]; Protocol Last Admin: 09/11/22 09:03 Dose: 100 mls/hr Sodium Chloride (Saline 0.9%) 1,000 mls @ 75 mls/hr IV .[id number] [facility] Last Admin: 09/11/22 13:23 Dose: 75 mls/hr Ketorolac Tromethamine (Ketorolac 15 Mg/Ml 1 Ml Vial) 15 mg IVP Q6HR PRN PRN Reason: mild pain Stop: 09/11/22 19:47 Last Admin: 09/10/22 20:30 Dose: 15 mg Lisinopril (Lisinopril 20 Mg Tab) 20 mg PO DAILY [facility] Last Admin: 09/11/22 08:56 Dose: 20 mg Magnesium Oxide (Magnesium Oxide 400 Mg Tab) 400 mg PO BID [facility] Last Admin: 09/11/22 08:56 Dose: 400 mg Naloxone HCl (Naloxone 0.4 Mg/Ml 1 Ml Vial) 0.2 mg IV Q2M PRN PRN Reason: Opioid Reversal Ondansetron HCl (Ondansetron 4 Mg/2 Ml Vial) 4 mg IVP Q8HR PRN PRN Reason: Nausea And Vomiting Last Admin: 09/04/22 19:46 Dose: 4 mg Pantoprazole Sodium (Pantoprazole 40 Mg/10 Ml Vial) 40 mg IV DAILY [facility] Last Admin: 09/11/22 09:25 Dose: 40 mg Potassium Chloride (Potassium Chloride Er 10 Meq Tab.Er.Prt) 30 meq PO BID [facility] Last Admin: 09/11/22 08:56 Dose: 30 meq Potassium Chloride (Potassium Chloride Er 20 Meq Tab.Er) 40 meq PO ONCE STA Stop: 09/11/22 14:48 Tramadol HCl (Tramadol 50 Mg Tab) 50 mg PO QID PRN PRN Reason: Mild to Moderate Pain (1 - 6) Last Admin: 09/10/22 14:03 Dose: 50 mg Past medical history to include: Hypertension, gout, chronic pain Social history: Works at [employer]. Alcohol rarely. Smoking. Does use marijuana Physical examination: VITAL SIGNS: 98.2, 95, 18, 135/84, 98% room air GENERAL: Declining, appearing better EYES: Pupils equal. Conjunctiva normal. HEENT: External appearance of nose and ears normal, oral cavity grossly normal. NG tube discontinued NECK: JVD not raised; masses not palpable. HEART: First and second heart sounds are normal; no edema. LUNGS: Respiratory rate normal; clear to auscultation. ABDOMEN: Soft, mild tender, no guarding rigidity, dressing over the midline incision, liver spleen not palpable, no masses palpable. PSYCH: Alert and oriented x3; mood and affect anxiousl. INVESTIGATIONS, reviewed in the clinical context: September 11: Potassium 3.3 creatinine 0.71 September 10: Potassium 2.9 September 09: White count 5.1 hemoglobin 10 potassium 2.9 creatinine 0.9 Computed tomography scan abdomen [September 08]: Some ascites. Questions large bowel ileus Chest CTA [September 08]: Negative for PE Liver ultrasound: Contracted gallbladder with single small gallstone. Liver grossly normal reported. 09/06/2022: White count 6.9 hemoglobin 9.1 platelets 143 progression 3.7 cr eatinine 1.1 Hepatitis B surface antigen/hepatitis B surface antibody/hepatitis B core total antibody: Nonreactive White count 6.5 hemoglobin 13.4 platelets 174 sodium 134 potassium 5.4 creatinine 1.19 Lactic acid 2.4 AST 124 ALT 90 Influenza type A/type B/RSV/COVID-19: Not detected EKG tracing personally reviewed by me-normal sinus rhythm Assessment and plan: -Acute microperforation of the colon following removal of large polyp at an outside facility.oversew of the microperforation. Surgeon:Dr Church. Regular diet. -Secondary peritonitis secondary to stool overspill, having low-grade fever: Improving IV Zosyn. IV Flagyl. -Cirrhosis discovered during surgery Abdominal ultrasound nonspecific.. Results discussed with the patient. He'll follow-up with a substance abuse specialist in [place] upon return. -Chronic gout Allopurinol -Essential hypertension Zestril -Chronic pain Neurontin -Hypoalbuminemia Replace -Severe hypokalemia from diarrhea: Better Aggressive replacement of potassium Continue antibiotics. Increase activity. Diet has been advanced. Hopefully discharge home tomorrow.
[2022-09-11] MEDS: traMADol 50 MG TAB PO PRN (15:13)
--- NOTE | 2022-09-11 22:43 | P.PN ---
Subjective Progress Note Date: 09/11/22 Principal diagnosis: Postop fever Patient is a 41-year-old male who did have a screening colonoscopy done at [facility] on 09/03/2022 patient mention he did have 2 polyps removed , subsequently developing abdominal pain presenting to the ER CT of abdominal pelvis concerning for perforation of the sigmoid colon patient was taken to the OR status post laparotomy with overseeing of pinpoint perforation, did have a postop fever. On today's evaluation is 09/11/2022, the patient remains to be afebrile, the patient is breathing comfortably on room air, the patient abdominal pain has decreased in intensity down to about 7 out of 10 and patient denies having any nausea or vomiting has been tolerating his clear liquid diet and did have some loose stools Objective - Vital Signs Vital signs: Vital Signs Temp 98.2 F 09/11/22 07:51 Pulse 120 H 09/11/22 07:51 Resp 16 09/11/22 09:29 BP 145/83 09/11/22 07:51 Pulse Ox 97 09/11/22 00:40 FiO2 Intake & Output 09/10/22 09/11/22 09/11/22 18:59 06:59 18:59 Intake Total 500 Output Total 300 1100 1100 Balance -300 -1100 -600 Weight 83.915 kg Intake: Oral 500 Output: Urine 300 1100 1100 Other: Voiding Method Toilet # Voids 1 1 - Exam GENERAL DESCRIPTION: An elderly male lying in bed in no distress RESPIRATORY SYSTEM: Unlabored breathing , decreased breath sounds at bases HEART: S1 S2 regular rate and rhythm , ABDOMEN: Soft , mild distention and tenderness EXTREMITIES: No edema feet - Labs CBC & Chem 7: 09/09/22 03:31 09/11/22 12:35 Labs: Microbiology - Last 24 Hours (Table) 09/08/22 05:52 Blood Culture - Preliminary Blood No Growth after 72 hours 09/04/22 15:31 Blood Culture - Final Blood No Growth after 144 hours 09/09/22 13:29 Blood Culture - Preliminary Blood No Growth after 24 hours Assessment and Plan (1) Postoperative fever Current Visit: Yes Status: Acute Code(s): R50.82 - POSTPROCEDURAL FEVER SNOMED Code(s): 176874586 (2) Postoperative abdominal pain with fever Current Visit: Yes Status: Acute Code(s): R10.9 - UNSPECIFIED ABDOMINAL PAIN; R50.82 - POSTPROCEDURAL FEVER; G89.18 - OTHER ACUTE POSTPROCEDURAL PAIN SNOMED Code(s): 23844878 Plan: 1patient with a postoperative fever in this patient who did have a recent colo noscopy done at the [facility] and subsequently presented to hospital with abdominal pain started a few hours after procedure and did have evidence of pinpoint perforation of the sigmoid colon status post laparotomy and oversewing of the perforation, there was a documentation of spillage of the sigmoid colon contained into the peritoneal cavity, however no OR cultures available blood culture has been negative so far patient did have a normal white count and does not look toxic. We need to cover for the enteric gram-negative both anaerobes and anaerobes, patient did have a CT angiogram of the chest was negative for PE CT of abdominal pelvis tissue some free but no mention of any abscess. 2the patient fever has resolved and the white count has been normal , patient seemed to showing clinical improvement and will continue patient on Zosyn and monitor clinical course closely Time with Patient: Less than 30
[2022-09-12] MEDS: metroNIDAZOLE-NS PMX 500 MG in SALINE 1 100ML.BAG IVPB SCH ×2 (01:18→09:39)
[2022-09-12] MEDS: HYDROmorphone 1 MG/ML 1 ML SYRINGE IVP PRN ×3 (01:18→14:18)
[2022-09-12] MEDS: PIPERACILLIN-TAZOBACTAM 3.375 GM in SODIUM CHLORIDE 0.9% 100 ML IVPB SCH (04:05)
[2022-09-12] MEDS: SODIUM CHLORIDE 0.9% 1,000 ML IV SCH (04:05)
[2022-09-12 07:50] VITALS: RESP 18
[2022-09-12] MEDS: GABAPENTIN 300 MG CAP PO SCH (09:38)
[2022-09-12] MEDS: lisinopriL 20 MG TAB PO SCH (09:38)
[2022-09-12] MEDS: CYCLOBENZAPRINE 5 MG TAB PO SCH (09:38)
[2022-09-12] MEDS: POTASSIUM CHLORIDE ER 10 MEQ TAB.ER.PRT PO SCH (09:38)
[2022-09-12] MEDS: MAGNESIUM OXIDE 400 MG TAB PO SCH (09:38)
[2022-09-12] MEDS: allopurinoL 100 MG TAB PO SCH (09:38)
[2022-09-12] MEDS: ENOXAPARIN 40 MG/0.4 ML SYRINGE SQ SCH (09:39)
[2022-09-12] MEDS: CALCIUM CARBONATE 500 MG CHEWABLE PO SCH (09:39)
[2022-09-12] MEDS: PANTOPRAZOLE 40 MG/10 ML VIAL IV SCH (09:40)
[2022-09-12] MEDS: traMADol 50 MG TAB PO PRN (11:10)
[2022-09-12 13:47] VITALS: BP 151/99; PULSE 98; TEMP 98.3
--- NOTE | 2022-09-12 15:24 | P.PN ---
Subjective Progress Note Date: 09/12/22 Principal diagnosis: Perforation of sigmoid colon Objective - Vital Signs Vital signs: Vital Signs Temp 98.3 F 09/12/22 13:18 Pulse 98 09/12/22 13:18 Resp 18 09/12/22 13:18 BP 151/99 09/12/22 13:18 Pulse Ox 97 09/12/22 13:18 FiO2 Intake & Output 09/11/22 09/12/22 09/12/22 18:59 06:59 18:59 Intake Total 1000 Output Total 3400 Balance -2400 Intake: Oral 1000 Output: Urine 3400 Other: Voiding Method Toilet Toilet # Voids 1 3 1 # Bowel Movements 1 - Constitutional General appearance: Present: average body habitus - Gastrointestinal Gastrointestinal Comment(s): Incisions clean dry and intact he has bowel sounds and has flatus. No erythema or drainage. - Labs CBC & Chem 7: 09/09/22 03:31 09/11/22 12:35 Labs: Microbiology - Last 24 Hours (Table) 09/08/22 05:52 Blood Culture - Preliminary Blood No Growth after 96 hours 09/09/22 13:29 Blood Culture - Preliminary Blood No Growth after 48 hours Assessment and Plan Assessment: Postoperative day #8 after perforation related to colonoscopy and polypectomy (1) Pneumoperitoneum Current Visit: Yes Status: Acute Code(s): K66.8 - OTHER SPECIFIED DISORDERS OF PERITONEUM SNOMED Code(s): 50945963 Plan: Okay to [place] home today
--- NOTE | 2022-09-12 15:44 | P.DS ---
Providers Date of admission: 09/04/22 18:55 Attending physician: Sylwia Sapp, Consults: 09/04/22 18:57 Consult Physician Routine Consulting Provider: Tod Jeffery Consult Reason/Comments: medicine consult Do you want consulting provider notified?: Yes 09/08/22 12:43 Consult Physician Routine Consulting Provider: Anthony Cunningham Consult Reason/Comments: persistent fever Do you want consulting provider notified?: Yes Primary care physician: Stated None - Discharge Diagnosis(es) (1) Pneumoperitoneum Current Visit: Yes Status: Acute Priority: Medium Hospital Course: Patient presented with a perforation after polypectomy and eventually went to surgery who where this was started laparoscopically then converted to open. This was oversewn and the patient got better. He was in the hospital about 8 days and was discharged home today 09/12/2022 date of admission was 09/04/2022. His incision was clean dry and intact and he had a routine postoperative course which was a bit slow due to her ileus but ultimately he was discharged home. Assessment: Patient was stable at discharge Health Concerns: No immediate health concerns. Pertinent Studies: Pertinent studies include the free year that was seen and ultimately this was due to a microperforation after colonoscopy and polypectomy and this was oversewn and the patient did well. Procedures: Laparoscopic converted to open laparotomy. Patient had an oversew of a microperforation. Patient Condition at Discharge: Good Plan - Discharge Summary Discharge Rx Participant: Yes New Discharge Prescriptions: New oxyCODONE ER [OxyCONTIN] 5 mg PO Q12HR 3 Days #20 tab No Action Potassium Chloride [Potassium Chloride ER] 30 meq PO BID lisinopriL [Zestril] 20 mg PO DAILY hydrOXYzine HCL [Atarax] 25 mg PO TID PRN PRN Reason: Anxiety Multivitamins, Thera [Multivitamin (formulary)] 1 tab PO DAILY Magnesium Oxide [Mag-Ox] 400 mg PO BID calcitrioL [Calcitriol] 0.25 mcg PO DAILY allopurinoL [Zyloprim] 200 mg PO DAILY Gabapentin [Neurontin] 300 mg PO BID Calcium Carbonate [Tums] 1,000 mg PO BID Sildenafil Citrate 50 mg PO DAILY PRN PRN Reason: E.D Discharge Medication List Calcium Carbonate [Tums] 1,000 mg PO BID 09/04/22 [History] Gabapentin [Neurontin] 300 mg PO BID 09/04/22 [History] Magnesium Oxide [Mag-Ox] 400 mg PO BID 09/04/22 [History] Multivitamins, Thera [Multivitamin (formulary)] 1 tab PO DAILY 09/04/22 [History] Potassium Chloride [Potassium Chloride ER] 30 meq PO BID 09/04/22 [History] Sildenafil Citrate 50 mg PO DAILY PRN 09/04/22 [History] allopurinoL [Zyloprim] 200 mg PO DAILY 09/04/22 [History] calcitrioL [Calcitriol] 0.25 mcg PO DAILY 09/04/22 [History] hydrOXYzine HCL [Atarax] 25 mg PO TID PRN 09/04/22 [History] lisinopriL [Zestril] 20 mg PO DAILY 09/04/22 [History] oxyCODONE ER [OxyCONTIN] 5 mg PO Q12HR 3 Days #20 tab 09/12/22 [Rx] Follow up Appointment(s)/Referral(s): Sylwia Sapp DO [Doctor of Osteopathic Medicine] - 1 Week None,Stated [Primary Care Provider] - 1-2 days Patient Instructions/Handouts: Perforated Bowel (DC), Bowel Resection (DC) Activity/Diet/Wound Care/Special Instructions: Ok to shower No heavy lifting; 20 pounds for 2 weeks. Resume home medications. Discharge Disposition: HOME SELF-CARE Plan of Treatment: follow up in the office
--- NOTE | 2022-09-12 17:25 | P.PN ---
Subjective Progress Note Date: 09/12/22 Principal diagnosis: Postop fever Patient is a 41-year-old male who did have a screening colonoscopy done at [facility] on 09/03/2022 patient mention he did have 2 polyps removed , subsequently developing abdominal pain presenting to the ER CT of abdominal pelvis concerning for perforation of the sigmoid colon patient was taken to the OR status post laparotomy with overseeing of pinpoint perforation, did have a postop fever. On today's evaluation is 09/12/2022, the patient denies any fever or any chills, the patient is breathing comfortably on room air, the patient abdominal pain has decreased in intensity and controlled with the current medication, patient denies having any nausea or vomiting has been tolerating his diet and overall feeling better Objective - Vital Signs Vital signs: Vital Signs Temp 98.9 F 09/12/22 07:04 Pulse 99 09/12/22 07:04 Resp 18 09/12/22 07:04 BP 155/96 09/12/22 07:04 Pulse Ox 96 09/12/22 07:04 FiO2 Intake & Output 09/11/22 09/12/22 09/12/22 18:59 06:59 18:59 Intake Total 1000 Output Total 3400 Balance -2400 Intake: Oral 1000 Output: Urine 3400 Other: Voiding Method Toilet Toilet # Voids 1 3 1 # Bowel Movements 1 - Exam GENERAL DESCRIPTION: An elderly male lying in bed in no distress RESPIRATORY SYSTEM: Unlabored breathing , decreased breath sounds at bases HEART: S1 S2 regular rate and rhythm , ABDOMEN: Soft , mild distention but not as tender EXTREMITIES: No edema feet - Labs CBC & Chem 7: 09/09/22 03:31 09/11/22 12:35 Labs: Abnormal Lab Results - Last 24 Hours (Table) 09/11/22 Range/Units 12:35 Sodium 136 L (137-145) mmol/L Potassium 3.3 L (3.5-5.1) mmol/L BUN 2 L (9-20) mg/dL Glucose 118 H (74-99) mg/dL Calcium 7.5 L (8.4-10.2) mg/dL Microbiology - Last 24 Hours (Table) 09/08/22 05:52 Blood Culture - Preliminary Blood No Growth after 96 hours 09/09/22 13:29 Blood Culture - Preliminary Blood No Growth after 48 hours Assessment and Plan (1) Postoperative fever Status: Acute Code(s): R50.82 - POSTPROCEDURAL FEVER SNOMED Code(s): 397231570 (2) Postoperative abdominal pain with fever Status: Acute Code(s): R10.9 - UNSPECIFIED ABDOMINAL PAIN; R50.82 - POSTPROCEDURAL FEVER; G89.18 - OTHER ACUTE POSTPROCEDURAL PAIN SNOMED Code(s): 48820576 Plan: 1patient with a postoperative fever in this patient who did have a recent colonoscopy done at the [facility] and subsequently presented to hospital with abdominal pain started a few hours after procedure and did have evidence of pinpoint perforation of the sigmoid colon status post laparotomy and oversewing of the perforation, there was a documentation of spillage of the sigmoid colon contained into the peritoneal cavity, however no OR cultures available blood c ulture has been negative so far patient did have a normal white count and does not look toxic. We need to cover for the enteric gram-negative both anaerobes and anaerobes, patient did have a CT angiogram of the chest was negative for PE CT of abdominal pelvis tissue some free but no mention of any abscess. 2the patient fever has resolved and the white count has been normal , patient to continue with the Zosyn while inpatient hopefully finishing therapy with oral antibiotic once cleared by surgery for discharge Time with Patient: Less than 30
--- NOTE | 2022-09-12 17:55 | PN ---
PROGRESS NOTE DATE OF SERVICE: 09/12/2022 SUBJECTIVE: This is a 41-year-old gentleman, who was admitted with colon perforation and peritonitis, had surgery. No chest pain. No palpitations. No fever. Surgery is planning discharge today. PHYSICAL EXAMINATION: VITAL SIGNS: Pulse 98, blood pressure 150/90, respiration 18. CHEST: Clear to auscultation. CARDIOVASCULAR: S1 and S2. ABDOMEN: Soft. Status post surgery. LABORATORY DATA: Reviewed. ASSESSMENT: 1. Status post surgery for chronic microperforation. 2. Secondary peritonitis. 3. Cirrhosis. 4. Chronic gout. 5. Multiple medical issues. RECOMMENDATIONS: Recommended to continue current medications, symptomatic treatment. Otherwise, I recommend continuing with outpatient antibiotics and follow with the primary physician closely after discharge and rest of the recommendations per Surgery. Further recommendations to follow. MMODL / IJN: [id number] /
== END 2022-09-12 17:02 | disposition home or self-care (01) | DRG 329 ==
LOC: EC 14:53 → 4SSUR 18:55
PROVIDERS: ADMIT Surgery; ATTEND Surgery
PROC: 0DQN0ZZ Repair Sigmoid Colon, Open Approach (ICD-10-PCS; principal; 2022-09-04 19:45)
DX: K63.1 Perforation of intestine (nontraumatic) (principal); K65.9 Peritonitis, unspecified; E87.20 Acidosis, unspecified; R18.8 Other ascites; K56.7 Ileus, unspecified; K57.32 Diverticulitis of large intestine without perforation or abscess without bleeding; K91.89 Other postprocedural complications and disorders of digestive system; K66.8 Other specified disorders of peritoneum; E88.09 Other disorders of plasma-protein metabolism, not elsewhere classified; K74.60 Unspecified cirrhosis of liver; I10 Essential (primary) hypertension; G89.29 Other chronic pain; M1A.9XX0 Chronic gout, unspecified, without tophus (tophi); G89.18 Other acute postprocedural pain; F41.9 Anxiety disorder, unspecified; E87.6 Hypokalemia; Z53.31 Laparoscopic surgical procedure converted to open procedure; Y83.8 Other surgical procedures as the cause of abnormal reaction of the patient, or of later complication, without mention of misadventure at the time of the procedure; Z20.822 Contact with and (suspected) exposure to COVID-19; Z96.643 Presence of artificial hip joint, bilateral; Z96.612 Presence of left artificial shoulder joint; Z86.010 Personal history of colon polyps; Z79.899 Other long term (current) drug therapy; Z79.891 Long term (current) use of opiate analgesic
CPT/HCPCS: 36415; 71046; 71275; 74177; 76705; 80048; 80053; 81001; 81003; 82330; 82728; 83605; 83690; 83735; 84100; 84145; 85025; 85027; 85610; 85730; 86140; 86704; 86706; 87040; 87340; 87522; 87636; 93005; 96365; 96366; 96368; 96374; 96376; 99291

== ENCOUNTER 2024-03-14 13:12 | Inpatient (IN) | payer OTHER ==
[2024-03-14 14:22] LABS: Basophils % (A) 0 %; Eosinophils # (A) 0.1 k/uL (0-0.7); Eosinophils % (A) 2 %; HCT 27.5 % (39.0-53.0); HGB 8.9 gm/dL (13.0-17.5); Lymphocytes # (A) 0.9 k/uL (1.0-4.8); Lymphocytes % (A) 12 %; MCH 34.4 pg (25.0-35.0); MCHC 32.5 g/dL (31.0-37.0); MCV 105.8 fL (80.0-100.0); Macrocytosis Moderate; Mean Platelet Volume 7.9; Monocytes # (A) 0.6 k/uL (0-1.0); Monocytes % (A) 9 %; Neutrophils # (A) 5.6 k/uL (1.3-7.7); Neutrophils % (A) 76 %; Platelet Count 167 k/uL (150-450); RDW 13.6 % (11.5-15.5); WBC 7.4 k/uL (3.8-10.6)
--- NOTE | 2024-03-14 14:45 | XR ---
EXAMINATION TYPE: XR chest 2V DATE OF EXAM: 03/14/2024 2:39 PM CLINICAL INDICATION:Male, 43 years old with history of weakness; [facility] COMPARISON: Chest radiographs from 09/08/2022. TECHNIQUE: XR chest 2V Frontal view of the chest. FINDINGS: Lungs/Pleura: There is no evidence of pleural effusion, focal consolidation, or pneumothorax. Pulmonary vascularity: Unremarkable. Heart/mediastinum: Cardiomediastinal silhouette is unremarkable. Musculoskeletal: No acute osseous pathology. Left shoulder arthroplasty present. IMPRESSION: No acute cardiopulmonary disease/process.
[2024-03-14] MEDS: SODIUM CHLORIDE 0.9% 500 ML 500 ML IV STA (14:48)
[2024-03-14] MEDS: SODIUM CHLORIDE 0.9% 1,000 ML IV STA (14:48)
[2024-03-14] MEDS: THIAMINE 200 MG in SODIUM CHLORIDE 0.9% 100 ML IVPB STA (14:48)
[2024-03-14 14:49] LABS: ALT 33 U/L (4-49); AST 40 U/L (17-59); African American GFR (CKD) 16 (>60 ml/min/1.73 sqM); Albumin 3.7 g/dL (3.5-5.0); Alkaline Phosphatase 123 U/L (38-126); Anion Gap 9 mmol/L; Blood Urea Nitrogen 47 mg/dL (9-20); Calcium 8.9 mg/dL (8.4-10.2); Carbon Dioxide 17 mmol/L (22-30); Chloride 103 mmol/L (98-107); Glucose 96 mg/dL (74-99); Lipase 57 U/L (23-300); Magnesium 1.4 mg/dL (1.6-2.3); Non-African American GFR(CKD) 14 (>60 ml/min/1.73 sqM); Potassium 4.6 mmol/L (3.5-5.1); Sodium 129 mmol/L (137-145); Total Bilirubin 0.8 mg/dL (0.2-1.3)
--- NOTE | 2024-03-14 15:13 | ED ---
General Adult HPI - General Chief complaint: Recheck/Abnormal Lab/Rx Stated complaint: Hypotension Time Seen by Provider: 03/14/24 13:17 Source: patient, EMS, RN notes reviewed Mode of arrival: EMS Limitations: no limitations - History of Present Illness Initial comments: 43-year-old male presents emergency department from [place] for possible hypotension, dizziness. Patient states has not felt well the last few days. Patient has been at [place] for 7 days for alcohol withdrawal, alcohol abuse. Patient states that he has been dizzy, confusion and numbness at times. Patient reportedly had a blood pressure of 70 systolic. Patient was on lisinopril 20 mg last dose was yesterday at noon. Patient states he was also given gabapentin and Ativan. Patient has not complaints of chest pain or palpitations currently. Denies any fever or any recent infections - Related Data Home Medications Medication Instructions Recorded Confirmed Calcium Carbonate [Tums] 1,000 mg PO BID 09/04/22 09/04/22 Gabapentin [Neurontin] 300 mg PO BID 09/04/22 09/04/22 Magnesium Oxide [Mag-Ox] 400 mg PO BID 09/04/22 09/04/22 Multivitamins, Thera [Multivitamin 1 tab PO DAILY 09/04/22 09/04/22 (formulary)] Potassium Chloride [Potassium 30 meq PO BID 09/04/22 09/04/22 Chloride ER] Sildenafil Citrate 50 mg PO DAILY PRN 09/04/22 09/04/22 allopurinoL [Zyloprim] 200 mg PO DAILY 09/04/22 09/04/22 calcitrioL 0.25 mcg PO DAILY 09/04/22 09/04/22 hydrOXYzine HCL [Atarax] 25 mg PO TID PRN 09/04/22 09/04/22 lisinopriL [Zestril] 20 mg PO DAILY 09/04/22 09/04/22 Previous Rx's Medication Instructions Recorded Amoxic-Pot Clav 875-125Mg 1 tab PO Q12HR 10 Days #20 tab 09/12/22 [Augmentin 875-125] oxyCODONE ER [OxyCONTIN] 5 mg PO Q12HR 3 Days #20 tab 09/12/22 Allergies Allergy/AdvReac Type Severity Reaction Status Date / Time No Known Allergies Allergy Verified 03/14/24 15:06 Review of Systems ROS Statement: Those systems with pertinent positive or pertinent negative responses have been documented in the HPI. ROS Other: All systems not noted in ROS Statement are negative. Past Medical History Past Medical History: Osteoarthritis (OA) Additional Past Medical History / Comment(s): Gout, HTN, Electrolyte abnormality History of Any Multi-Drug Resistant Organisms: None Reported Past Surgical History: Joint Replacement Additional Past Surgical History / Comment(s): Bilateral hip replacement, Left shoulder replacement, Denies abdominal surgeries, Colonoscopy Past Psychological History: Anxiety Smoking Status: Vaper Past Alcohol Use History: Occasional Past Drug Use History: Marijuana - Past Family History Father Additional Family Medical History / Comment(s): Diverticulitis, Gout, HTN General Exam Limitations: no limitations General appearance: alert, in no apparent distress Head exam: Present: atraumatic, normocephalic, normal inspection Eye exam: Present: normal appearance, PERRL, EOMI. Absent: scleral icterus, conjunctival injection, periorbital swelling ENT exam: Present: normal exam, normal oropharynx, mucous membranes moist Neck exam: Present: normal inspection, full ROM. Absent: tenderness, meningismus, lymphadenopathy Respiratory exam: Present: normal lung sounds bilaterally. Absent: respiratory distress, wheezes, rales, rhonchi, stridor Cardiovascular Exam: Present: regular rate, normal rhythm, normal heart sounds. Absent: systolic murmur, diastolic murmur, rubs, gallop, clicks GI/Abdominal exam: Present: soft, normal bowel sounds, other (Old surgical scar noted). Absent: distended, tenderness, guarding, rebound, rigid Course Vital Signs 03/14/24 13:25 Temperature 97.9 F Pulse Rate 92 Respiratory 16 Rate Blood Pressure 108/71 O2 Sat by Pulse 100 Oximetry EKG Findings - EKG Comments: EKG Findings:: EKG performed at 13: 43 sinus rhythm rate 90 [place] 167 QRS 86 QT/QTc 308/356 - EKG Results: EKG: interpreted by MANISHA Medical Decision Making - Medical Decision Making Was pt. sent in by a medical professional or institution (, PA, FUEL CELL TEST ENGINEER, urgent care, hospital, or prison...) When possible be specific @ -[place] Did you speak to anyone other than the patient for history (EMS, parent, family, police, friend...)? What history was obtained from this source @ -No Did you review nursing and triage notes (agree or disagree)? Why? @ -I reviewed and agree with nursing and triage notes Were old charts reviewed (outside hosp., previous admission, EMS record, old EKG, old radiological studies, urgent care reports/EKG's, prison records)? Report findings @ -No old charts were reviewed Differential Diagnosis (chest pain, altered mental status, abdominal pain women, abdominal pain men, vaginal bleeding, weakness, fever, dyspnea, syncope, h eadache, dizziness, GI bleed, back pain, seizure, CVA, palpatations, mental health, musculoskeletal)? @ -Differential Weakness: Hypoglycemia, shock, sepsis, hyponatremia, anemia, infection, IL, ETOH, adverse medicine reaction, overdose, stroke, this is not meant to be an all-inclusive list. EKG interpreted by me (3pts min.). @ -As above X-rays interpreted by me (1pt min.). @ -None done CT interpreted by me (1pt min.). @ -None done U/S interpreted by me (1pt. min.). @ -Ultrasound is pending upon admission What testing was considered but not performed or refused? (CT, X-rays, U/S, labs)? Why? @ -None What meds were considered but not given or refused? Why? @ -None Did you discuss the management of the patient with other professionals (professionals i.e. , PA, FUEL CELL TEST ENGINEER, lab, RT, psych nurse, social sciences research scientist, content producer, teacher, agricultural extension officer, case finisher)? Give summary @ -Dr. Jeffery for admission with consult to nephrology Was smoking cessation discussed for >3mins.? @ -No Was critical care preformed (if so, how long)? @ -No Were there social determinants of health that impacted care today? How? (Homelessness, low income, unemployed, alcoholism, drug addiction, transportation, low edu. Level, literacy, decrease access to med. care, [facility], rehab)? @ -No Was there de-escalation of care discussed even if they declined (Discuss DNR or withdrawal of care, Hospice)? DNR status @ -No What co-morbidities impacted this encounter? (DM, HTN, Smoking, COPD, CAD, Cancer, CVA, ARF, Chemo, Hep., AIDS, mental health diagnosis, sleep apnea, morbid obesity)? @ -Alcohol use Was patient admitted / discharged? Hospital course, mention meds given and route, prescriptions, significant lab abnormalities, going to OR and other pertinent info. @ -Admitted patient is found to have acute renal failure, creatinine greater than 4 ultrasound kidneys and bladder were ordered. Patient has no urinary retention. There is concern for possible Warnicke's as patient had hypotension, confusion, dizziness patient was given thiamine and ordered continuous thiamine infusions. Patient will be admitted with nephrology consult Undiagnosed new problem with uncertain prognosis? @ -No Drug Therapy requiring intensive monitoring for toxicity (Heparin, Nitro, Insulin, Cardizem)? @ -No Were any procedures done? @ -No Diagnosis/symptom? @ -Acute renal failure , alcohol withdrawal Acute, or Chronic, or Acute on Chronic? @ -Acute Uncomplicated (without systemic symptoms) or Complicated (systemic symptoms)? @ -Complicated Side effects of treatment? @ -No Exacerbation, Progression, or Severe Exacerbation? @ -No Poses a threat to life or bodily function? How? (Chest pain, USA, IL, pneumonia, PE, COPD, DKA, ARF, appy, cholecystitis, CVA, Diverticulitis, Homicidal, Suicidal, threat to staff... and all critical care pts) @ -yes renal failure, - Lab Data Result diagrams: 03/14/24 14:13 03/14/24 14:13 Lab Results 03/14/24 03/14/24 03/14/24 Range/Units 14:13 14:13 14:13 WBC 7.4 (3.8-10.6) k/uL RBC 2.60 L (4.30-5.90) m/uL Hgb 8.9 L (13.0-17.5) gm/dL Hct 27.5 L (39.0-53.0) % MCV 105.8 H (80.0-100.0) fL MCH 34.4 (25.0-35.0) pg MCHC 32.5 (31.0-37.0) g/dL RDW 13.6 (11.5-15.5) % Plt Count 167 (150-450) k/uL MPV 7.9 Neutrophils % 76 % Lymphocytes % 12 % Monocytes % 9 % Eosinophils % 2 % Basophils % 0 % Neutrophils # 5.6 (1.3-7.7) k/uL Lymphocytes # 0.9 L (1.0-4.8) k/uL Monocytes # 0.6 (0-1.0) k/uL Eosinophils # 0.1 (0-0.7) k/uL Basophils # 0.0 (0-0.2) k/uL Macrocytosis Moderate Sodium 129 L (137-145) mmol/L Potassium 4.6 (3.5-5.1) mmol/L Chloride 103 (98-107) mmol/L Carbon Dioxide 17 L (22-30) mmol/L Anion Gap 9 mmol/L BUN 47 H (9-20) mg/dL Creatinine 4.72 H (0.66-1.25) mg/dL Est GFR (CKD-EPI)AfAm 16 (>60 ml/min/1.73 sqM) Est GFR (CKD-EPI)NonAf 14 (>60 ml/min/1.73 sqM) Glucose 96 (74-99) mg/dL Plasma Lactic Acid Jose Angel 0.7 (0.7-2.0) mmol/L Calcium 8.9 (8.4-10.2) mg/dL Magnesium 1.4 L (1.6-2.3) mg/dL Total Bilirubin 0.8 (0.2-1.3) mg/dL AST 40 (17-59) U/L ALT 33 (4-49) U/L Alkaline Phosphatase 123 (38-126) U/L Troponin I (0.000-0.034) ng/mL Total Protein 6.0 L (6.3-8.2) g/dL Albumin 3.7 (3.5-5.0) g/dL Lipase 57 (23-300) U/L 03/14/24 Range/Units 14:13 WBC (3.8-10.6) k/uL RBC (4.30-5.90) m/uL Hgb (13.0-17.5) gm/dL Hct (39.0-53.0) % MCV (80.0-100.0) fL MCH (25.0-35.0) pg MCHC (31.0-37.0) g/dL RDW (11.5-15.5) % Plt Count (150-450) k/uL MPV Neutrophils % % Lymphocytes % % Monocytes % % Eosinophils % % Basophils % % Neutrophils # (1.3-7.7) k/uL Lymphocytes # (1.0-4.8) k/uL Monocytes # (0-1.0) k/uL Eosinophils # (0-0.7) k/uL Basophils # (0-0.2) k/uL Macrocytosis Sodium (137-145) mmol/L Potassium (3.5-5.1) mmol/L Chloride (98-107) mmol/L Carbon Dioxide (22-30) mmol/L Anion Gap mmol/L BUN (9-20) mg/dL Creatinine (0.66-1.25) mg/dL Est GFR (CKD-EPI)AfAm (>60 ml/min/1.73 sqM) Est GFR (CKD-EPI)NonAf (>60 ml/min/1.73 sqM) Glucose (74-99) mg/dL Plasma Lactic Acid Jose Angel (0.7-2.0) mmol/L Calcium (8.4-10.2) mg/dL Magnesium (1.6-2.3) mg/dL Total Bilirubin (0.2-1.3) mg/dL AST (17-59) U/L ALT (4-49) U/L Alkaline Phosphatase (38-126) U/L Troponin I <0.012 (0.000-0.034) ng/mL Total Protein (6.3-8.2) g/dL Albumin (3.5-5.0) g/dL Lipase (23-300) U/L Disposition Clinical Impression: Acute renal failure Disposition: ADMITTED IP TO THIS HOSP Condition: Fair Referrals: Aneesh Lemons DO [Primary Care Provider] - 1-2 days Time of Disposition: 15:12
[2024-03-14] MEDS ORDERED: NALOXONE 0.4 MG/ML 1 ML VIAL IV PRN (15:14)
[2024-03-14 15:26] LABS: Appearance,Urine Clear (Clear); Bilirubin,Urine Negative (Negative); Blood,Urine Negative (Negative); Color,Urine Light Yellow; Glucose,Urine (UA) Negative (Negative); Ketones,Urine Negative (Negative); Leukocyte Esterase,Urine Negative (Negative); Nitrite,Urine Negative (Negative); Protein,Urine Negative (Negative); Urobilinogen,Urine <2.0 mg/dL (<2.0)
[2024-03-14] MEDS ORDERED: THIAMINE 250 MG in SODIUM CHLORIDE 0.9% 50 ML IVPB SCH (16:00)
--- NOTE | 2024-03-14 16:11 | US ---
EXAMINATION TYPE: US kidneys/renal and bladder DATE OF EXAM: 03/14/2024 COMPARISON: CT 09/08/2022 CLINICAL INDICATION: Male, 43 years old with history of renal failure; Renal failure per order. EXAM MEASUREMENTS: Right Kidney: 10.7 x 6.3 x 4.5 cm Left Kidney: 10.3 x 6.0 x 5.9 cm Right Kidney: No hydronephrosis or masses seen Left Kidney: No hydronephrosis or masses seen Bladder: Underdistention limits its evaluation. Bilateral Jets seen: No, only the left jet was seen during exam. IMPRESSION: No hydronephrosis.
[2024-03-14] MEDS: SODIUM CHLORIDE 0.9% 1,000 ML IV SCH ×2 (16:17→17:12)
[2024-03-14] MEDS: ENOXAPARIN 30 MG/0.3 ML SYRINGE SQ SCH (17:10)
[2024-03-14] MEDS: LORazepam 1 MG TAB PO PRN (18:37)
[2024-03-14] MEDS: levETIRAcetam 500 MG TAB PO SCH (20:14)
[2024-03-14] MEDS: GABAPENTIN 300 MG CAP PO SCH (20:14)
[2024-03-14] MEDS ORDERED: CALCIUM CARBONATE 500 MG CHEWABLE PO PRN (20:33)
[2024-03-14] MEDS ORDERED: LACTULOSE 20 GM/30 ML CUP PO PRN (20:33)
[2024-03-14] MEDS: IPRATROPIUM-ALBUTEROL 3 ML NEB INHALATION SCH (20:38)
[2024-03-14] MEDS: FLUTICASONE 110 MCG INHALER INHALATION SCH (20:39)
[2024-03-14] MEDS: sulfaSALAzine 500 MG TAB PO SCH (20:42)
[2024-03-14] MEDS: traMADol 50 MG TAB PO PRN (21:13)
[2024-03-14] MEDS: busPIRone HCl 5 MG TAB PO SCH (21:15)
[2024-03-14] MEDS: THIAMINE 250 MG in SODIUM CHLORIDE 0.9% 50 ML IVPB SCH (21:15)
[2024-03-14] MEDS: SODIUM BICARBONATE TAB 650 MG TAB PO SCH (21:15)
[2024-03-14] MEDS: ONDANSETRON 4 MG/2 ML VIAL IVP PRN (21:48)
--- NOTE | 2024-03-14 23:36 | P.HPIM ---
History of Present Illness H&P Date: 03/14/24 Chief Complaint: Not feeling well This is a 43-year-old patient who follows Dr. Aneesh Brown. Patient was transferred here from [place]. Patient has been there for 1 week. Normally drinks 1/5 of whiskey daily. Has been drinking straight for 30 days. Has been drinking alcohol of different amounts including beer for last 20 years. Patient presents with feeling blurry vision joint pains some change in gait. Nausea low blood pressure. Because of pain patient getting naproxen. He has a diagnosis of rheumatoid arthritis for which she is on sulfasalazine and also was given Humira. No change in bowel pattern. No fever no chills. Patient to ER was found to be in severe renal failure. Review of systems: GEN.: Tired decreased appetite EYES: Some blurry vision e HEENT: None NECK: None RESPIRATORY: Some wheezing CARDIOVASCULAR: None GASTROINTESTINAL: None GENITOURINARY: None MUSCULOSKELETAL: Joint pains] LYMPHATICS: None HEMATOLOGICAL: None PSYCHIATRY: Anxious NEUROLOGICAL: None Social history: Patient is vaping. Does marijuana Gummies. Drinking 1/5 of whiskey a day straight for 30 days. Drinking rather frequently for last 40 years. Currently at [place]. Physical examination: VITAL SIGNS: 97.9, 93, 16, 96/54, 95% room air GENERAL: BMI 25.4, laying in bed awake slightly restless. EYES: Pupils equal. Conjunctiva ulisses l. HEENT: External appearance of nose and ears normal, oral cavity grossly normal. NECK: JVD not raised; masses not palpable. HEART: First and second heart sounds are normal; no edema. LUNGS: Respiratory rate normal; some vaping. ABDOMEN: Soft, nontender, liver spleen not palpable, no masses palpable. PSYCH: [Alert and oriented x3; mood and affect anxious MUSCULOSKELETAL:No Clubbing/cyanosis;muscles-grossly intact NEUROLOGICAL: Cranial nerves grossly intact; no facial asymmetry, power and sensation grossly intact. LYMPHATICS: No lymph nodes palpable in the axilla and neck INVESTIGATIONS, reviewed in the clinical context: March 14: White count 7.4 hemoglobin 8.9 platelets 167 sodium 129 potassium 4.6. 47 creatinine 4.72 UA: Negative EKG tracing personally reviewed by me-normal sinus rhythm Chest x-ray film personally reviewed by me-hyperinflation Ultrasound kidney: Normal size. No hydronephrosis Assessment and plan: -Renal failure severe. Drug-induced from naproxen Stop renal offensive drugs, to include naproxen Zestril . IV fluids. -Patient presented multitude of symptoms to include blurry vision. Joint pains. Walking has been off. Nausea. Low blood pressure. Tired. Could be alcohol withdrawal symptoms. Patient been there for 1 week. Alcohol withdrawal symptoms -Rheumatoid arthritis. Patient takes sulfasalazine. Also has been prescribed Humira. 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 -Alcohol use disorder Thiamine supplementation -For pain marijuana Gummies Will put the patient on a small dose of Valium. 2 mg every 8. Past Medical History Past Medical History: Osteoarthritis (OA) Additional Past Medical History / Comment(s): Gout, HTN, Electrolyte abnormality History of Any Multi-Drug Resistant Organisms: None Reported Past Surgical History: Joint Replacement Additional Past Surgical History / Comment(s): Bilateral hip replacement, Left shoulder replacement, Denies abdominal surgeries, Colonoscopy Past Psychological History: Anxiety Smoking Status: Vaper Past Alcohol Use History: Occasional Past Drug Use History: Marijuana - Past Family History Father Additional Family Medical History / Comment(s): Diverticulitis, Gout, HTN Medications and Allergies Home Medications Medication Instructions Recorded Confirmed Type Gabapentin [Neurontin] 300 mg PO TID 09/04/22 03/14/24 History Multivitamins, Thera [Multivitamin 1 tab PO DAILY 09/04/22 03/14/24 History (formulary)] Adalimumab [Humira] 80 mg SQ Q14D 03/14/24 03/14/24 History Budesonide [Pulmicort Flexhaler] 1 puff INHALATION RT-BID 03/14/24 03/14/24 History Calcium Phos/D3/Magnesium/Zinc 1 tab PO TID PRN 03/14/24 03/14/24 History [Ejcgqeq-Xxk-Ljuv-Vitamin D3] Chlorpheniramine Maleate 4 mg PO Q4H PRN 03/14/24 03/14/24 History [Chlor-Trimeton] LORazepam [Ativan] See Taper PO DIRECTED 03/14/24 03/14/24 History Loratadine [Claritin] 10 mg PO DAILY 03/14/24 03/14/24 History Naproxen [Naprosyn] 500 mg PO BID PRN 03/14/24 03/14/24 History Omeprazole [PriLOSEC] 40 mg PO DAILY 03/14/24 03/14/24 History Thiamine [Vitamin B-1] 100 mg PO DAILY 03/14/24 03/14/24 History allopurinoL [Zyloprim] 300 mg PO DAILY 03/14/24 03/14/24 History buPROPion HCL [buPROPion HCL XL] 450 mg PO DAILY 03/14/24 03/14/24 History busPIRone HCL [Buspirone HCl] 5 mg PO TID 03/14/24 03/14/24 History levETIRAcetam [Keppra] 500 mg PO BID 03/14/24 03/14/24 History lisinopriL [Zestril] 20 mg PO DAILY 03/14/24 03/14/24 History ondansetron HCL [Ondansetron HCl] 8 mg PO Q6H PRN 03/14/24 03/14/24 History predniSONE [Deltasone] 20 mg PO DAILY 03/14/24 03/14/24 History sulfaSALAzine 1,000 mg PO BID 03/14/24 03/14/24 History traZODone HCL [Desyrel] 50 - 150 mg PO HS PRN 03/14/24 03/14/24 History Allergies Allergy/AdvReac Type Severity Reaction Status Date / Time No Known Allergies Allergy Verified 03/14/24 15:06 Physical Exam Vitals: Vital Signs Temp Pulse Resp BP Pulse Ox 03/14/24 21:26 93 16 96/54 95 03/14/24 20:51 90 03/14/24 20:40 91 03/14/24 17:30 93 16 107/65 95 03/14/24 13:25 97.9 F 92 16 108/71 100 Intake and Output 03/14/24 03/14/24 03/15/24 14:59 22:59 06:59 Other: Weight 82.554 kg Results CBC & Chem 7: 03/14/24 14:13 03/14/24 14:13 Labs: Abnormal Lab Results - Last 24 Hours (Table) 03/14/24 03/14/24 Range/Units 14:13 14:13 RBC 2.60 L (4.30-5.90) m/uL Hgb 8.9 L (13.0-17.5) gm/dL Hct 27.5 L (39.0-53.0) % MCV 105.8 H (80.0-100.0) fL Lymphocytes # 0.9 L (1.0-4.8) k/uL Sodium 129 L (137-145) mmol/L Carbon Dioxide 17 L (22-30) mmol/L BUN 47 H (9-20) mg/dL Creatinine 4.72 H (0.66-1.25) mg/dL Magnesium 1.4 L (1.6-2.3) mg/dL Total Protein 6.0 L (6.3-8.2) g/dL
[2024-03-15] MEDS: diazePAM 2 MG TAB PO SCH (00:03)
[2024-03-15 07:40] LABS: African American GFR (CKD) 25 (>60 ml/min/1.73 sqM); Anion Gap 3 mmol/L; Blood Urea Nitrogen 37 mg/dL (9-20); Calcium 8.5 mg/dL (8.4-10.2); Carbon Dioxide 18 mmol/L (22-30); Chloride 112 mmol/L (98-107); Glucose 99 mg/dL (74-99); Non-African American GFR(CKD) 21 (>60 ml/min/1.73 sqM); Potassium 4.8 mmol/L (3.5-5.1); Sodium 133 mmol/L (137-145)
[2024-03-15] MEDS: PANTOPRAZOLE 40 MG TABLET PO SCH (08:53)
[2024-03-15] MEDS: buPROPion XL 150 MG TAB.ER.24H PO SCH (08:53)
[2024-03-15] MEDS: FOLIC ACID 1 MG TAB PO SCH (08:53)
[2024-03-15] MEDS: MULTIVITAMINS, THERA 1 EACH TAB PO SCH (08:54)
--- NOTE | 2024-03-15 13:15 | P.NPCON ---
History of Present Illness - Reason for Consult acute renal failure - History of Present Illness patient is a 43-year-old male with history ofhypertension, rheumatoid arthritis, EtOH abuse who has been transferred from [employer] due to blurred vision and significant pain in the back and hands. No previous history of kidney diseases. serum creatinine was noted to be 4.7 mg/dL and has improved to 3.3 today with IV hydration. Blood pressure has been low. Patient is noted to be on significant dose of Naprosyn and lisinopril. no significant urinary symptoms. Patient has been voiding well. He admits to increased fluid intake along with significant daily consumption of alcohol/whiskey. Past Medical History Past Medical History: Osteoarthritis (OA) Additional Past Medical History / Comment(s): Gout, HTN, Electrolyte abnormality History of Any Multi-Drug Resistant Organisms: None Reported Past Surgical History: Joint Replacement Additional Past Surgical History / Comment(s): Bilateral hip replacement, Left shoulder replacement, Denies abdominal surgeries, Colonoscopy Past Psychological History: Anxiety Smoking Status: Vaper Past Alcohol Use History: Occasional Past Drug Use History: Marijuana - Past Family History Father Additional Family Medical History / Comment(s): Diverticulitis, Gout, HTN Medications and Allergies Home Medications Medication Instructions Recorded Confirmed Type Gabapentin [Neurontin] 300 mg PO TID 09/04/22 03/14/24 History Multivitamins, Thera [Multivitamin 1 tab PO DAILY 09/04/22 03/14/24 History (formulary)] Adalimumab [Humira] 80 mg SQ Q14D 03/14/24 03/14/24 History Budesonide [Pulmicort Flexhaler] 1 puff INHALATION RT-BID 03/14/24 03/14/24 History Calcium Phos/D3/Magnesium/Zinc 1 tab PO TID PRN 03/14/24 03/14/24 History [Bnlukep-Nwl-Swwx-Vitamin D3] Chlorpheniramine Maleate 4 mg PO Q4H PRN 03/14/24 03/14/24 History [Chlor-Trimeton] LORazepam [Ativan] See Taper PO DIRECTED 03/14/24 03/14/24 History Loratadine [Claritin] 10 mg PO DAILY 03/14/24 03/14/24 History Naproxen [Naprosyn] 500 mg PO BID PRN 03/14/24 03/14/24 History Omeprazole [PriLOSEC] 40 mg PO DAILY 03/14/24 03/14/24 History Thiamine [Vitamin B-1] 100 mg PO DAILY 03/14/24 03/14/24 History allopurinoL [Zyloprim] 300 mg PO DAILY 03/14/24 03/14/24 History buPROPion HCL [buPROPion HCL XL] 450 mg PO DAILY 03/14/24 03/14/24 History busPIRone HCL [Buspirone HCl] 5 mg PO TID 03/14/24 03/14/24 History levETIRAcetam [Keppra] 500 mg PO BID 03/14/24 03/14/24 History lisinopriL [Zestril] 20 mg PO DAILY 03/14/24 03/14/24 History ondansetron HCL [Ondansetron HCl] 8 mg PO Q6H PRN 03/14/24 03/14/24 History predniSONE [Deltasone] 20 mg PO DAILY 03/14/24 03/14/24 History sulfaSALAzine 1,000 mg PO BID 03/14/24 03/14/24 History traZODone HCL [Desyrel] 50 - 150 mg PO HS PRN 03/14/24 03/14/24 History Allergies Allergy/AdvReac Type Severity Reaction Status Date / Time No Known Allergies Allergy Verified 03/14/24 15:06 Physical Exam Vitals: Vital Signs Temp Pulse Resp BP Pulse Ox 03/15/24 08:57 89 03/15/24 08:49 93 16 111/67 94 L 03/15/24 06:06 92 18 94/64 99 03/15/24 02:10 90 18 99/65 95 03/15/24 01:34 99 16 98/64 96 03/14/24 23:51 94 17 96/53 96 03/14/24 21:26 93 16 96/54 95 03/14/24 20:51 90 03/14/24 20:40 91 03/14/24 17:30 93 16 107/65 95 03/14/24 13:25 97.9 F 92 16 108/71 100 patient is awake, complaining of pain in the hands and back. Examination of the heart S1 and S2 Examination of the lungs bilateral breath sounds are heard Abdomen is soft nontender Examination of lower extremity shows no evidence of edema GLUE SPREADER exam grossly intact Patient is alert and oriented 3. Results - Lab Results Most recent lab results Calcium 8.5 mg/dL (8.4-10.2) 03/15/24 06:58 Magnesium 1.4 mg/dL (1.6-2.3) L 03/14/24 14:13 03/14/24 14:13 03/15/24 06:58 Assessment and Plan Assessment: 1. Acute kidney injury, ATN,and secondary to NSAIDs, nonoliguric currently improving with IV fluids and improved blood pressures. UA is completely benign.no obstruction noted on ultrasound. 2. EtOH abuse. Patient was admitted to [employer] [place] for about 1 week 3. History of hypertension 4. Rheumatoid arthritis followed by rheumatology, maintained on sulfasalazine and Humira. 5. History of gout maintained on allopurinol Plan: continue with IV fluids. Continue to hold APRIL inhibitor's and patient is advised to avoid NSAIDs. Repeat labs in a.m. Avoid any other nephrotoxic agents. Thank you for the consultation. We will continue to follow the patient with you during his hospitalization.
[2024-03-15] MEDS: ACETAMINOPHEN TAB 500 MG TAB PO PRN (14:38)
[2024-03-15] MEDS: LACTATED RINGERS 1,000 ML IV SCH (15:26)
[2024-03-15] MEDS: busPIRone HCl 5 MG TAB PO SCH (16:16)
[2024-03-15] MEDS: NICOTINE 21MG/24HR PATCH TRANSDERM SCH (17:27)
--- NOTE | 2024-03-15 17:42 | P.PN ---
Progress Note - Text Progress Note Date: 03/15/24 Chief Complaint: Not feeling well This is a 43-year-old patient who follows Dr. Aneesh Brown. Patient was transferred here from [place]. Patient has been there for 1 week. Normally drinks 1/5 of whiskey daily. Has been drinking straight for 30 days. Has been drinking alcohol of different amounts including beer for last 20 years. Patient presents with feeling blurry vision joint pains some change in gait. Nausea low blood pressure. Because of pain patient getting naproxen. He has a diagnosis of rheumatoid arthritis for which she is on sulfasalazine and also was given Humira. No change in bowel pattern. No fever no chills. Patient to ER was found to be in severe renal failure. March 15: Patient met with multiple issues. Including acute kidney injury. Alcohol withdrawal symptoms. Patient is asking for more pain medications. Did explain to him dose of Neurontin was cut back because of kidney failure and accumulation of the drug. Did prescribe K-pad and ice pack. Patient wants a diet changed to regular which was done. Also nicotine patch being given because patient does vaping. Creatinine down to 3.37. Getting oral sodium bicarbonate. Active Medications Acetaminophen (Acetaminophen Tab 500 Mg Tab) 500 mg PO Q6HR PRN PRN Reason: Fever and/ or Pain Last Admin: 03/15/24 14:38 Dose: 500 mg Albuterol/Ipratropium (Ipratropium-Albuterol 3 Ml Neb) 3 ml INHALATION RT-TID [facility] Last Admin: 03/15/24 14:22 Dose: 3 ml Bupropion HCl (Bupropion Xl 150 Mg Tab.Er.24h) 450 mg PO DAILY [facility] Last Admin: 03/15/24 08:53 Dose: 450 mg Buspirone HCl (Buspirone Hcl 5 Mg Tab) 5 mg PO TID [facility] Last Admin: 03/15/24 16:16 Dose: 5 mg Calcium Carbonate/Glycine (Calcium Carbonate 500 Mg Chewable) 1,000 mg PO Q4HR PRN PRN Reason: Dyspepsia Diazepam (Diazepam 2 Mg Tab) 2 mg PO TID [facility] Last Admin: 03/15/24 16:16 Dose: 2 mg Enoxaparin Sodium (Enoxaparin 30 Mg/0.3 Ml Syringe) 30 mg SQ DAILY [facility] Last Admin: 03/15/24 08:59 Dose: 30 mg Fluticasone Propionate (Fluticasone 110 Mcg Inhaler) 1 puff INHALATION RT-BID [facility] Last Admin: 03/15/24 08:49 Dose: 1 puff Folic Acid (Folic Acid 1 Mg Tab) 1 mg PO DAILY [facility] Last Admin: 03/15/24 08:53 Dose: 1 mg Gabapentin (Gabapentin 300 Mg Cap) 300 mg PO HS [facility] Last Admin: 03/14/24 20:14 Dose: 300 mg Thiamine HCl 250 mg/ Sodium (Chloride) 52.5 mls @ 100 mls/hr IVPB TID [facility] Last Admin: 03/15/24 16:30 Dose: 100 mls/hr Lactated Ringer's (Lactated Ringers) 1,000 mls @ 100 mls/hr IV .Q10H [facility] Last Admin: 03/15/24 15:26 Dose: 100 mls/hr Lactulose (Lactulose 20 Gm/30 Ml Cup) 20 gm PO DAILY PRN PRN Reason: Constipation Levetiracetam (Levetiracetam 500 Mg Tab) 500 mg PO BID [facility] Last Admin: 03/15/24 08:54 Dose: 500 mg Lorazepam (Lorazepam 0.5 Mg Tab) 0.5 mg PO Q4HR PRN PRN Reason: [place] 4 To 5 Lorazepam (Lorazepam 1 Mg Tab) 1 mg PO Q4HR PRN PRN Reason: [place] 6 To 7 Last Admin: 03/15/24 15:02 Dose: 1 mg Lorazepam (Lorazepam 1 Mg Tab) 2 mg PO Q2HR PRN PRN Reason: [place] 10 or greater Lorazepam (Lorazepam 1 Mg Tab) 2 mg PO Q3HR PRN PRN Reason: [place] 8 To 9 Multivitamins (Multivitamins, Thera 1 Each Tab) 1 each PO DAILY [facility] Last Admin: 03/15/24 08:54 Dose: 1 each Naloxone HCl (Naloxone 0.4 Mg/Ml 1 Ml Vial) 0.2 mg IV Q2M PRN PRN Reason: Opioid Reversal Nicotine (Nicotine 21mg/24hr Patch) 1 patch TRANSDERM DAILY [facility] Last Admin: 03/15/24 17:27 Dose: 1 patch Ondansetron HCl (Ondansetron 4 Mg/2 Ml Vial) 4 mg IVP Q8HR PRN PRN Reason: Nausea And Vomiting Last Admin: 03/15/24 08:53 Dose: 4 mg Pantoprazole Sodium (Pantoprazole 40 Mg Tablet) 40 mg PO DAILY [facility] Last Admin: 03/15/24 08:53 Dose: 40 mg Sodium Bicarbonate (Sodium Bicarbonate Tab 650 Mg Tab) 650 mg PO TID [facility] Last Admin: 03/15/24 16:16 Dose: 650 mg Sulfasalazine (Sulfasalazine 500 Mg Tab) 1,000 mg PO BID [facility]; Protocol Stop: 06/21/24 20:59 Last Admin: 03/15/24 08:53 Dose: 1,000 mg Tramadol HCl (Tramadol 50 Mg Tab) 50 mg PO Q6H PRN PRN Reason: Moderate Pain (Scale 4 to 6) Last Admin: 03/15/24 14:59 Dose: 50 mg Social history: Does vaping. Does marijuana Gummies. Drinking 1/5 of whiskey a day straight for 30 days. Drinking rather frequently for last 40 years. Currently at [place]. Physical examination: VITAL SIGNS: 98.2, 90, 16, 107/70, 99% room air GENERAL: Reclining in bed. EYES: Pupils equal. Conjunctiva ulisses l. HEENT: External appearance of nose and ears normal, oral cavity grossly normal. NECK: JVD not raised; masses not palpable. HEART: First and second heart sounds are normal; no edema. LUNGS: Respiratory rate normal; some vaping. ABDOMEN: Soft, nontender, liver spleen not palpable, no masses palpable. PSYCH: [Alert and oriented x3; mood and affect anxious MUSCULOSKELETAL:No Clubbing/cyanosis;muscles-grossly intact INVESTIGATIONS, reviewed in the clinical context: March 15: Sodium 133 potassium 4.8 bicarb 18 BUN 37 creatinine 3.37 March 14: White count 7.4 hemoglobin 8.9 platelets 167 sodium 129 potassium 4.6. 47 creatinine 4.72 UA: Negative EKG tracing personally reviewed by me-normal sinus rhythm Chest x-ray film personally reviewed by me-hyperinflation Ultrasound kidney: Normal size. No hydronephrosis Assessment and plan: -Acute renal failure severe. ATN. Drug-induced from naproxen: Slow to respond Stop renal offensive drugs, to include naproxen Zestril . IV fluids. Resume allopurinol at 100 mg an hour because of renal failure. Admission creatinine 4.72. -Alcohol withdrawal symptoms: Patient presented multitude of symptoms to include blurry vision. Joint pains. Walking has been off. Nausea. Low blood pressure. Tired. Patient been there for 1 week. Continue Valium 2 mg 3 times daily -Rheumatoid arthritis. sulfasalazine. Also has been prescribed Humira. 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 -Metabolic acidosis due to acute kidney injury Sodium bicarbonate -Macrocytic anemia Check iron studies. B12 folate -Chronic pain. Patient takes Neurontin. In view of renal failure, dose was cut back -Hyponatremia on presentation likely hypovolemic IV fluids -Alcohol use disorder Thiamine supplementation -For pain takes marijuana Gummies -Vaping Nicotine patch Care was discussed with the patient. Questions answered. Reasons for medications discussed. Add K-pad ice pack. Nicotine patch. Past Medical History Past Medical History: Osteoarthritis (OA) Additional Past Medical History / Comment(s): Gout, HTN, Electrolyte abnormality History of Any Multi-Drug Resistant Organisms: None Reported Past Surgical History: Joint Replacement Additional Past Surgical History / Comment(s): Bilateral hip replacement, Left shoulder replacement, Denies abdominal surgeries, Colonoscopy Past Psychological History: Anxiety Smoking Status: Vaper Past Alcohol Use History: Occasional Past Drug Use History: Marijuana
[2024-03-15] MEDS: allopurinoL 100 MG TAB PO SCH (20:12)
[2024-03-15] MEDS: LORazepam 0.5 MG TAB PO PRN (23:55)
[2024-03-16 05:11] LABS: % Iron Saturation 8.26 (15.00-50.00)
[2024-03-16] MEDS: LORazepam 1 MG TAB PO PRN ×2 (09:54→20:24)
[2024-03-16 11:42] LABS: African American GFR (CKD) >90 (>60 ml/min/1.73 sqM); Anion Gap 4 mmol/L; Blood Urea Nitrogen 11 mg/dL (9-20); Calcium 8.1 mg/dL (8.4-10.2); Carbon Dioxide 26 mmol/L (22-30); Chloride 111 mmol/L (98-107); Glucose 94 mg/dL (74-99); Non-African American GFR(CKD) >90 (>60 ml/min/1.73 sqM); Potassium 3.7 mmol/L (3.5-5.1); Sodium 141 mmol/L (137-145)
--- NOTE | 2024-03-16 17:51 | P.PN ---
Progress Note - Text Progress Note Date: 03/16/24 Chief Complaint: Not feeling well This is a 43-year-old patient who follows Dr. Aneesh Brown. Patient was transferred here from [facility]. Patient has been there for 1 week. Normally drinks 1/5 of whiskey daily. Has been drinking straight for 30 days. Has been drinking alcohol of different amounts including beer for last 20 years. Patient presents with feeling blurry vision joint pains some change in gait. Nausea low blood pressure. Because of pain patient getting naproxen. He has a diagnosis of rheumatoid arthritis for which she is on sulfasalazine and also was given Humira. No change in bowel pattern. No fever no chills. Patient to ER was found to be in severe renal failure. March 15: Patient met with multiple issues. Including acute kidney injury. Alcohol withdrawal symptoms. Patient is asking for more pain medications. Did explain to him dose of Neurontin was cut back because of kidney failure and accumulation of the drug. Did prescribe K-pad and ice pack. Patient wants a diet changed to regular which was done. Also nicotine patch being given because patient does vaping. Creatinine down to 3.37. Getting oral sodium bicarbonate. March 16: Patient was seen this morning. Labs are not back. Patient has chronic aching all over. Spoke to the nurse to get the patient to walk in the hallway. He did ambulate. Later the creatinine came back to 0.58. There until we increased to the home dose of 300 mg 3 times daily. Also dose of allopurinol was increased. Will DC the [employer]. Plan for discharge to [facility] tomorrow. Iron deficiency anemia. Give IV iron. Active Medications Acetaminophen (Acetaminophen Tab 500 Mg Tab) 500 mg PO Q6HR PRN PRN Reason: Fever and/ or Pain Last Admin: 03/16/24 12:01 Dose: 500 mg Albuterol/Ipratropium (Ipratropium-Albuterol 3 Ml Neb) 3 ml INHALATION RT-TID [facility] Last Admin: 03/16/24 13:09 Dose: 3 ml Allopurinol (Allopurinol 300 Mg Tab) 300 mg PO DAILY [facility] Bupropion HCl (Bupropion Xl 150 Mg Tab.Er.24h) 450 mg PO DAILY [facility] Last Admin: 03/16/24 09:56 Dose: 450 mg Buspirone HCl (Buspirone Hcl 5 Mg Tab) 5 mg PO TID [facility] Last Admin: 03/16/24 16:10 Dose: 5 mg Calcium Carbonate/Glycine (Calcium Carbonate 500 Mg Chewable) 1,000 mg PO Q4HR PRN PRN Reason: Dyspepsia Diazepam (Diazepam 2 Mg Tab) 2 mg PO TID [facility] Stop: 03/16/24 23:59 Last Admin: 03/16/24 16:10 Dose: 2 mg Enoxaparin Sodium (Enoxaparin 30 Mg/0.3 Ml Syringe) 30 mg SQ DAILY [facility] Last Admin: 03/16/24 09:56 Dose: 30 mg Fluticasone Propionate (Fluticasone 110 Mcg Inhaler) 1 puff INHALATION RT-BID [facility] Last Admin: 03/16/24 09:28 Dose: 1 puff Folic Acid (Folic Acid 1 Mg Tab) 1 mg PO DAILY [facility] Last Admin: 03/16/24 09:55 Dose: 1 mg Gabapentin (Gabapentin 300 Mg Cap) 300 mg PO TID [facility] Thiamine HCl 250 mg/ Sodium (Chloride) 52.5 mls @ 100 mls/hr IVPB TID [facility] Last Admin: 03/16/24 16:13 Dose: 100 mls/hr Lactulose (Lactulose 20 Gm/30 Ml Cup) 20 gm PO DAILY PRN PRN Reason: Constipation Levetiracetam (Levetiracetam 500 Mg Tab) 500 mg PO BID [facility] Last Admin: 03/16/24 09:55 Dose: 500 mg Lorazepam (Lorazepam 0.5 Mg Tab) 0.5 mg PO Q4HR PRN PRN Reason: [place] 4 To 5 Last Admin: 03/15/24 23:55 Dose: 0.5 mg Lorazepam (Lorazepam 1 Mg Tab) 1 mg PO Q4HR PRN PRN Reason: Ci[place] 6 To 7 Last Admin: 03/16/24 08:24 Dose: 1 mg Lorazepam (Lorazepam 1 Mg Tab) 2 mg PO Q2HR PRN PRN Reason: Ci[place] 10 or greater Last Admin: 03/16/24 14:18 Dose: 2 mg Lorazepam (Lorazepam 1 Mg Tab) 2 mg PO Q3HR PRN PRN Reason: [place] 8 To 9 Multivitamins (Multivitamins, Thera 1 Each Tab) 1 each PO DAILY [facility] Last Admin: 03/16/24 09:55 Dose: 1 each Naloxone HCl (Naloxone 0.4 Mg/Ml 1 Ml Vial) 0.2 mg IV Q2M PRN PRN Reason: Opioid Reversal Nicotine (Nicotine 21mg/24hr Patch) 1 patch TRANSDERM DAILY [facility] Last Admin: 03/16/24 09:55 Dose: 1 patch Ondansetron HCl (Ondansetron 4 Mg/2 Ml Vial) 4 mg IVP Q8HR PRN PRN Reason: Nausea And Vomiting Last Admin: 03/15/24 08:53 Dose: 4 mg Pantoprazole Sodium (Pantoprazole 40 Mg Tablet) 40 mg PO DAILY [facility] Last Admin: 03/16/24 09:55 Dose: 40 mg Prednisone (Prednisone 20 Mg Tab) 20 mg PO DAILY [facility] Sodium Bicarbonate (Sodium Bicarbonate Tab 650 Mg Tab) 650 mg PO TID [facility] Last Admin: 03/16/24 16:10 Dose: 650 mg Sulfasalazine (Sulfasalazine 500 Mg Tab) 1,000 mg PO BID [facility]; Protocol Stop: 06/21/24 20:59 Last Admin: 03/16/24 09:56 Dose: 1,000 mg Thiamine HCl (Thiamine 100 Mg Tab) 100 mg PO DAILY [facility] Tramadol HCl (Tramadol 50 Mg Tab) 50 mg PO Q6H PRN PRN Reason: Moderate Pain (Scale 4 to 6) Last Admin: 03/16/24 12:01 Dose: 50 mg Social history: Does vaping. Does marijuana Gummies. Drinking 1/5 of whiskey a day straight for 30 days. Drinking rather frequently for last 40 years. Currently at [facility]. Physical examination: VITAL SIGNS: 98.8, 104, 16, 138 x 84, 98% room air GENERAL: Resting in bed EYES: Pupils equal. Conjunctiva ulisses l. HEENT: External appearance of nose and ears normal, oral cavity grossly normal. NECK: JVD not raised; masses not palpable. HEART: First and second heart sounds are normal; no edema. LUNGS: Respiratory rate normal; some vaping. ABDOMEN: Soft, nontender, liver spleen not palpable, no masses palpable. PSYCH: [Alert and oriented x3; mood and affect anxious MUSCULOSKELETAL:No Clubbing/cyanosis;muscles-grossly intact INVESTIGATIONS, reviewed in the clinical context: March 16: Sodium 141 potassium 3.7 bicarb 11 creatinine 0.58 iron 20 TIBC 242 ferritin 521 transferrin 173 vitamin B12 44 folate 8.4 March 15: Sodium 133 potassium 4.8 bicarb 18 BUN 37 creatinine 3.37 March 14: White count 7.4 hemoglobin 8.9 platelets 167 sodium 129 potassium 4.6. 47 creatinine 4.72 UA: Negative EKG tracing personally reviewed by me-normal sinus rhythm Chest x-ray film personally reviewed by me-hyperinflation Ultrasound kidney: Normal size. No hydronephrosis Assessment and plan: -Acute renal failure severe. ATN. Drug-induced from naproxen: Resolved Stop renal offensive drugs, to include naproxen Zestril . IV fluids. Admission creatinine 4.72. -Alcohol withdrawal symptoms: Patient presented multitude of symptoms to include blurry vision. Joint pains. Walking has been off. Nausea. Low blood pressure. Tired. Patient been there for 1 week. Stop Valium after today -Rheumatoid arthritis. sulfasalazine. Also has been prescribed Humira. Does follow with dog sitter. -Metabolic acidosis due to acute kidney injury Sodium bicarbonate -Macrocytic anemia, iron deficient IV Ferrlecit . B12 folate-normal -Chronic pain. Patient takes Neurontin. Increase Neurontin to home dose as creatinine back to normal -Hyponatremia on presentation likely hypovolemic: Better IV fluids -Alcohol use disorder Thiamine supplementation -For pain takes marijuana Gummies -Vaping Nicotine patch Patient did ambulate a few times to the bathroom. Also in the hallway per the nurse. Increase activity further. Plan for discharge tomorrow. Past Medical History Past Medical History: Osteoarthritis (OA) Additional Past Medical History / Comment(s): Gout, HTN, Electrolyte abnormality History of Any Multi-Drug Resistant Organisms: None Reported Past Surgical History: Joint Replacement Additional Past Surgical History / Comment(s): Bilateral hip replacement, Left shoulder replacement, Denies abdominal surgeries, Colonoscopy Past Psychological History: Anxiety Smoking Status: Vaper Past Alcohol Use History: Occasional Past Drug Use History: Marijuana
[2024-03-16] MEDS: THIAMINE 100 MG TAB PO SCH (18:02)
[2024-03-16] MEDS: predniSONE 20 MG TAB PO SCH (18:02)
[2024-03-16] MEDS: SODIUM FERRIC GLUCONAT-SUCROSE 125 MG in SODIUM CHLORIDE 0.9% 100 ML IVPB SCH (18:16)
[2024-03-16] MEDS: GABAPENTIN 300 MG CAP PO SCH (20:17)
[2024-03-17 04:45] LABS: Basophils % (A) 0 %; Eosinophils % (A) 1 %; HGB 9.3 gm/dL (13.0-17.5); Hypochromasia Slight; Lymphocytes # (A) 0.9 k/uL (1.0-4.8); Lymphocytes % (A) 17 %; MCH 34.1 pg (25.0-35.0); MCHC 31.9 g/dL (31.0-37.0); MCV 106.8 fL (80.0-100.0); Macrocytosis Moderate; Monocytes # (A) 0.4 k/uL (0-1.0); Monocytes % (A) 7 %; Neutrophils # (A) 3.8 k/uL (1.3-7.7); Neutrophils % (A) 74 %; Platelet Count 218 k/uL (150-450); RBC 2.72 m/uL (4.30-5.90); RDW 13.3 % (11.5-15.5); WBC 5.2 k/uL (3.8-10.6)
[2024-03-17 04:55] LABS: Sodium 138 mmol/L (137-145)
[2024-03-17 04:56] LABS: African American GFR (CKD) 66 (>60 ml/min/1.73 sqM); Anion Gap 12 mmol/L; Blood Urea Nitrogen 18 mg/dL (9-20); Calcium 9.4 mg/dL (8.4-10.2); Carbon Dioxide 21 mmol/L (22-30); Chloride 105 mmol/L (98-107); Glucose 103 mg/dL (74-99); Non-African American GFR(CKD) 57 (>60 ml/min/1.73 sqM); Potassium 4.9 mmol/L (3.5-5.1)
[2024-03-17] MEDS: allopurinoL 300 MG TAB PO SCH (08:54)
[2024-03-17] MEDS ORDERED: SODIUM FERRIC GLUCONAT-SUCROSE 125 MG in SODIUM CHLORIDE 0.9% 100 ML IVPB SCH (10:30)
--- NOTE | 2024-03-17 12:46 | P.PN ---
Subjective patient is seen for follow-up for hyponatremia and acute kidney injury. Renal function has improved significantly with serum creatinine down to 1.5 mg/dL today from 4.7 on initial admission. Patient is s/p IV fluids. Pain is better controlled. Urine output at 3.5 L for 24 hours. Off of IV fluids. Objective - Vital Signs Vital signs: Vital Signs Temp 98.6 F 03/17/24 07:37 Pulse 108 H 03/17/24 07:37 Resp 17 03/17/24 07:37 BP 99/67 03/17/24 07:37 Pulse Ox 97 03/17/24 07:37 FiO2 Intake & Output 03/16/24 03/17/24 03/17/24 18:59 06:59 18:59 Output Total 300 300 Balance -300 -300 Output: Urine 300 300 Other: Voiding Method Urinal # Bowel Movements 1 - Exam patient is awake, complaining of pain in the hands and back. 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 Acute kidney injury, ATN,and secondary to NSAIDs, nonoliguric currently improving with IV fluids and improved blood pressures. UA is completely benign.no obstruction noted on ultrasound. 2. EtOH abuse. Patient was admitted to [place] for about 1 week 3. History of hypertension 4. Rheumatoid arthritis followed by rheumatology, maintained on sulfasalazine and Humira as outpatient. 5. History of gout maintained on allopurinol Plan: resume IV fluids and continue to encourage increased oral intake. Continue to hold APRIL inhibitor's and patient is advised to avoid NSAIDs. Repeat labs in a.m. Avoid any other nephrotoxic agents.
[2024-03-17] MEDS: LACTATED RINGERS 1,000 ML IV SCH (13:10)
--- NOTE | 2024-03-17 16:55 | P.PN ---
Subjective Progress Note Date: 03/17/24 43-year-old patient who follows Dr. Aneesh Brown. Patient was transferred here from [place]. Patient has been there for 1 week. Normally drinks 1/5 of whiskey daily. Has been drinking straight for 30 days. Has been drinking alcohol of different amounts including beer for last 20 years. Patient presents with feeling blurry vision joint pains some change in gait. Nausea low blood pressure. Because of pain patient getting naproxen. He has a diagnosis of rheumatoid arthritis for which she is on sulfasalazine and also was given Humira. No change in bowel pattern. No fever no chills. Patient to ER was found to be in severe renal failure. March 15: Patient met with multiple issues. Including acute kidney injury. Alcohol withdrawal symptoms. Patient is asking for more pain medications. Did explain to him dose of Neurontin was cut back because of kidney failure and accumulation of the drug. Did prescribe K-pad and ice pack. Patient wants a diet changed to regular which was done. Also nicotine patch being given because patient does vaping. Creatinine down to 3.37. Getting oral sodium bicarbonate. March 16: Patient was seen this morning. Labs are not back. Patient has chr onic aching all over. Spoke to the nurse to get the patient to walk in the hallway. He did ambulate. Later the creatinine came back to 0.58. There until we increased to the home dose of 300 mg 3 times daily. Also dose of allopurinol was increased. Will DC the Valium tonight. Plan for discharge to [facility] tomorrow. Iron deficiency anemia. Give IV iron. Objective - Vital Signs Vital signs: Vital Signs Temp 98.6 F 03/17/24 07:37 Pulse 108 H 03/17/24 07:37 Resp 17 03/17/24 07:37 BP 99/67 03/17/24 07:37 Pulse Ox 97 03/17/24 07:37 FiO2 Intake & Output 03/16/24 03/17/24 03/17/24 18:59 06:59 18:59 Output Total 300 300 Balance -300 -300 Output: Urine 300 300 Other: Voiding Method Urinal # Bowel Movements 1 - Exam GENERAL: Resting in bed EYES: Pupils equal. Conjunctiva ulisses HEENT: External appearance of nose and ears normal, oral cavity grossly normal. NECK: JVD not raised; masses not palpable. HEART: First and second heart sounds are normal; no edema. LUNGS: Respiratory rate normal; some vaping. ABDOMEN: Soft, nontender, liver spleen not palpable, no masses palpable. PSYCH: [Alert and oriented x3; mood and affect anxious MUSCULOSKELETAL:No Clubbing/cyanosis;muscles-grossly intact - Labs CBC & Chem 7: 03/17/24 04:09 03/17/24 04:09 Labs: Abnormal Lab Results - Last 24 Hours (Table) 03/17/24 03/17/24 Range/Units 04:09 04:09 RBC 2.72 L (4.30-5.90) m/uL Hgb 9.3 L (13.0-17.5) gm/dL Hct 29.0 L (39.0-53.0) % MCV 106.8 H (80.0-100.0) fL Lymphocytes # 0.9 L (1.0-4.8) k/uL Carbon Dioxide 21 L (22-30) mmol/L Creatinine 1.50 H (0.66-1.25) mg/dL Glucose 103 H (74-99) mg/dL Assessment and Plan Assessment: -Acute renal failure severe. ATN. Drug-induced from naproxen: Resolved Stop renal offensive drugs, to include naproxen Zestril . IV fluids. Admission creatinine 4.72. -Alcohol withdrawal symptoms: Patient presented multitude of symptoms to include blurry vision. Joint pains. Walking has been off. Nausea. Low blood pressure. Tired. Patient been there for 1 week. Stop Valium after today -Rheumatoid arthritis. sulfasalazine. Also has been prescribed Humira. 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 -Metabolic acidosis due to acute kidney injury Sodium bicarbonate -Macrocytic anemia, iron deficient IV Ferrlecit . B12 folate-normal -Chronic pain. Patient takes Neurontin. Increase Neurontin to home dose as creatinine back to normal -Hyponatremia on presentation likely hypovolemic: Better IV fluids -Alcohol use disorder Thiamine supplementation -For pain takes marijuana Gummies -Vaping Nicotine patch
[2024-03-17] MEDS: HYDROcodone/APAP 5-325MG 1 EACH TAB PO PRN (21:38)
[2024-03-18] MEDS: SODIUM FERRIC GLUCONAT-SUCROSE 125 MG in SODIUM CHLORIDE 0.9% 100 ML IVPB SCH (08:46)
[2024-03-18 13:32] LABS: African American GFR (CKD) 73 (>60 ml/min/1.73 sqM); Anion Gap 7 mmol/L; Blood Urea Nitrogen 19 mg/dL (9-20); Calcium 9.1 mg/dL (8.4-10.2); Carbon Dioxide 24 mmol/L (22-30); Chloride 107 mmol/L (98-107); Glucose 117 mg/dL (74-99); Non-African American GFR(CKD) 63 (>60 ml/min/1.73 sqM); Potassium 4.6 mmol/L (3.5-5.1); Sodium 138 mmol/L (137-145)
--- NOTE | 2024-03-18 17:13 | P.PN ---
Subjective Progress Note Date: 03/18/24 43-year-old patient who follows Dr. Aneesh Brown. Patient was transferred here from [place]. Patient has been there for 1 week. Normally drinks 1/5 of whiskey daily. Has been drinking straight for 30 days. Has been drinking alcohol of different amounts including beer for last 20 years. Patient presents with feeling blurry vision joint pains some change in gait. Nausea low blood pressure. Because of pain patient getting naproxen. He has a diagnosis of rheumatoid arthritis for which she is on sulfasalazine and also was given Humira. No change in bowel pattern. No fever no chills. Patient to ER was found to be in severe renal failure. March 15: Patient met with multiple issues. Including acute kidney injury. Alcohol withdrawal symptoms. Patient is asking for more pain medications. Did explain to him dose of Neurontin was cut back because of kidney failure and accumulation of the drug. Did prescribe K-pad and ice pack. Patient wants a diet changed to regular which was done. Also nicotine patch being given because patient does vaping. Creatinine down to 3.37. Getting oral sodium bicarbonate. March 16: Patient was seen this morning. Labs are not back. Patient has chr onic aching all over. Spoke to the nurse to get the patient to walk in the hallway. He did ambulate. Later the creatinine came back to 0.58. There until we increased to the home dose of 300 mg 3 times daily. Also dose of allopurinol was increased. Will DC the [employer]. Plan for discharge to [place] tomorrow. Iron deficiency anemia. Give IV iron. 24-hour interval change 03/18/2024 Patient seen and evaluated in room at bedside; denies any anxiety with chest pain Vital signs reviewed and remained stable Remains on IV fluids in form of normal saline Lab review shows a sodium of 138, potassium 4.6, BUNs/creatinine of 19/1.38, creatinine improving from 1.50 yesterday -Will plan to continue with current IV fluids with possible discharge to [place] tomorrow Objective - Vital Signs Vital signs: Vital Signs Temp 97.8 F 03/18/24 07:20 Pulse 74 03/18/24 07:20 Resp 15 03/18/24 07:20 BP 152/100 03/18/24 07:20 Pulse Ox 97 03/18/24 07:20 FiO2 Intake & Output 03/17/24 03/18/24 03/18/24 18:59 06:59 18:59 Output Total 1600 700 Balance -1600 -700 Output: Urine 1600 700 Other: Voiding Method Urinal Urinal # Bowel Movements 1 - Exam GENERAL: Resting in bed EYES: Pupils equal. Conjunctiva ulisses HEENT: External appearance of nose and ears normal, oral cavity grossly normal. NECK: JVD not raised; masses not palpable. HEART: First and second heart sounds are normal; no edema. LUNGS: Respiratory rate normal; some vaping. ABDOMEN: Soft, nontender, liver spleen not palpable, no masses palpable. PSYCH: [Alert and oriented x3; mood and affect anxious MUSCULOSKELETAL:No Clubbing/cyanosis;muscles-grossly intact - Labs CBC & Chem 7: 03/17/24 04:09 03/18/24 13:04 Assessment and Plan Assessment: -Acute renal failure severe. ATN. Drug-induced from naproxen: Resolved Stop renal offensive drugs, to include naproxen Zestril . IV fluids. Admission creatinine 4.72. -Alcohol withdrawal symptoms: Patient presented multitude of symptoms to include blurry vision. Joint pains. Walking has been off. Nausea. Low blood pressure. Tired. Patient been there for 1 week. Stop Valium after today -Rheumatoid arthritis. sulfasalazine. Also has been prescribed Humira. Does follow with principal law clerk. -Metabolic acidosis due to acute kidney injury Sodium bicarbonate -Macrocytic anemia, iron deficient IV Ferrlecit . B12 folate-normal -Chronic pain. Patient takes Neurontin. Increase Neurontin to home dose as creatinine back to normal -Hyponatremia on presentation likely hypovolemic: Better IV fluids -Alcohol use disorder Thiamine supplementation -For pain takes marijuana Gummies -Vaping Nicotine patch
--- NOTE | 2024-03-18 17:42 | P.PN ---
Subjective patient is seen for follow-up for hyponatremia and acute kidney injury. Renal function has improved significantly with serum creatinine down to 1.38 mg/dL today from 4.7 on initial admission. Patient is s/p IV fluids. Pain is better controlled. Urine output at 1.4 L for 24 hours. Off of IV fluids. Objective - Vital Signs Vital signs: Vital Signs Temp 99.0 F 03/18/24 14:00 Pulse 93 03/18/24 14:00 Resp 16 03/18/24 14:00 BP 169/105 03/18/24 14:00 Pulse Ox 98 03/18/24 14:00 FiO2 Intake & Output 03/17/24 03/18/24 03/18/24 18:59 06:59 18:59 Output Total 2846 403 1233 Balance -1600 -700 -1400 Output: Urine 0633 526 6301 Other: Voiding Method Urinal Urinal # Voids 1 # Bowel Movements 1 - Exam patient is awake, complaining of pain in the hands and back. 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 Acute kidney injury, ATN,and secondary to NSAIDs, nonoliguric currently improving with IV fluids and improved blood pressures. UA is completely benign. No obstruction noted on ultrasound. 2. EtOH abuse. Patient was admitted to [place] for about 1 week 3. History of hypertension 4. Rheumatoid arthritis followed by rheumatology, maintained on sulfasalazine and Humira as outpatient. 5. History of gout maintained on allopurinol Plan: Decrease IV fluids and continue to encourage increased oral intake. Continue to hold APRIL inhibitor's and patient is advised to avoid NSAIDs. Repeat labs in a.m. Avoid any other nephrotoxic agents.
[2024-03-18] MEDS: SODIUM BICARBONATE TAB 650 MG TAB PO SCH (21:55)
[2024-03-19 07:25] VITALS: BP 130/86; PULSE 85; RESP 16; TEMP 98
[2024-03-19 09:41] LABS: BUN/Creat Ratio 13.64 Ratio (12.00-20.00); Blood Urea Nitrogen 19.1 mg/dL (9.0-27.0); Glucose 99 mg/dL (70-110)
[2024-03-19 09:42] LABS: Calcium 8.9 mg/dL (8.7-10.3); Carbon Dioxide 21.6 mmol/L (21.6-31.8); Chloride 107 mmol/L (96-109); Sodium 142 mmol/L (135-145)
--- NOTE | 2024-03-19 12:50 | P.PN ---
Subjective patient is seen for follow-up for hyponatremia and acute kidney injury. Renal function has improved significantly with serum creatinine down to 1.38 mg/dL from 4.7 on initial admission. Patient is s/p IV fluids. Pain is better controlled. Urine output at 1.4 L for 24 hours. Objective - Vital Signs Vital signs: Vital Signs Temp 98.0 F 03/19/24 06:48 Pulse 85 03/19/24 06:48 Resp 16 03/19/24 06:48 BP 130/86 03/19/24 06:48 Pulse Ox 98 03/19/24 06:48 FiO2 Intake & Output 03/18/24 03/19/24 03/19/24 18:59 06:59 18:59 Intake Total 930 Output Total 1400 1950 Balance -1400 -1020 Intake: Oral 450 Other 480 Output: Urine 1400 1950 Other: Voiding Method Urinal # Voids 1 # Bowel Movements 1 - Exam patient is awake, complaining of pain in the hands and back. 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 Acute kidney injury, ATN,and secondary to NSAIDs, nonoliguric currently improving with IV fluids and improved blood pressures. UA is completely benign. No obstruction noted on ultrasound. 2. EtOH abuse. Patient was admitted to [place] for about 1 week 3. History of hypertension 4. Rheumatoid arthritis followed by rheumatology, maintained on sulfasalazine and Humira as outpatient. 5. History of gout maintained on allopurinol Plan: Decrease IV fluids and continue to encourage increased oral intake. Continue to hold APRIL inhibitor's and patient is advised to avoid NSAIDs. Repeat labs in a.m. Avoid any other nephrotoxic agents.
== END 2024-03-19 12:52 | DRG 469 ==
LOC: EC 13:12 → 4SSUR 15:18
PROVIDERS: ADMIT Hospitalist; ATTEND Hospitalist
DX: N17.0 Acute kidney failure with tubular necrosis (principal); F10.139 Alcohol abuse with withdrawal, unspecified; F41.9 Anxiety disorder, unspecified; I10 Essential (primary) hypertension; M06.9 Rheumatoid arthritis, unspecified; T39.395A Adverse effect of other nonsteroidal anti-inflammatory drugs [NSAID], initial encounter; D50.9 Iron deficiency anemia, unspecified; D53.9 Nutritional anemia, unspecified; E86.1 Hypovolemia; F17.290 Nicotine dependence, other tobacco product, uncomplicated; E87.1 Hypo-osmolality and hyponatremia; Z82.49 Family history of ischemic heart disease and other diseases of the circulatory system; M10.9 Gout, unspecified; R11.0 Nausea; E87.20 Acidosis, unspecified; G89.29 Other chronic pain; Z79.899 Other long term (current) drug therapy; Z96.612 Presence of left artificial shoulder joint; Z96.643 Presence of artificial hip joint, bilateral; X58.XXXA Exposure to other specified factors, initial encounter; Z91.030 Bee allergy status
CPT/HCPCS: 36415; 51798; 71046; 76770; 80048; 80053; 81003; 82607; 82728; 82746; 83540; 83550; 83605; 83690; 83735; 84484; 85025; 93005; 94640